=== PATIENT | female | born 1980 | race Caucasian/White ===

== ENCOUNTER 2023-10-09 11:40 | Emergency (ER) | payer MEDICARE, MEDICAID, SELFPAY ==
[2023-10-09 11:41] VITALS: BP 183/75; PULSE 67; TEMP 36.3; O2SAT 97; BMI 60.4
--- NOTE | 2023-10-09 12:54 | XR_ITS ---
The [address] [address] Patient Name: CARMEN MARIE MRN: [id number] date: 1980 Sex: F Assigned Patient Location: ER Current Patient Location: ER Accession/Order Number: [id number] Exam Date: 10/09/2023 13:15 Report Date: 10/09/2023 13:42 At the request of: LIBERTY FONG Procedure: XR chest 2V EXAMINATION: XR chest 2V HISTORY: sob COMPARISON: No relevant comparison available. TECHNIQUE: PA and lateral FINDINGS: LUNGS: No significant pulmonary parenchymal abnormalities. VASCULATURE: No increased pulmonary vasculature. PLEURA: No pneumothorax, effusion, or pleural thickening. Slight elevation the right hemidiaphragm CARDIAC: No cardiomegaly or cardiac silhouette abnormality. MEDIASTINUM: No visible mass or adenopathy. BONES: No fracture or visible bone lesion. OTHER: Right central line, the tip projects over the mid superior vena cava. Nipple piercings XR/XR chest 2V IMPRESSION: No acute cardiopulmonary process Electronically authenticated by: JOHAN ALARCON Date: 10/09/2023 13:42
[2023-10-09 13:45] VITALS: BP 138/78; PULSE 75; O2SAT 98
[2023-10-09 15:11] VITALS: BP 128/78; PULSE 70; O2SAT 100
--- NOTE | 2023-10-09 17:22 | ED.GENADUL1 ---
HPI HPI - General Adult General Chief complaint: Recheck/Abnormal Lab/Rx Stated complaint: CLOGGED PORT Time Seen by Provider: 10/09/23 12:54 Source: patient Mode of arrival: ambulance History of Present Illness HPI narrative: Patient is a 43-year-old female who is presenting to the ER with chief complaint of needing a new right chest dialysis cath. [facility] Dr. Diallo is the primary medical doctor for this physician. Patient was supposed to be sent to [facility]. EMS would not take patient to [facility], so they brought her to [facility]. Patient is very upset that she is here at [facility] because she knows that she needs dialysis, and she is due to see a vascular surgeon, however her biggest priority and concern right now is eating a sandwich. Patient initially arrived, all patient went to do was eat and drink and she was very upset that were not giving her something second possible surgery today. I was unaware of this patient, initially, did reach out to Dr. Diallo who is patient's physician for more information. It was noted that patient sees Dr. Parker from [facility] nephrology, that is the doctor that sees the patient in the [facility] where patient will get dialysis. Patient's vascular surgeon is from [facility]. Patient does not know the name of her soil conservation aide or her vascular surgeon. Patient has no headache, no chest pain or shortness of breath. No abdominal pain nausea vomiting. Patient states she is feeling up with fluid. All systems are negative except as noted/marked. All systems reviewed and otherwise negative. Nurses note and vital signs reviewed and patient is not hypoxic. General: The patient appears well and in no apparent distress. Patient is resting comfortably on cart. Patient is not toxic, lethargic, or listless Skin: Warm, dry, no pallor noted. There is no rash noted. No petechiae, purpura. Head: Normocephalic, atraumatic Eye: Normal conjunctiva, no drainage, EOMI. PERRL Ears, Nose, Mouth, and Throat: oral mucosa is moist. Nares patent. Mouth without vesicles. Cardiovascular: Regular Rate and Rhythm, no murmur, gallop, rub; patient has a right anterior chest wall candidate For dialysis access, the area around the cath is clean, dry, intact. Respiratory: Patient is in no distress, no accessory muscle use, lungs are clear to auscultation, no wheezing, rales or rhonchi Back: non-tender, no CVA tenderness bilaterally to percussion. No CT LS midline pain GI: no tenderness to palpation, no masses appreciated. No rebound, guarding, or rigidity noted. No distention Musculoskeletal: Patient has full range of motion of all of the extremities, no motor, sensory, or focal neurological deficits Neurological: A&O x4, normal speech Psychiatric: Cooperative Right anterior chest wall Related Data Allergies Allergy/AdvReac Type Severity Reaction Status Date / Time No Known Drug Allergies Allergy Verified 10/09/23 11:45 Opioid HPI Opioid Management Most Recent Opioid Data: No Data to Display Exam Constitutional Vital Signs, click to edit/add: Last Vital Signs Temp 97.3 F L 10/09/23 11:41 Pulse 70 10/09/23 15:11 Resp 16 10/09/23 15:11 BP 128/78 10/09/23 15:11 Pulse Ox 100 10/09/23 15:11 O2 Del Method Room Air 10/09/23 11:41 Course Vital Signs Vital signs: Vital Signs Temperature 97.3 F L 10/09/23 11:41 Pulse Rate 67 10/09/23 11:41 Respiratory Rate 22 H 10/09/23 11:41 Blood Pressure 183/75 H 10/09/23 11:41 Pulse Oximetry 97 10/09/23 11:41 Oxygen Delivery Method Room Air 10/09/23 11:41 Temperature 97.3 F L 10/09/23 11:41 Pulse Rate 70 10/09/23 15:11 Respiratory Rate 16 10/09/23 15:11 Blood Pressure 128/78 10/09/23 15:11 Pulse Oximetry 100 10/09/23 15:11 Oxygen Delivery Method Room Air 10/09/23 11:41 Medical Decision Making MDM Narrative Medical decision making narrative: I did speak to Dr. Diallo, who is patient's medical records tech at [facility]. He stated that patient should have been going to [facility], was uncertain why patient was taken to [facility]. Dr Diallo did see the patient in the nursing facility this morning. . Patient has been in the ER a lengthy amount of time today. Patient has been refusing IV and any lab work to be done initially. I did call Dr. Moncada, hospitalist from [facility] in [place] after my initial HPI and physical exam. After I spoke to Dr. Moncada, he agreed to admission at [facility] . He is aware the patient is refusing IV or lab work at this time until she gets to the admitting facility. Patient has been very upset with her miscommunication, upset that she was sent to the ER instead of going to [facility] by EMS, upset that she cannot eat and drink. ER nurse parks and recreation manager Brenda Ward RN was made aware and talk to the patient with me at bedside initially. After I initially spoke to Dr. Moncada, approximately 2 and half hours later we did obtain a bed number, and Dr. Moncada did then call me back right after he had a bed number [facility] and stated that we are not able to send patient to [facility] because the patient cannot have any type of vascular procedure until Thursday because of the weekend and also there is no dialysis that can be done this weekend. Dr Moncada apologized, and is recommending patient be transferred to other facilities. Patient was given this information with Brenda Ward RN and nurse parks and recreation manager that we are not able to send patient to [facility] at this time. Patient refused to go to [facility]. This was the second time that myself and Brenda Ward spoke to this patient at bedside about her concerns about her ER stay. Patient's is most upset again about her not eating or drinking. Patient is still refusing any type of IV, lab access. Patient is aware that her potassium levels could be very high, electrolytes could be abnormal, we could be missing life-threatening lab values. Patient is aware and disability, patient has a functional decision-making capacity to refuse any type of other care at [facility] at this time. 1615 I have spoken to the vascular surgeon twice, Dr. Gage Dominguez. He is aware of this patient very well, he states that patient will most likely need a permacath or a Emmanuel cath today, and will need dialysis today, especially since she has missed most of her dialysis this week. He is aware that she missed dialysis on Thursday, Thursday, and Thursday. He is also aware that patient is refusing IV, blood work he is also aware that she is very upset about all the miscommunication, not being at [facility], not being allowed to eat or drink.. He was excepting patient in consultation to [facility] if she agrees. When I talked the patient again, she is agreeing to go to [facility], and she is asking again for something eat or drink. I told her she is n.p.o. per Dr. Dominguez because she will be having vascular surgery procedure most likely this evening 1700 I did speak to the hospitalist from the [facility], Dr Garcia. He is excepting medical hospitalist, he is aware of vascular surgery to be in consultation. He is aware that I have spoken to Dr. Dominguez, but that Dr. Alcantara will be in consultation. Critical care time 55 minutes exclusive from separate billable procedures that were performed. The following was considered in the determination of critical care but not limited to the level of medical decision making, intensive cardiac and/or respiratory monitoring, frequent vital sign monitoring, evaluation of laboratory studies, evaluation of radiographic studies, oxygen monitoring, and constant monitoring and speaking to family at bedside Discharge Plan Discharge Chief Complaint: Recheck/Abnormal Lab/Rx Clinical Impression: Dialysis catheter clot or failure Patient Disposition: [facility] Time of Disposition Decision: 16:30 Discharge location: [facility],Dr Garcia hospitalist with Dr DOMINGUEZ vascular sx Condition: Fair
[2023-10-09 17:42] VITALS: BP 134/80; PULSE 73; O2SAT 100
[2023-10-09 20:44] VITALS: BP 170/90; PULSE 74; O2SAT 100
[2023-10-09] MEDS: CARVEDILOL 25 MG TABLET PO (21:10)
[2023-10-09] MEDS: LORAZEPAM 0.5 MG TABLET 1 MG PO (21:10)
[2023-10-09] MEDS: CYCLOBENZAPRINE HCL 10 MG TABLET PO (21:11)
[2023-10-09] MEDS: HYDRALAZINE HCL 25 MG TABLET 50 MG PO (21:11)
[2023-10-09 23:09] VITALS: BP 140/82
== END 2023-10-09 23:25 | disposition short-term general hospital (02) ==
PROVIDERS: Emergency Provider Internal Medicine; PCP Family Medicine
DX: T82.9XXA Unspecified complication of cardiac and vascular prosthetic device, implant and graft, initial encounter (principal); Z99.2 Dependence on renal dialysis
CPT/HCPCS: 71046; 99285

== ENCOUNTER 2024-06-17 15:25 | Outpatient (REF) | payer MEDICARE, MEDICAID, SELFPAY ==
[2024-06-17 15:39] LABS: Hemoglobin 8.3 g/dL (12.0-16.0); Mean Corpuscular HGB Conc 31.9 g/dL (29.9-35.2); Mean Corpuscular Hemoglobin 34.2 pg (26.7-34.0); Mean Platelet Volume 10.6 fL (9.5-13.5); Platelet Count 103 10^3/uL (150-450); Red Cell Distribution Width 16.1 % (11.0-15.0); White Blood Count 2.9 10^3/uL (4.0-11.0)
[2024-06-17 16:04] LABS: Anion Gap 12.6; BUN Creatinine Ratio 4.6; Calcium 7.6 mg/dL (8.5-10.1); Carbon Dioxide 29.7 mmol/L (21.0-32.0); Chloride 94 mmol/L (98-107); Estimated GFR (African America 8 (>=60 mL/min/1.73m^2); Estimated GFR (Non-African Ame 6 (>=60 mL/min/1.73m^2); Glucose 232 mg/dL (74-106); Potassium 4.3 mmol/L (3.5-5.1); Sodium 132 mmol/L (136-145)
[2024-06-17 17:35] LABS: Lymphocytes Absolute Manual 0.46 10^3/uL (1.20-3.80); Monocytes Absolute Manual 0.17 10^3/uL (0.30-0.80); Red Blood Count 2.43 10^6/uL (4.20-5.40); Segmented Neut Absolute Manual 2.26 10^3/uL (1.4-6.5)
== END 2024-06-17 15:26 | disposition home or self-care (01) ==
LOC: LAB 15:25
PROVIDERS: PCP Family Medicine; Visit Provider Nurse Practitioner Family
DX: N18.9 Chronic kidney disease, unspecified (principal)
CPT/HCPCS: 36415; 80048; 85007; 85027

== ENCOUNTER 2025-01-31 11:57 | Outpatient (REF) | payer MEDICARE, MEDICAID, SELFPAY ==
--- OUTSIDE RECORDS SUMMARY | 2023-12-22 04:30 | XMS_ITS ---
Author Organization The [facility] in [place] Address [address] [place] [address] Care Team Providers Care Director Of Strategy & Mobile Name Role Phone Imani EDWARDS, Marciano Primary Care Provider Unavailabl e Provider, ASC Unavailable [phone] Encounters Encounter Location Date Provider Diagnosis [facility] [address] [place] [address] 12/22/2023 [facility] Provider Plan Of Treatment No Information Progress Notes * Cassy MARIEOB:1980 ( 44 yo F)Acc No.[id number]:12/22/2023 UNLOCKED PROGRESS NOTE Patient:?CYNTHIA Kimberly :?ASC ProviderDOB:1980???Age:43 Y???Sex: FemaleDate:12/22/2023hone:[phone]:[address] [place] [id number]:Aaliyah Dominguez In:07:50 AM EST * * Electronic signature of ASC Provider on 01/31/2025 at 12:02 PM EDTSign off status: PendingVisit Status:?ARR (Check-In) * Provider: [employer] [place] Provider Date: 0 12/22/2023 Generated for Printing/Faxing/eTransmitting on:?01/31/2025 12:02 PM EDT
--- OUTSIDE RECORDS SUMMARY | 2023-12-29 02:45 | XMS_ITS ---
Author Organization The [facility] in [place] Address [address] [place] [address] Care Team Providers Care Milling Machine Operator Name Role Phone Imani EDWARDS, Marciano Primary Care Provider Shant Martínez [phone] REASON FOR VISIT -1 Week Follow Up- left endovascular creation Encounters Encounter Location Date Provider Diagnosis [facility] [address] [place] [address] 12/29/2023 Shant Craig Plan Of Treatment No Information Progress Notes * Cassy MARIEOB:1980 ( 44 yo F)Acc No.[id number]:12/29/2023 UNLOCKED PROGRESS NOTE Progress Note Patient: Kimberly WISDOM :?Shant Craig, MDDOB:1980???Age:43 Y ???Sex:FemaleDate:4Phone:[phone]:[address] [place], [place] [id number]:Marciano Diallo MD Subjective: * Chief Complaints: * 1 . -1 Week Follow Up- left endovascular creation. * Medical History: Objective: * Vitals: Assessment: Plan: * Treatment: * * Electronic signature of Shant rCaig MD, [id number] on 01/31/2025 at 12:02 PM EDT Sign off status: PendingVisit Status:?CANC (Cancelled) * Provider: Jimena Craig MD Date: 0 12/29/2023 Generated for Printing/Faxing/eTransmitting on:?01/31/2025 12:02 PM EDT
--- OUTSIDE RECORDS SUMMARY | 2023-12-29 09:30 | XMS_ITS ---
Author Organization The [facility] in [place] Address [address] [place] [address] Care Team Providers Care Temperer Name Role Phone Imani EDWARDS, Marciano Primary Care Provider Shant Martínez [phone] REASON FOR VISIT LT BC AVF Encounters Encounter Location Date Provider Diagnosis [facility] [address] [place] [address] 12/29/2023 Shant Craig Plan Of Treatment No Information Progress Notes * CYNTHIAMaverickMilagrosOB:1980 ( 44 yo F)Acc No.[id number]:12/29/2023 UNLOCKED PROGRESS NOTE Patient:Kimberly LINN :?Shant Craig, MDDOB:1980???Age:43 Y ???Sex:FemaleDate:4Phone:[phone]:[address] [place], [place] [phone]:Marciano Diallo MD * * Electronic signature of Shant Craig MD, [id number] on 01/31/2025 at 12:02 PM EDT Sign off status: PendingVisit Status:?R/S By O/P (Rescheduled by Office/Provider) * Provider: Jimena Craig MD Date: 0 12/29/2023 Generated for Printing/Faxing/eTransmitting on:?01/31/2025 12:02 PM EDT
--- OUTSIDE RECORDS SUMMARY | 2024-01-05 02:45 | XMS_ITS ---
Author Organization The [facility] in [place] Address [address] [place] [address] Care Team Providers Care Dairy Husbandry Teacher Name Role Phone Imani EDWARDS, Marciano Primary Care Provider Shant Martínez [phone] REASON FOR VISIT 1 week f/u fistula creation Encounters Encounter Location Date Provider Diagnosis [facility] [address] [place] [address] 01/05/2024 Shant Craig Plan Of Treatment No Information Progress Notes * Cassy MARIEOB:1980 ( 44 yo F)Acc No.[id number]:01/05/2024 UNLOCKED PROGRESS NOTE Progress Note Patient: Kimberly WISDOM :?Shant Craig, MDDOB:1980???Age:43 Y ???Sex:FemaleDate:4Phone:[phone]:[address] [place], [place] [phone]:Marciano Diallo MD Subjective: * Chief Complaints: * 1 . 1 week f/u fistula creation. * Medical History: Objective: * Vitals: Assessment: Plan: * Treatment: * * Electronic signature of Shant Craig MD, [id number] on 01/31/2025 at 12:03 PM EDT Sign off status: PendingVisit Status:?OFF CANC (OFFICE CANCEL) * Provider: Jimena Craig MD Date: 0 01/05/2024 Generated for Printing/Faxing/eTransmitting on:?01/31/2025 12:03 PM EDT
--- OUTSIDE RECORDS SUMMARY | 2024-01-05 09:30 | XMS_ITS ---
Author Organization The [facility] in [place] Address [address] [place] [address] Care Team Providers Care Chief Hydroelectric Station Operator Name Role Phone Imani EDWARDS, Marciano Primary Care Provider Unavailabl e Provider, ASC Unavailable [phone] Encounters Encounter Location Date Provider Diagnosis [facility] [address] [place] [address] 01/05/2024 [facility] Provider Plan Of Treatment No Information Progress Notes * Cassy MARIEOB:1980 ( 44 yo F)Acc No.[id number]:01/05/2024 UNLOCKED PROGRESS NOTE Patient:?CYNTHIA Kimberly :?ASC ProviderDOB:1980???Age:43 Y???Sex: FemaleDate:01/05/2024hone:[phone]:[address] [place] [phone]:Aaliyah Dominguez In:01:05 PM EST * * Electronic signature of [facility] Provider on 01/31/2025 at 12:03 PM EDTSign off status: PendingVisit Status:?ARR (Check-In) * Provider: A [place] Provider Date: 0 01/05/2024 Generated for Printing/Faxing/eTransmitting on:?01/31/2025 12:03 PM EDT
--- OUTSIDE RECORDS SUMMARY | 2025-01-17 04:30 | XMS_ITS ---
Author Organization [facility] Address [address] [place] [address] [address] [place] [address] Care Team Providers Care Site Project Manager Name Role Phone JUANA AVALOS Unavailable [phone] HOBBS ELA Unavailable [phone] REASON FOR VISIT Respiratory failure, Tobacco abuse, IVA Encounters Encounter Location Date Provider Diagnosis [facility] [address] [id number] 01/17/2025 E[facility] HOBBS Asthma J45.909 ; Chr onic hypoxic respiratory failure J96.11 ; Chronic diastolic heart failure I50.32 ; Pulmonary hypertension I27.20 ; Tobacco use Z72.0 and Obstructive sleep apnea (adult) (pediatric) G47.33 Assessments Encounter Date Diagnosis (ICD Code) Assessment Notes Treatment Notes Treatment Clinical Notes Section Notes 01/17/2025 Asthma (ICD-10 - J45.909) 01/17/2025hronic hypoxic respiratory failure (ICD-10 - J96.11)01/17/2025hronic diastolic heart failure (ICD-10 - I50.32)01/17/2025Pulmonary hypertension (ICD- 10 - I27.20)01/17/2025Tobacco use (ICD-10 - Z72.0)01/17/2025Obstructive sleep apnea (adult) (pediatric) (ICD-10 - G47.33)01/17/2025OtherSeen in collaboration and discussed plan of care with Dr. Juana Avalos Plan Of Treatment Treatment Notes Assessment Notes Other Seen in collaboratio n and discussed plan of care with Dr. Juana Avalos Next Appt Details Follow Up: 1 Week, Reason: Progress Notes * Cassy MARIEOB:1980 ( 44 yo F)Acc No.[id number]:01/17/2025 Progress Notes Patient: Kimberly WISDOM Provider:?Darellrebecca HobbsSEEMADOB:1980???Age:44 Y???Sex:FemaleDate:01/17/2025Phone:Address:[address] [facility], [phone] Subjective: * Chief Complaints: * R espiratory failureTobacco abuseOSA * HPI: ???Constitutional:? Continuing to see per facility request for pulmonary management. Evaluated patient in the facility today. Reviewed chart, vital signs, and any new orders. Discussedpulmonary status with the nurse and RT. Physical examination unchanged. Continue current orders as written. Patient is sitting at side of bed and reports she has a productive cough. She would like totry a Mucinex. No RT concerns.? Impression: Chronic hypoxic respiratory failure Asthma Chronic diastolic Heart failure Pulmonary hypertension? ESRD on HD Tobacco Abuse? Moderate IVA, test 07/16/24 Plan:? Start Mucinex Continue Auto CPAP 10-20 cmH2O (Repeat sleep study 10/20/24 with AHI 23 on CPAP, pt refused AVAPS and requested CPAP back) Spot check at HS, 1- 3LNC as needed to maintain saturations 90% or above, recommend need for nocturnal O2, pt refuses Albuterol neb Q6 PRN, Albuterol inhaler PRN Lasix 40mg daily Refuses smoking cessation education BMI reviewed, encourage weight loss and healthy diet with exercise Will continue to monitor pulmonary status. * ROS: ???All Other Systems:?Review of Systems (ROS)?All others negative except those mentioned in HPI, See HPI for details.? * Medical History: * Surgical History: * Hospitalization/Major Diagno stic Procedure: * Medications: Objective: * Vitals: * Examination: ???General Examination: ?GENERAL APPEARANCE:?morbidly obese, in no acute distress.?ORAL CAVITY:?mucosa moist.?THROAT:?normal.?NECK/THYROID:?neck supple, full range of motion, no cervical lymphadenopathy.?SKIN:?no suspicious lesions, warm and dry.?HEART:?no murmurs, regular rate and rhythm, S1, S2 normal. ?LUNGS:?clear to auscultation bilaterally.?EXTREMITIES:?no clubbing, cyanosis, or edema.?? ? Assessment: * Assessment: 1.?Chronic hypoxic respiratory failure - J96.11 (Primary)???2.?Asthma - J45 .909???3.?Chronic diastolic heart failure - I50.32???4.?Pulmonary hypertension - I27.20???5.?Tobacco use - Z72.0???6.?Obstructive sleep apnea (adult) (pediatric) - G47.33???Specify :Moderate??? Plan: * Treatment: Notes: Seen in collaboration and discussed plan of care with Dr. Juana Avalos?? * Procedure Codes: 9 9308 NURSING FAC CARE [id number] BMI >=30 CALCUATE W/FOLLOWUP * Follow Up: 1 Week * * Sign off status: Completed true * Appointment Provider: Abelino Hobbs NP Date: Generated for Printing/Faxing/eTransmitting on:?01/31/2025 12:01 PM EDT History and Physical Notes * HPI (History of Present Illness) CategorySub-CategoryDetailNotesCategory NotesConstitutional Continuing to see per facility request for pulmonary management. Evaluated patient in the facility today. Reviewed chart, vital signs, and any new orders. Discussedpulmonary status with the nurse and RT. Physical examination unchanged. Continue current orders as written. Patient is sitting at side of bed and reports she has a productive cough. She would like totry a Mucinex. No RT concerns. Impression: Chronic hypoxic respiratory failure Asthma Chronic diastolic Heart failure Pulmonary hypertension ESRD on HD Tobacco Abuse Moderate IVA, test 07/16/24 Plan: Start Mucinex Continue Auto CPAP 10-20 cmH2O (Repeat sleep study 10/20/24 with AHI 23 on CPAP, pt refused AVAPS and requested CPAP back) Spot check at HS, 1- 3LNC as needed to maintain saturations 90% or above, recommend need for nocturnal O2, pt refuses Albuterol neb Q6 PRN, Albuterol inhaler PRN Lasix 40mg daily Refuses smoking cessation education BMI reviewed, encourage weight loss and healthy diet with exercise Will continue to monitor pulmonary status Examination CategorySub-CategoryDetailNotesCategory NotesGeneral ExaminationGENERAL APPEARANCE:morbidly obese, in no acute distressTHROAT:normalNECK/THYROID:neck supple, full range of motion, no cervical lymphadenopathyHEART:no murmurs, regular rate and rhythm, S1, S2 normalLUNGS:clear to auscultation bilaterally SKIN:no suspicious lesions, warm and dryEXTREMITIES:no clubbing, cyanosis, or edemaORAL CAVITY:mucosa moist
--- OUTSIDE RECORDS SUMMARY | 2025-01-19 04:30 | XMS_ITS ---
Author Organization [facility] Address [address] [place] [address] [address] [place] [address] Care Team Providers Care Bleach Chlorinator Name Role Phone JUANA AVALOS Unavailable [phone] SELL RANDELL Unavailable [phone] REASON FOR VISIT Respiratory failure, Tobacco abuse, IVA Encounters Encounter Location Date Provider Diagnosis [place] [address] [phone] 01/19/2025 RANDELL SELL Asthma J45.909 ; Chr onic hypoxic respiratory failure J96.11 ; Chronic diastolic heart failure I50.32 ; Pulmonary hypertension I27.20 ; Tobacco use Z72.0 and Obstructive sleep apnea (adult) (pediatric) G47.33 Assessments Encounter Date Diagnosis (ICD Code) Assessment Notes Treatment Notes Treatment Clinical Notes Section Notes 01/19/2025 Asthma (ICD-10 - J45.909) 01/19/2025hronic hypoxic respiratory failure (ICD-10 - J96.11)01/19/2025hronic diastolic heart failure (ICD-10 - I50.32)01/19/2025Pulmonary hypertension (ICD- 10 - I27.20)01/19/2025Tobacco use (ICD-10 - Z72.0)01/19/2025Obstructive sleep apnea (adult) (pediatric) (ICD-10 - G47.33)01/19/2025OtherSeen in collaboration and discussed plan of care with Dr. Juana Avalos Plan Of Treatment Treatment Notes Assessment Notes Other Seen in collaboratio n and discussed plan of care with Dr. Juana Avalos Next Appt Details Follow Up: 1 Week, Reason: Progress Notes * Cassy MARIEOB:1980 ( 44 yo F)Acc No.[id number]:01/19/2025 Progress Notes Patient: Kimberly WISDOM Provider:?RANDELL PACHECO, SEEMADOB:1980???Age: 44 Y???Sex:FemaleDate:01/19/2025Phone:Address:[address] [facility], [phone] Subjective: * Chief Complaints: * R espiratory failureTobacco abuseOSA * HPI: ???Constitutional:? Continuing to see per facility request for pulmonary management. Rounded at bedside today for pulmonary rounds with the respiratory therapist. Reviewed orders. Willcontinue current plan of care at this time. Resident is resting in bed. No distress. No RT concerns.? Impression: Chronic hypoxic respiratory failure Asthma Chronic diastolic Heart failure Pulmonary hypertension? ESRD on HD Tobacco Abuse? Moderate IVA, test 07/16/24 Plan:? Continue Auto CPAP 10-20 cmH2O PRN (Repeat sleep study 10/20/24 with AHI 23 on CPAP, pt refused AVAPS and requested CPAP back) Spot check at HS, 1- 3LNC as needed to maintain saturations 90% or above, recommend need for nocturnal O2, pt refuses Albuterol neb Q6 PRN, Albuterol inhaler PRN Lasix 40mg daily Mucinex PRN Refuses smoking cessation education BMI reviewed, encourage [...] Procedure Codes: 9 9308 NURSING FAC CARE [id number] BMI >=30 CALCUATE W/FOLLOWUP * Follow Up: 1 Week * * Sign off status: Completed true * Appointment Provider: Krissy PACHECO NP Date: Generated for Printing/Faxing/eTransmitting on:?01/31/2025 12:01 PM EDT History and Physical Notes * HPI (History of Present Illness) CategorySub-CategoryDetailNotesCategory NotesConstitutional Continuing to see per facility request for pulmonary management. Rounded at bedside today for pulmonary rounds with the respiratory therapist. Reviewed orders. Willcontinue current plan of care at this time. Resident is resting in bed. No distress. No RT concerns. Impression: Chronic hypoxic respiratory failure Asthma Chronic diastolic Heart failure Pulmonary hypertension ESRD on HD Tobacco Abuse Moderate IAV, test 07/16/24 Plan: Continue Auto CPAP 10-20 cmH2O PRN (Repeat sleep study 10/20/24 with AHI 23 on CPAP, pt refused AVAPS and requested CPAP back) Spot check at HS, 1- 3LNC as needed to maintain saturations 90% or above, recommend need for nocturnal O2, pt refuses Albuterol neb Q6 PRN, Albuterol inhaler PRN Lasix 40mg daily Mucinex PRN Refuses smoking cessation education BMI reviewed, encourage [...]
--- OUTSIDE RECORDS SUMMARY | 2025-01-22 04:30 | XMS_ITS ---
Author Organization [facility] Address [address] [place] [address] [address] [place] [address] Care Team Providers Care Mental Health Associate Name Role Phone LAXMI AVALOSY Unavailable [phone] REASON FOR VISIT Respiratory failure, Tobacco abuse, IVA Encounters Encounter Location Date Provider Diagnosis [place] 401 [facility] it[address] [place], [place] [phone] 01/22/2025 JUANA AVALOS Asthma J45.909 ; Chr onic hypoxic respiratory failure J96.11 ; Chronic diastolic heart failure I50.32 ; Pulmonary hypertension I27.20 ; Tobacco use Z72.0 and Obstructive sleep apnea (adult) (pediatric) G47.33 Assessments Encounter Date Diagnosis (ICD Code) Assessment Notes Treatment Notes Treatment Clinical Notes Section Notes 01/22/2025 Asthma (ICD-10 - J45.909) 01/22/2025hronic hypoxic respiratory failure (ICD-10 - J96.11)01/22/2025hronic diastolic heart failure (ICD-10 - I50.32)01/22/2025Pulmonary hypertension (ICD- 10 - I27.20)01/22/2025Tobacco use (ICD-10 - Z72.0)01/22/2025Obstructive sleep apnea (adult) (pediatric) (ICD-10 - G47.33) Plan Of Treatment Next Appt Details Follow Up: 1 Week, Reason: Progress Notes * Cassy MARIEOB:1980 ( 44 yo F)Acc No.[id number]:01/22/2025 Progress Notes Patient: Kimberly WISDOM :?MITZI JaramilloOB:1980???Age:44 Y???Sex: FemaleDate:01/22/2025Phone:Address:[address] [place], [place] [phone] Subjective: * Chief Complaints: * R espiratory failureTobacco abuseOSA * HPI: ???Constitutional:? Continuing to see per facility request for pulmonary management. Discussed residents pulmonary status with the respiratory therapist in great detail. Reviewed orders and plan of care. Continue the same for now. Please let me know of any acute changes. Impression: Chronic hypoxic respiratory failure Asthma Chronic [...] (pediatric) - G47.33???Specify :Moderate??? Plan: * Treatment: * Procedure Codes: 9 9308 NURSING FAC CARE [id number] BMI >=30 CALCUATE W/FOLLOWUP * Follow Up: 1 Week * * ign off status: Completed true * Provider: Kyle Avalos MD Date: 1 Generated for Printing/Faxing/eTransmitting on:?01/31/2025 12:03 PM EDT History and Physical Notes * HPI (History of Present Illness) CategorySub-CategoryDetailNotesCategory NotesConstitutional Continuing to see per facility request for pulmonary management. Discussed residents pulmonary status with the respiratory therapist in great detail. Reviewed orders and plan of care. Continue the same for now. Please let me know of any acute changes. Impression: Chronic hypoxic respiratory failure Asthma Chronic diastolic Heart failure Pulmonary hypertension ESRD on HD Tobacco Abuse Moderate IVA, test 07/16/24 Plan: Continue Auto CPAP 10-20 [...]
--- OUTSIDE RECORDS SUMMARY | 2025-01-24 04:30 | XMS_ITS ---
Author Organization [facility] Address [address] [place] [address] [address] [place] [address] Care Team Providers Care Manager Utilization Review Name Role Phone JUANA AVALOS Unavailable [phone] ANJEL ELA Unavailable [phone] REASON FOR VISIT Respiratory failure, Tobacco abuse, IVA Encounters Encounter Location Date Provider Diagnosis [place] [address] [phone] 01/24/2025 ELA HOBBS Asthma J45.909 ; Chr onic hypoxic respiratory failure J96.11 ; Chronic diastolic heart failure I50.32 ; Pulmonary hypertension I27.20 ; Tobacco use Z72.0 and Obstructive sleep apnea (adult) (pediatric) G47.33 Assessments Encounter Date Diagnosis (ICD Code) Assessment Notes Treatment Notes Treatment Clinical Notes Section Notes 01/24/2025 Asthma (ICD-10 - J45.909) 01/24/2025hronic hypoxic respiratory failure (ICD-10 - J96.11)01/24/2025hronic diastolic heart failure (ICD-10 - I50.32)01/24/2025Pulmonary hypertension (ICD- 10 - I27.20)01/24/2025Tobacco use (ICD-10 - Z72.0)01/24/2025Obstructive sleep apnea (adult) (pediatric) (ICD-10 - G47.33)01/24/2025OtherSeen in collaboration and discussed plan of care with Dr. Juana Avalos Plan Of Treatment Treatment Notes Assessment Notes Other Seen in collaboratio n and discussed plan of care with Dr. Juana Avalos Next Appt Details Follow Up: 1 Week, Reason: Progress Notes * Cassy MARIEOB:1980 ( 44 yo F)Acc No.[id number]:01/24/2025 Progress Notes Patient: Kimberly WISDOM Provider:?Briankike HobbsSEEMADOB:1980???Age:44 Y???Sex:FemaleDate:01/24/2025Phone:Address:[address] [facility], [phone] Subjective: * Chief Complaints: * R espiratory failureTobacco abuseOSA * HPI: ???Constitutional:? Continuing to see per facility request for pulmonary management. Performed bedside rounds with the respiratory therapist today. Discussed the patients pulmonary status and current orders. Discussed concerns or needs by RT. Continue the orders at this time. She remains on RA and free from distress. No RT concerns. Heading outside. Feels better after the Mucinex. Impression: Chronic hypoxic respiratory failure Asthma Chronic [...] Procedure Codes: 9 9308 NURSING FAC CARE [id number] BMI >=30 CALCUATE W/FOLLOWUP * Follow Up: 1 Week * * Sign off status: Completed true * Appointment Provider: Abelino Hobbs NP Date: Generated for Printing/Faxing/eTransmitting on:?01/31/2025 12:02 PM EDT History and Physical Notes * HPI (History of Present Illness) CategorySub-CategoryDetailNotesCategory NotesConstitutional Continuing to see per facility request for pulmonary management. Performed bedside rounds with the respiratory therapist today. Discussed the patients pulmonary status and current orders. Discussed concerns or needs by RT. Continue the orders at this time. She remains on RA and free from distress. No RT concerns. Heading outside. Feels better after the Mucinex. Impression: Chronic hypoxic respiratory failure Asthma Chronic [...]
--- OUTSIDE RECORDS SUMMARY | 2025-01-26 04:30 | XMS_ITS ---
Author Organization [facility] Address [address] [place] [address] [address] [place] [address] Care Team Providers Care Pastry Assistant Name Role Phone JUANA AVALOS Unavailable [phone] RANDELL PACHECO Unavailable [phone] REASON FOR VISIT Respiratory failure, Tobacco abuse, IVA Encounters Encounter Location Date Provider Diagnosis [place] [address] [phone] 01/26/2025 RANDELL SELL Asthma J45.909 ; Chr onic hypoxic respiratory failure J96.11 ; Chronic diastolic heart failure I50.32 ; Pulmonary hypertension I27.20 ; Tobacco use Z72.0 and Obstructive sleep apnea (adult) (pediatric) G47.33 Assessments Encounter Date Diagnosis (ICD Code) Assessment Notes Treatment Notes Treatment Clinical Notes Section Notes 01/26/2025 Asthma (ICD-10 - J45.909) 01/26/2025hronic hypoxic respiratory failure (ICD-10 - J96.11)01/26/2025hronic diastolic heart failure (ICD-10 - I50.32)01/26/2025Pulmonary hypertension (ICD- 10 - I27.20)01/26/2025Tobacco use (ICD-10 - Z72.0)01/26/2025Obstructive sleep apnea (adult) (pediatric) (ICD-10 - G47.33) Plan Of Treatment Next Appt Details Follow Up: 1 Week, Reason: Progress Notes * Amber MARIE:1980 ( 44 yo F)Acc No.[id number]:01/26/2025 Progress Notes Patient: Kimberly WISDOM Provider:?RANDELL PACHECO NPDOB:1980???Age: 44 Y???Sex:FemaleDate:01/26/2025Phone:Address:[address] [facility], [phone] Subjective: * Chief Complaints: * R espiratory failureTobacco abuseOSA * HPI: ???Constitutional:? Continuing to see per facility request for pulmonary management. Performed bedside rounds with the respiratory therapist today. Discussed the patients pulmonary status and current orders. Discussed concerns or needs by RT. Continue the orders at this time. Patientis up in her wheelchair and free from distress. She reports the Mucinex is helping and would like it to continue PRN. She is smoking outside. No RT concerns. Impression: Chronic hypoxic respiratory [...] Procedure Codes: 9 9308 NURSING FAC CARE [id number] BMI >=30 CALCUATE W/FOLLOWUP * Follow Up: [...] RT. Continue the orders at this time. Patientis up in her wheelchair and free from distress. She reports the Mucinex is helping and would like it to continue PRN. She is smoking outside. No RT concerns. Impression: Chronic hypoxic respiratory [...]
--- OUTSIDE RECORDS SUMMARY | 2025-01-29 04:30 | XMS_ITS ---
Author Organization [facility] Address [address] [place] [address] [address] [place] [address] Care Team Providers Care Slot Editor Name Role Phone LAXMI AVALOSY Unavailable [phone] REASON FOR VISIT Respiratory failure, Tobacco abuse, IVA Encounters Encounter Location Date Provider Diagnosis [place] 401 [facility] it[address] [place], [place] [phone] 01/29/2025 JUANA AVALOS Asthma J45.909 ; Chr onic hypoxic respiratory failure J96.11 ; Chronic diastolic heart failure I50.32 ; Pulmonary hypertension I27.20 ; Tobacco use Z72.0 and Obstructive sleep apnea (adult) (pediatric) G47.33 Assessments Encounter Date Diagnosis (ICD Code) Assessment Notes Treatment Notes Treatment Clinical Notes Section Notes 01/29/2025 Asthma (ICD-10 - J45.909) 5Chronic hypoxic respiratory failure (ICD-10 - J96.11)01/29/2025hronic diastolic heart failure (ICD-10 - I50.32)01/29/2025Pulmonary hypertension (ICD- 10 - I27.20)01/29/2025Tobacco use (ICD-10 - Z72.0)01/29/2025Obstructive sleep apnea (adult) (pediatric) (ICD-10 - G47.33) Plan Of Treatment Next Appt Details Follow Up: 1 Week, Reason: Progress Notes * Cassy MARIEOB:1980 ( 44 yo F)Acc No.[id number]:01/29/2025 Progress Notes Patient: Kimberly WISDOM :?MITZI JaramilloOB:1980???Age:44 Y???Sex: FemaleDate:01/29/2025Phone:Address:[address] [place], [place] [phone] Subjective: * Chief Complaints: * R espiratory [...] Procedure Codes: 9 9308 NURSING FAC CARE [id number] BMI >=30 CALCUATE W/FOLLOWUP * Follow Up: [...]
--- OUTSIDE RECORDS SUMMARY | 2025-01-31 12:01 | XMS_ITS | Clinical Summary ---
Author Organization [facility] Address [address] [place] [address] Care Team Providers Care Blade Bender Furnace Tender Name Role Phone Marciano Diallo MD Unavailable Unallocated, Noms Provider MD Primary Care Provi mariaelena Allergies No known active allergies Medications MedicationSigDispense QuantityRefillsLast FilledStart DateEnd DateStatus diazePAM (Valium) 5 MG tablet Indications:AnxietyGive 1 tablet prior to leaving the facility on 01/05/24 for a fistula placement and 1 tablet to be taken at the appointment. 2 tablet 4Active pregabalin (Lyrica) 25 MG capsule Indications:Diabetic neuropathy, painful (HCC)Take 1 capsule (25 mg) by mouth in the morning and 1 capsule (25 mg) in the evening and 1 capsule (25 mg) before bedtime. 90 capsule 5Active LORazepam (Ativan) 1 MG tablet Indications:AnxietyTake 1 tablet (1 mg) by mouth 3 (three) times a day as needed for anxiety 90 tablet 5Active LORazepam (Ativan) 0.5 MG tablet Indications:AnxietyTake 1 tablet (0.5 mg) by mouth every 8 (eight) hours if needed for anxiety for up to 5 days 15 tablet 5Active pregabalin (Lyrica) 25 MG capsule Indications:Diabetic neuropathy, painful (HCC)Take 1 capsule (25 mg) by mouth in the morning and 1 capsule (25 mg) in the evening and 1 capsule (25 mg) before bedtime. 90 capsule 5Active LORazepam (Ativan) 1 MG tablet Indications:AnxietyTake 1 tablet (1 mg) by mouth every 8 (eight) hours if needed for anxiety for up to 14 days 42 tablet 5Active LORazepam (Ativan) 1 MG tablet Indications:AnxietyTake 1 tablet (1 mg) by mouth every 8 (eight) hours 90 tablet Discontinued(Reorder)Hospital, Clinic, or Other Facility Administered MedicationOrdered DoseRouteFrequencyStart DateEnd DateStatus triamcinolone acetonide (Kenalog) injection 5 mg Indications:Keloid scar5 jfZDUghb10/29/40401301/09/2025Ended Active Problems No known active problems Encounters DateTypeDepartmentCare TsqcQkbehpxpzla80/06/2025Telephone [facility] [address] [facility] [address] [place] [phone] Oneida Kan, SEEMA 01/09/2025 2:40 PM EDTOffice Visit [facility] [address] [place] [address] Alyssa Sutherland PA Seborrheic keratosis (Primary Dx); Keloid scar; Milia; Other specified erythematous dactfnfheu62/29/2025amboo flowsheet [facility] [address] [place] [address] Alyssa Sutherland PA 01/09/20256315Agfpjn88/09/2025bstract [facility] [address] [place] [address] Unallocated, Radhas MD Irene 12/13/2024bstract [facility] [address] [place] [phone] Unallocated, Radhas MD Irene 12/05/2024bstract [facility] [address] [place] [phone] Unallocated, Noms MD Irene 12/04/2024Results Follow-Up [facility] [address] [facility] [address] [place] [phone] Oneida Kan, SUPERVISOR [employer] SERVICES MR abdomen wo mynifgos03/06/2025Telephone [facility] [address] [facility] [address] [place] [phone] Oneida Kan NP 11/07/2024Telephone [facility] [address] [facility] [address] [place] [phone] Oneida Kan NP 11/06/2024External Result Encounter [facility] [address] [facility] [address] [place] [address] Oneida Kan, SEEMA from Last 3 Months Social History Tobacco UseTypesPacks/DayYears UsedDateSmoking Tobacco: NeverSmokeless Tobacco: Never Tobacco Cessation:Counseling Given: Not Answered CommentsUnknownSex and Gender InformationValueDate RecordedSex Assigned at BirthNot on fileLegal EmiMnndde79/05/2024 2:34 PM ESTGender IdentityNot on fileSexual OrientationNot on file Plan of Treatment DateTypeDepartmentCare Team (Latest Contact Info)Vebiquphzmx85/17/2025 1:40 PM ESTOffice Visit [facility] [address] [place] [address] Alyssa Sutherland, PA [address] [facility] [address] [place] [address] Health MaintenanceDue DateLast DoneCommentsDiabetes: Retinopathy Screening 1990Diabetes: Urine Protein Samfggxlz35/17/2000Pap Smear2001Cervical Cancer Qflcnjrou00/17/2011HPV/Nmezfi4407/28/2010Medicare Annual Wellness (AWV) Mammogram1Diabetes: Hemoglobin A1C09/19/2024 06/19/2024, 10/13/2023, 02/12/2021Influenza Vaccine (#1)2024 Procedures Procedure NamePriorityDate/TimeAssociated DiagnosisCommentsDER [facility] INTRALESIONAL KENALOG TFSEYMDCYUdervsx65/29/2025 2:41 PM EDT Keloid scar MR ABDOMEN WO FUOMPOKS43/27/2025 12:12 PM EDT from Last 3 Months Results * Intralesional Kenalog Injection (01/09/2025 2:41 PM EDT) Narrative Zhanna Chu MA - 01/09/2025 2:41 PM EDT Consent: The risks and benefits of intralesional kenalog were discussed prior to the procedure. Specifically, the risk of skin atrophy was reviewed. It was also emphasized that multiple treatments may be necessary. Verbal consent was obtained from the patient/parent. Method: ??See MAR for details on administration. The patient/parents were instructed to massage the injection site(s) following the procedure. Instructed to call for any questions or problems that occur. Areas injected: ??Left Anterior Neck Concentration injected: ??See MAR for details on administration. The patient/parents were instructed to massage the injection site(s) following the procedure. Instructed to call for any questions or problems that occur. Authorizing ProviderResult TypeResult StatusAlison Nghia [facility]WE[facility] PROCEDURE ORDERABLESFinal Result * MR abdomen wo contrast (11/06/2024 12:12 PM EDT)Anatomical RegionLaterality ModalityAbdomenMagnetic ResonanceSpecimen (Source)Anatomical Location / LateralityCollection Method / VolumeCollection TimeReceived Time11/06/2024 12:12 PM EDT Narrative 11/06/2024 12:10 PM EDT THIS EXAM WAS PERFORMED AT [facility] with MRI abdomen with and without contrast CLINICAL INFORMATION: Liver mass. The lack of IV contrast renders characterization of liver masses much less specific. TECHNIQUE/PROCEDURE: Multiplanar, multisequence MR imaging of the abdomen was performed with and without IV contrast, including MIP and 3D reformats performed on an independent workstation under concurrent physician supervision, which were then reviewed to further define anatomy and possible pathology. PROTOCOL: MRCP without and with intravenous contrast: COMPARISON: None. FINDINGS: Lower chest: Liver: Normal size. Contour is smooth. There is decreased signal on out of phase images most consistent with fatty infiltration. T2:No T2 bright lesions Contrast liver:No contrast given cannot comment on enhancement Spleen:Normal for noncontrast MRI Pancreas:No cystic lesions identified.. Normal pancreatic duct MRCP: No choledocholithiasis no fixed stricture. Common bile duct:5.7 mm Common hepatic duct:5.0 mm Intrahepatic ducts:No intrahepatic ductal dilatation. Gallbladder:Not visualized Adrenal glands:Normal Kidneys:Small cyst in the upper pole of the right kidney Upper abdominal bowel:Normal Upper abdominal mesentery:No adenopathy Upper peritoneum:Normal no fluid Retroperitoneum:No adenopathy Additional findings:In the lower left breast there is some abnormal signal which could indicate some fat necrosis correlate with any prior surgery IMPRESSION: * ??Fatty infiltration of the liver. No T2 bright liver masses. Cannot comment on abnormal enhancement. * ??No intra or extrahepatic biliary ductal dilatation. No stones. Bladder not visualized * ??In the lower left breast there is some abnormal signal which could indicate some fat necrosis correlate with any prior surgery Finalized by Sanjay Ellison MD on 11/06/2024 12:10 PM Procedure Note Radiology, Radiologist, - 11/06/2024 THIS EXAM WAS PERFORMED AT [facility] with MRI abdomen with and without contrast CLINICAL INFORMATION: Liver mass. The lack of IV contrast renders characterization of liver masses much less specific. TECHNIQUE/PROCEDURE: Multiplanar, multisequence MR imaging of the abdomen was performed withand without IV contrast, including MIP and 3D reformats performed on anindependent workstation under concurrent physician supervision, which werethen reviewed to further define anatomy and possible pathology. PROTOCOL: MRCP without and with intravenous contrast: COMPARISON: None. FINDINGS: Lower chest: Liver: Normal size. Contour is smooth. There is decreased signal on out ofphase images most consistent with fatty infiltration. T2:No T2 bright lesions Contrast liver:No contrast given cannot comment on enhancement Spleen:Normal for noncontrast MRI Pancreas:No cystic lesions identified.. Normal pancreatic duct MRCP: No choledocholithiasis no fixed stricture. Common bile duct:5.7 mm Common hepatic duct:5.0 mm Intrahepatic ducts:No intrahepatic ductal dilatation. Gallbladder:Not visualized Adrenal glands:Normal Kidneys:Small cyst in the upper pole of the right kidney Upper abdominal bowel:Normal Upper abdominal mesentery:No adenopathy Upper peritoneum:Normal no fluid Retroperitoneum:No adenopathy Additional findings:In the lower left breast there is some abnormal signalwhich could indicate some fat necrosis correlate with any prior surgery IMPRESSION: * Fatty infiltration of the liver. No T2 bright liver masses. Cannotcomment on abnormal enhancement. * No intra or extrahepatic biliary ductal dilatation. No stones. Bladdernot visualized * In the lower left breast there is some abnormal signal which couldindicate some fat necrosis correlate with any prior surgery Finalized by Sanjay Ellison MD on 11/06/2024 12:10 PM Authorizing ProviderResult TypeResult StatusOneida Kan NPIMG MRI PROCEDURES Final Result from Last 3 Months Insurance Care Teams Team MemberRelationshipSpecialtyStart DateEnd Date Marciano Diallo MD [address] [facility] [address] [place] [address] PCP - ACO Reach05/20/24 Unallocated, Noms MD Irene [address] [facility] [place] [address] PCP - GeneralFamily Medicine08/02/24
--- OUTSIDE RECORDS SUMMARY | 2025-01-31 12:01 | XMS_ITS | Encounter Summary ---
Author Organization [facility] Address [address] [facility] [place] [address] Care Team Providers Care Armature Varnisher Name Role Phone Marciano Diallo MD Unavailable Unallocated, [facility] Provider Primary Care Provi mariaelena Encounter Details DateTypeDepartmentCare Team (Latest Contact Info)Rjluiqawsgg63/06/2025Telephone [facility] [address] [place] [address] Oneida Treviño, COIL BINDER [address] [place], [place] [id number] Social History Tobacco UseTypesPacks/DayYears UsedDateSmoking Tobacco: NeverSmokeless Tobacco: NeverCommentsUnknownSex and Gender InformationValueDate RecordedSex Assigned at BirthNot on fileLegal AblKukbgt28/05/2024 2:34 PM ESTGender Identity Not on fileSexual OrientationNot on filedocumented as of this encounter Miscellaneous Notes * Telephone Encounter - Oneida Treviño NP - 01/16/2025 10:49 PM EDT Requested Prescriptions Signed Prescriptions Disp Refills LORazepam (Ativan) 1 MG tablet 42 tablet 0 Sig: Take 1 tablet (1 mg) by mouth every 8 (eight) hours if needed for anxiety for up to 14 days Authorizing Provider: ONEIDA TREVIÑO documented in this encounter Plan of Treatment DateTypeDepartmentCare Team (Latest Contact Info)Foxojlxbpmx49/17/2025 1:40 PM ESTOffice Visit [facility] [address] [place] [address] Alyssa Sutherland, AMITA [address] [place] [address] documented as of this encounter Visit Diagnoses Diagnosis Anxiety Anxiety state, unspecified documented in this encounter Care Teams Team MemberRelationshipSpecialtyStart DateEnd Date Marciano Diallo MD [address] [place] [address] PCP - [facility] Reach05/20/24 Unallocated, [facility] Provider, [address] [place], [place] [id number] PCP - GeneralFamily Medicine08/02/24documented as of this encounter
--- OUTSIDE RECORDS SUMMARY | 2025-01-31 12:02 | XMS_ITS | Patient Health Record ---
Author Organization [facility] Address [address] [place] [address] Care Team Providers Care Vice President Name Role Phone Marciano Diallo MD Primary Care Provider Unavailabl e Allergies No Known Allergies Reason For Referral No Information Medications Medication SIG (Take, Route, Frequency, Duration) Notes Start Date End Date Status HumaLOG KwikPen 100 UNIT/ML as directed Subcutan eous UnknownTylenol 325 MG1 tablet as needed Orally every 6 hrsUnknownhydrALAZINE HCl UnknownIsosorbide Mononitrate ER 60 MG1 tablet in the morning Orally Once a day UnknownLantus SoloStar 100 UNIT/MLas directed SubcutaneousUnknownLidocaine 4 %1 patch as needed Externally Once a dayUnknownAtorvastatin Calcium 40 MG1 tablet Orally Once a dayUnknownLORazepam 1 MG1 tablet at bedtime as needed Orally Once a dayUnknownCalcium Carbonate 1250 (500 Ca) MG1 tablet with food Orally Twice a dayUnknownLyrica 50 MG1 capsule in the evening 1 to 3 hours before bedtime Orally Once a dayUnknownCarvedilol 25 MG1 tablet with food Orally Twice a day UnknownNorvasc 10 MG1 tablet Orally Once a dayUnknownCyclobenzaprine HCl 10 MG1 tablet at bedtime as needed Orally Once a dayUnknownProAir HFAUnknownFolic Acid 1 MG1 tablet Orally Once a dayUnknownRena-Harini -1 tablet Orally Once a day UnknownFurosemide 20 MG1 tablet Orally Once a dayUnknownRenvela 800 MG1 tablet with meals Orally Three times a dayUnknown Social History Tobacco Use: Social History Observation Description Date Details (start date - stop date) Current Smoker NA - NA Tobacco Control (Standard) Question Answer Notes Tobacco use: Current smoker Problems Problem Type SNOMED Code ICD Code Onset Dates Problem Status W/U Status Risk Notes Problem Arteriovenous fistul a (disorder) (038554049) Arteriovenous fistula, acquired (I77.0) ActiveconfirmedProblemEnd stage renal disease (76757279)End stage renal disease (N18.6)ActiveconfirmedProblemDependence on renal dialysis (912820885)Dependence on renal dialysis (Z99.2)ActiveconfirmedProblemEnd stage renal disease (45611032)ESRD (end stage renal disease) (N18.6)ActiveconfirmedProblem Hyperphosphatemia (70883141)Hyperphosphatemia (E83.39)ActiveconfirmedProblem Anemia of renal disease (831230240)Anemia of renal disease (D63.1)Active confirmedProblemEssential hypertension (82369647)BP (high blood pressure) (I10) ActiveconfirmedProblemEnd stage renal disease (08925016)End stage chronic kidney disease (N18.6)Activeconfirmed Plan Of Treatment No Information Insurance Providers Payer Name Payer Address Payer Phone Subscriber Number Group Number Insured Name Patient Relationship to Insured Coverage Start Date Coverage End Date [place] [address] [place] [address] [id number] Jagdish Butler - patient is the [id number] 2012MEDICAID [facility] [address] [place], [place] [id number], MistySelf - patient is the [id number] 2022 Medical (General) History Medical History History ICD Code End stage chronic kidney disease N18.6
--- OUTSIDE RECORDS SUMMARY | 2025-01-31 12:02 | XMS_ITS ---
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 Name Role Phone Marciano Diallo MD Primary Care Provider Dialysis Access Sites TypeStatusLocationPlacement DateRemoval DateHemodialysis Catheter Double 12/09/24 Cuffed Right Internal JugularActiveRight Neck (side) - Anterior 12/09/2024Hemodialysis Catheter Double Right SubclavianInactiveRight Breast - Upper10/10/2023Hemodialysis Catheter Double 12/06/24 Cuffed Right Internal JugularInactiveRight Neck (side) - Fudivwtn94/Hemodialysis Catheter Double 12/02/24 Cuffed Right SubclavianInactiveRight Breast - Upper /Hemodialysis Catheter Double 11/23/24 Right Subclavian InactiveRight Breast - Upper/Hemodialysis Catheter Double 10/07/24 Cuffed Right Internal JugularInactiveRight Neck (side) - Anterior /Hemodialysis Catheter Double 10/03/24 Left Internal Jugular InactiveLeft Neck (side) - Evltsuro30/23//Hemodialysis Catheter Triple 10/03/24 Left Internal JugularInactiveLeft Neck (side) - Anterior 10/03//Hemodialysis Catheter Double 10/12/23 Cuffed Right Internal JugularInactiveRight Neck (side) - Rjfjckih94/Hemodialysis Catheter Double 10/10/23 Cuffed Right Internal JugularInactiveRight Neck (side) - Chqtitev25/04/2023 Procedures Procedure NamePriorityDate/TimeAssociated DiagnosisCommentsHEMODIALYSIS EKQIUTNJNVbudsnc85/30/2025 5:06 PM EDT CBC WITH AUTO WHWKURVBRGKTKqrqycc11/30/2025 12:27 PM EDT BASIC METABOLIC JMEREDbvjqpt60/30/2025 12:27 PM EDT HEMODIALYSIS FLUEVRDLVWulfjys35/29/2025 7:26 PM EDT CBC WITH AUTO AMLRSFWWGJMOGRHY64/29/2025 3:30 PM EDT RENAL QYWVLYOMG95/29/2025 1:54 PM EDT PROTIME & LFUTujrzrg48/29/2025 1:54 PM EDT BEDSIDE MKJDEHMQjpwrbd76/29/2025 12:18 PM EDT IR REPLACE TUNLD CICV CATH WO PORT/JIaemmsp21/29/2025 9:43 AM EDT HEMODIALYSIS YXOSJBMMMDbgeghk77/27/2025 4:23 PM EDT BEDSIDE AUEWTTCZkxzgrp15/27/2025 9:08 AM EDT HEMODIALYSIS PTMTMDUTKQimjdgq25/26/2025 5:43 PM EDT HEPATITIS B SURFACE XYFJLSDOutalad44/26/2025 3:03 PM EDT HEPATITIS B SURFACE ANTIBODY BCRAUDDOZSSIQjhlbwc53/26/2025 3:03 PM EDT RENAL ARDAEBVLP51/26/2025 3:03 PM EDT CBC WITH AUTO VAYFZURMRFKTIBMI65/ 3:03 PM EDT VEEJRZTGTMcjzujt73/26/2025 3:03 PM EDT CNZDMMUARRNQK42/26/2025 3:03 PM EDT IR REPLACE TUNLD CICV CATH WO PORT/PSTAT12/06/2024 11:52 AM EDT BEDSIDE YIEJWGLNqirupc36/26/2025 7:21 AM EDT BEDSIDE XRUHKBXObhawzi95/25/2025 9:33 PM EDT ER EXTRA URINE UGHYMWPUOZ23/25/2025 8:38 PM EDT ER EXTRA URINE EMVZQOGKSWI38/25/2025 8:38 PM EDT ER EXTRA MFUFEDYXG42/25/2025 8:38 PM EDT PM ED CENTRAL ZOLYWvgpgdk78/25/2025 6:51 PM EDT BLUE KQMSFER0512/05/2024 12:45 PM EDT RAINBOW BVWXAHTL42/25/2025 12:45 PM EDT CBC WITH AUTO IVIPYMQBSAJDZFUS83/25/2025 12:45 PM EDT BASIC METABOLIC MHZABDFKG22/25/2025 12:45 PM EDT VASCULAR IKNAFUHNWmutlbj92/22/2025 3:08 PM EDT End stage renal disease (CMS-HCC) POCT POTASSIUM, MQEXRHKPshaljw80/22/2025 12:57 PM EDT POCT NURSING URINE MACROSCOPIC VGSuwxmrz28/19/2025 3:55 PM EDT BLOOD GAS, NHDGPQZXNK52/19/2025 1:59 PM EDT TROP I, HIGH SENSITIVITY 1 QCARZZHN43/19/2025 1:44 PM EDT BLOOD QBQXZIFQENX72/19/2025 1:44 PM EDT ECG 12-FIWPMJGW77/19/2025 1:35 PM EDTMAGNESIUMSTAT Add-on11/29/2024 12:29 PM EDT GZQVXNZIPSWFSABFV69/19/2025 12:29 PM EDT TROPONIN I, HIGH SENSITIVITY 0 HRGLFFHQ25/19/2025 12:29 PM EDT COMPREHENSIVE METABOLIC LGMHXDKHM77/19/2025 12:29 PM EDT LACTATE W/ DPEBIZJRZC38/19/2025 12:29 PM EDT B-TYPE NATRIURETIC IDLVPOQHGGU91/19/2025 12:29 PM EDT TROPONIN I, HIGH SENSITIVITY 0 PWAODYWM78/19/2025 12:29 PM EDT KLRFVPNG84/19/2025 12:29 PM EDT PROTIME & KRHNVNK6511/29/2024 12:29 PM EDT CBC WITH AUTO YFKARCKGIQLOJOXV44/19/2025 12:29 PM EDT SARS/FLU A+B/RSV BY NAAT/MOLECULAR (M4RT COLLECTION TUBE)STAT11/29/2024 12:15 PM EDT VASCULAR VVUCFVOOCmmsmcu34/13/2025 4:17 PM EDT End stage renal disease (CMS-HCC) VASCULAR TDCIBYSAPpwfzzn65/13/2025 4:17 PM EDT End stage renal disease (CMS-HCC) POCT POTASSIUM, ERDTOFAUgxjaif18/13/2025 2:50 PM EDT MR ABDOMEN WO SLFPMvlhnvn84/24/2025 2:38 PM EDT Liver mass from Last 3 Months Allergies No known active allergies Medications MedicationSigDispense QuantityRefillsLast FilledStart DateEnd DateStatus atorvastatin (LIPITOR) 40 mg tablet Take 1 tablet (40 mg total) by mouth nightly.4Active melatonin (CIRCADIN) 5 mg tablet Take 2 tablets (10 mg total) by mouth nightly.Active rOPINIRole (REQUIP) 1 mg tablet Take 1 tablet (1 mg total) by mouth Daily after lunch.5Active amiodarone (PACERONE) 200 mg tablet Take 1 tablet (200 mg total) by mouth at noon.Active apixaban (ELIQUIS) 2.5 mg tablet Take 1 tablet (2.5 mg total) by mouth in the morning and 1 tablet (2.5 mg total) before bedtime.5Active ascorbic acid (VITAMIN C) 500 mg tablet Take 1 tablet (500 mg total) by mouth at noon.Active dilTIAZem CD (CARDIZEM CD) 120 mg 24 hr capsule Take 1 capsule (120 mg total) by mouth in the morning.5Active pantoprazole (PROTONIX) 40 mg EC tablet Take 1 tablet (40 mg total) by mouth at noon.Active magnesium oxide 250 mg tablet Take 1 tablet (250 mg total) by mouth in the morning.Active B complex-vitamin C-folic acid (NEPHROCAP) 1 mg capsule Take 1 capsule by mouth at noon.Active sevelamer (RENVELA) 800 mg tablet Take 2 tablets (1,600 mg total) by mouth in the morning and 2 tablets (1,600 mg total) at noon and 2 tablets (1,600 mg total) in the evening. Take with meals. 5Active insulin lispro (HumaLOG) 100 unit/mL insulin pen Inject 2-10 Units under the skin 4 (four) times a day with meals and nightly. Per sliding scale.5Active insulin glargine (LANTUS, SEMGLEE) 100 unit/mL (3 mL) insulin pen Inject 10 Units under the skin nightly.5Active Additional Information Patient taking differently: 13 Unitssubcutaneous Nightly, Reported on 12/06/2024 fluticasone propionate (FLONASE) 50 mcg/actuation nasal spray Administer 2 sprays into each nostril in the morning.5Active diphenhydrAMINE (BENADRYL) 25 mg capsule Take 1 capsule (25 mg total) by mouth every 8 (eight) hours as needed for itching.Active levothyroxine (SYNTHROID, LEVOTHROID) 25 MCG tablet Take 1 tablet (25 mcg total) by mouth in the morning.Active LORazepam (ATIVAN) 1 mg tablet Indications:AnxietyTake 1 tablet (1 mg total) by mouth every 8 (eight) hours as needed for anxiety. 9 tablet 5Active omega 2-pxz-dca-fish oil (Fish OiL) 300-1,000 mg capsule Take 1 tablet by mouth in the morning.Active albuterol (PROVENTIL HFA;VENTOLIN HFA) 90 mcg/actuation inhaler Inhale 2 puffs every 4 (four) hours as needed for wheezing.Active calcium carbonate (TUMS) 200 mg elemental (500 mg) chewable tablet Chew 1 tablet (200 mg total) and swallow 3 (three) times a day.Active Active Problems ProblemNoted DateDiagnosed DateNeuropathic pain12/07/20245965Omsfsgz71/27/2025Renal dqumogu1912/05/2024Septic shock09/30/2024Respiratory qdjnkok7706/19/2024End stage renal unlqjgn3604/11/2024Malfunction of peripheral inserted central catheter 10/11/2023lotted dialysis uoufzu1610/10/2023 Immunizations ImmunizationAdministration DatesNext DueCOVID-19 Vaccine, vector-nr, rS-Ad26, PF, 0.5mL1Pneumococcal Oqmechrlpkjjoe06/10/6796Fwgx44/23/2021 Social History Tobacco UseTypesPacks/DayYears UsedDateSmoking Tobacco: Every DayCigarettes0.5 39.8Started: 1986Passive Smoke Exposure: CurrentSmokeless Tobacco: Never Tobacco Cessation:Ready to Q uit: Not Asked; Counseling Given: Not Answered Comments:09/30/24- smokes approximately 6 cigarettes per day Alcohol UseStandard Drinks/WeekCommentsNever0 (1 standard drink = 0.6 oz pure alcohol)[facility] UtilitiesAnswerDate RecordedIn the past 12 months has the electric, gas, oil, or water company threatened to shut off services in your home?No 12/06/2024UDIT-CAnswerDate RecordedQ1: How often do you have a drink containing alcohol?Never12/06/2024Q2: How many drinks containing alcohol do you have on a typical day when you are drinking?Patient does not drink12/06/2024Q3: How often do you have six or more drinks on one occasion?Never12/06/2024PHQ-2AnswerDate RecordedTotal Bglbe474PRAPARE - TransportationAnswerDate RecordedIn the past 12 months, has lack of transportation kept you from medical appointments or from getting medications?No12/06/2024In the past 12 months, has lack of transportation kept you from meetings, work, or from getting things needed for daily living?No12/06/2024Housing InstabilityAnswerDate RecordedAre you worried or concerned that in the next two months you may not have stable housing that you own, rent or stay in as a part of a household?No12/06/2024Hunger Screening AnswerDate RecordedWithin the past 12 months we worried whether our food would run out before we got money to buy more.Never True12/06/2024Within the past 12 months the food we bought just didn't last and we didn't have money to get more. Never True12/06/2024CommentsNoSex and Gender InformationValueDate RecordedSex Assigned at BirthNot on fileLegal WlnFtixmu55/28/2024 5:01 PM EDT Gender IdentityNot on fileSexual OrientationNot on file Last Filed Vital Signs Vital SignReadingTime TakenCommentsBlood Pyyohfom544/5808 8:35 PM EDT Xzjqq641512/10/2024 8:35 PM YZYPmbxvjzrooa88.8 ??C (98.3 ??F)12/10/2024 8:35 PM EDTRespiratory Rpgp636112/10/2024 8:35 PM EDTOxygen Drgmlsqpra81%12/10/2024 8:35 PM EDTInhaled Oxygen Concentration--Iwzweh553.5 kg (345 lb 0.3 oz)12/10/2024 5:00 PM VSANfgnre920.2 cm (5' 7 )12/05/2024 12:01 PM EDTBody Mass Index54.04 12/05/2024 12:01 PM EDT Results * Hemodialysis inpatient (12/10/2024 5:06 PM EDT) Janeth Lechuga RN - 12/10/2024 5:06 PM EDT Janeth Jean Baptiste RN 12/10/2024 5:12 PM 2hr dialysis treatment completed to target 2-3L fluid removal. Tolerated fairly well. Primary issues with foot & back pain. Oriental x1. No other medications given w/ tx. Decreased target d/t cramping & intermittent borderline hypotension. New tunnel catheter working well but with lines reversed d/t arterial catching with pull. Area very tender. Dsg changed d/t bloody drainage. Pre wt standin.6kg Post wt: 156.5kg Net fluid removed: 2.1kg Post BP: 134/50 Report off to primary RN Fermin Authorizing ProviderResult TypeResult StatusPadilla Mar MDDIALYSIS ORDERABLES Final Result * (ABNORMAL) CBC auto differential (12/10/2024 12:27 PM EDT) Only the most recent of5 resultswithin the time period is included. ComponentValueRef RangeTest MethodAnalysis TimePerformed AtPathologist Signature WBC7.94 - 11 x10E9/L12/10/2024 12:56 PM [facility] RBC Count2.99(L)3.8 - 5.2 X10E12/L12/10/2024 12:56 PM [facility] RDSMYDAGHNOuxppxfupk73.2(L)11.7 - 15.5 g/dL12/10/2024 12:56 PM [facility] LIJKPUMCWYBlxdramcmb00.1(L)35 - 47 %12/10/2024 12:56 PM EDT [facility] JMYZUXZJIIQAT931(H)80 - 100 fL12/10/2024 12:56 PM EDT [facility] NIQQHHENVJWOI04.1(H)27 - 34 pg12/10/2024 12:56 PM EDT [facility] JUJPXNDDLMZECX41.832 - 36 g/dL12/10/2024 12:56 [facility] EWDYPSTTPQOHJ98.0(H)11.5 - 15 %12/10/2024 12:56 PM EDT [facility] LABORATORYPlatelet Lmqwq919229 - 450 X10E9/L12/10/2024 12:56 PM [facility]ORATORYMPV6.7(L)7 - 12 fL12/10/2024 12:56 PM [facility]ORYNeutrophils %76.3%12/10/2024 12:56 PM [facility]ORYLymphocytes %12.8%12/10/2024 12:56 PM [facility]ORYMonocytes %5.9%12/10/2024 12:56 PM [facility]ORYEosinophils %4.1%12/10/2024 12:56 PM [facility]ORYBasophils %0.9%12/10/2024 12:56 PM [facility] LAB[facility]ORYNeutrophils Absolute (A)6.01.5 - 6.6 10*3/uL 12/10/2024 12:56 PM [facility]ORYLymphocytes Absolute 1.01.0 - 3.5 10*3/uL12/10/2024 12:56 PM [facility] Monocytes Absolute0.50.0 - 0.9 10*3/uL12/10/2024 12:56 PM [facility]ORYEosinophils Absolute0.30.0 - 0.4 10*3/uL12/10/2024 12:56 PM [facility]ORYBasophils Absolute0.10.0 - 0.2 10*3/uL 12/10/2024 12:56 PM [facility]ORYDifferential Type AUTOMATED DRVHNNKLWYLD59/30/2025 12:56 PM [facility] Specimen (Source)Anatomical Location / LateralityCollection Method / Volume Collection TimeReceived TimeBloodVenous blood / UnknownVenipuncture / Unknown 12/10/2024 12:27 PM EDT12/10/2024 12:37 PM EDT Narrative Authorizing ProviderResult TypeResult StatusMaida A Helio MDLAB BLOOD ORDERABLESFinal ResultPerforming OrganizationAddressCity/State/ZIP CodePhone Number [facility] [address] [place] [address], * (ABNORMAL) Basic Metabolic Panel (12/10/2024 12:27 PM EDT) Only the most recent of2 resultswithin the time period is included. ComponentValueRef RangeTest MethodAnalysis TimePerformed AtPathologist Signature GZXNWN061858 - 146 mmol/L12/10/2024 1:39 PM [facility] LABORATORYPOTASSIUM4.33.5 - 5.0 mmol/L12/10/2024 1:39 PM [facility] BVQODMABUMCIGNZGIY2497 - 109 mmol/L12/10/2024 1:39 PM [facility] LABORATORYCARBON QWQSYKD26(L)22 - 32 mmol/L12/10/2024 1:39 PM [facility] LABORATORYANION GAP20(H)5 - 15 mmol/L12/10/2024 1:39 PM EDT [facility] LABORATORYBLOOD UREA SMZZCKPU00(H)5 - 23 mg/dL 12/10/2024 1:39 PM [facility] UIXUXCQJUCYQVWYDBAWH83.97(H)0.40 - 1.00 mg/dL12/10/2024 1:39 PM [facility]ATORYComment: METHOD TRACEABLE TO IDMS IVUZLDSDFGGBLKG024(H)65 - 99 mg/dL12/10/2024 1:39 PM [facility] LABORATORYCALCIUM9.18.5 - 10.5 mg/dL12/10/2024 1:39 PM [facility]ORYEGFR Non-Race Dependent2(L)>=60 ml/min/1.73sq.m012/10/2024 1:39 PM [facility]ATORYComment: Reported eGFR is based on the CKD-EPI 2020 equation that does not use a race coefficient. Specimen (Source)Anatomical Location / LateralityCollection Method / Volume Collection TimeReceived TimeBloodVenous blood / UnknownVenipuncture / Unknown 12/10/2024 12:27 PM EDT12/10/2024 12:37 PM EDT Narrative Authorizing ProviderResult TypeResult StatusMaida A Helio MDLAB BLOOD ORDERABLESFinal ResultPerforming OrganizationAddressCity/State/ZIP CodePhone Number [facility] [address] [place] [address], * Hemodialysis inpatient (12/09/2024 7:26 PM EDT) Narrative Kajal Warren RN - 12/09/2024 7:26 PM EDT Kajal Warren RN 12/09/2024 7:31 PM Dialysis Treatment Summary: Net Fluid Removal: 2.1L Treatment Duration: 2hrs Dialysis Medications/Blood Products Given During HD: Heparin Treatment Comments: Patient tolerated treatment without issue. Patient blood pressure stable throughout treatment. HD CVL functioned well at prescribed BFR of 350. Patient requested treatment be terminated with 1hr and 22mins left. Dr. Arzola notified. Primary RN Gautam given report. Post Weight: ??159.1kg Authorizing ProviderResult TypeResult StatusDanial Dariusz MDDIALYSIS ORDERABLES Final Result * (ABNORMAL) Renal panel (12/09/2024 1:54 PM EDT) Only the most recent of2 resultswithin the time period is included. ComponentValueRef RangeTest MethodAnalysis TimePerformed AtPathologist Signature ALBUMIN3.33.2 - 5.3 g/dL12/09/2024 2:41 PM [facility] LABORATORYCALCIUM8.58.5 - 10.5 mg/dL12/09/2024 2:41 PM [facility] LABORATORYPHOSPHORUS9.3(H)2.4 - 4.9 mg/dL12/09/2024 2:41 PM [facility] ZCMZDNBAOKAFUDYAN598(H)65 - 99 mg/dL12/09/2024 2:41 PM EDT [facility] LABORATORYBLOOD UREA CSSKHVVX698(H)5 - 23 mg/dL 12/09/2024 2:41 PM [facility] DFZCWKZULIASEGATTXPG06.46(H)0.40 - 1.00 mg/dL12/09/2024 2:41 PM [facility]ATORYComment: METHOD TRACEABLE TO IDMS DPLJJEHNSVRHKB756139 - 146 mmol/L12/09/2024 2:41 PM EDT [facility] LABORATORYPOTASSIUM4.53.5 - 5.0 mmol/L12/09/2024 2:41 PM [facility] VFTNBCRYELETGXZVSN46(L)98 - 109 mmol/L12/09/2024 2:41 PM [facility] LABORATORYCARBON RJNMTIV36(L)22 - 32 mmol/L 12/09/2024 2:41 PM [facility] LABORATORYANION GAP24(H)5 - 15 mmol/L12/09/2024 2:41 PM [facility]ORYEGFR Non-Race Dependent2(L)>=60 ml/min/1.73sq.m012/09/2024 2:41 PM [facility]ATORYComment: Reported eGFR is based on the CKD-EPI 2020 equation that does not use a race coefficient. Specimen (Source)Anatomical Location / LateralityCollection Method / Volume Collection TimeReceived TimeBloodVenous blood / Erfzwur1412/09/2024 1:54 PM EDT 12/09/2024 2:08 PM EDT Narrative Authorizing ProviderResult TypeResult StatusDaniacamilla DIEGO BLOOD ORDERABLES Final ResultPerforming OrganizationAddressCity/State/ZIP CodePhone Number [facility] [address] [place] [address], * (ABNORMAL) Protime & INR (12/09/2024 1:54 PM EDT) Only the most recent of2 resultswithin the time period is included. ComponentValueRef RangeTest MethodAnalysis TimePerformed AtPathologist Signature WUQIMOQ72.0(H)9.8 - 13.2 sec12/09/2024 2:45 PM [facility] LABORATORYINR1.20.9 - 1. 2:45 PM [facility] LABORATORYSpecimen (Source)Anatomical Location / LateralityCollection Method / VolumeCollection TimeReceived TimeBloodVenous blood / Bfwlvbu8212/09/2024 1:54 PM EDT12/09/2024 2:08 PM EDT Narrative Authorizing ProviderResult TypeResult StatusMaida A Helio MDLAB BLOOD ORDERABLESFinal ResultPerforming OrganizationAddressCity/State/ZIP CodePhone Number [facility] [address] [place] [address], [place] [phone] * (ABNORMAL) Bedside Glucose *Place/Obtain serum glucose if >500 per glucometer. (12/09/2024 12:18PM EDT) Only the most recent of4 resultswithin the time period is included. ComponentValueRef RangeTest MethodAnalysis TimePerformed AtPathologist Signature Bedside Glucose (POC)153(H)65 - 99 mg/dL12/09/2024 12:19 PM [facility]ATORYSpecimen (Source)Anatomical Location / LateralityCollection Method / VolumeCollection TimeReceived Timearterial/fafhzvntl64/29/2025 12:18 PM EDT 12/09/2024 12:19 PM EDT Narrative Authorizing ProviderResult TypeResult StatusMaida A Helio MDPOINT OF CARE TEST ORDERABLESFinal ResultPerforming OrganizationAddressCity/State/ZIP CodePhone Number [facility] [address] [place] [address], [place] * IR replace tunneled CICV catheter without port pump (12/09/2024 9:43 AM EDT) Only the most recent of2 resultswithin the time period is included. Anatomical RegionLateralityModalityIRN/AX-Ray AngiographySpecimen (Source) Anatomical Location / LateralityCollection Method / VolumeCollection Time Received Time Narrative 12/09/2024 12:48 PM EDT Pre-procedure diagnosis: See history below Post-procedure diagnosis: Same as above Assistants/resident: See the technologist's notes above Consent/pre-procedure evaluation: See below. ??[place] protocol timeout verification performed. Estimated blood loss: Less than 10 mL Procedure/complications: See below Radiation dosage measurements: See below and see technologist's notes above Conscious sedation: If conscious sedation was administered, preprocedure evaluation for conscious sedation was performed and documented. History: [Recently exchanged tunneled catheter did not work. During replacement of the catheter the previoustime the irregular SVC was angioplastied with a 10 mm balloon, the catheter was placed in the lowerright atrium, and contrast injection demonstrated no obvious clot or fibrin sheath. The patient has been off her anticoagulant Eliquis for several days.] Procedure: After explanation of the procedure, indications, risks, benefits, and alternatives to catheter exchange with possible balloon dilatation of fibrin sheath to the patient or responsible caregiver, the patient /responsible caregiver gave consent. The risks that were stressed include bleeding, infection, pain, vascular damage, malposition of the catheter, shortness of breath, and possible cardiopulmonary depression due to conscious sedation. The catheter insertion site was sterilely prepped and draped using maximal sterile barrier technique with cap, hat, gloves, gown, maximal sterile barrier technique, and appropriate personnel protective gear. The patient received [200] micrograms of intravenous fentanyl for pain control and not for conscious sedation by appropriately trained personnel with conscious sedation monitoring and documentation of heart rate, blood pressure, mental status, pulse oximetry. The patient received [5] digital images, 93.21 mGy air kerma radiation, and 1.5 minutes of fluoroscopy time. Contrast venogram through the existing catheter demonstrates fibrin sheath over the distalthe catheter and contrast staining of either residual fibrin sheath or clot at the distal margin of the catheter. Catheter position remains satisfactoryAfter placement of a wire through the existing catheter, the existing catheter was removed.[. Repeat dilatation with a 10 mm balloon was performed.Subsequently, a palindrome catheter with heparin bonding was inserted and the low right atrium near the right atrial junction with the IVC. There was brisk flow and no obvious clot or fibrin sheath. ] a new catheter was inserted into the proper position through a subcutaneous tunnel. Digital spot radiograph verifies satisfactory catheter position. The new catheter aspirates and flushes well and may be used. There was no immediate complication from the procedure. I was personally present throughout the entire procedure.[ ] Impression: Exchange of existing catheter for [23 cuff to tip palindrome catheter with additional heparin bonding] tunneled dialysis catheter after balloon dilatation of any fibrin sheath without immediate complication. The new catheter functions well and may be used. Initial venogram demonstrated contrast staining at the tip of the old catheter, likely due to clot or residual fibrin sheath. I understand that the anticoagulant has been stopped for several days. Itis likely that the patient's hypercoagulable state was responsible for catheter dysfunction yet again. 2500 units of intravenous heparin were administered immediately after new catheter insertion. The clinical service was notified immediately by the nurse to continue anticoagulation without collapse and to consider echocardiography to determine how much, if any, clot remains in the right atrium. Finalized by Raymon Campbell MD on 12/09/2024 12:48 PM Authorizing ProviderResult TypeResult Trupti Arzola MDIMG IR ORDERABLES Edited Result - Final * Hemodialysis inpatient (12/07/2024 4:23 PM EDT) Rena Nichols RN - 12/07/2024 4:23 PM EDT Rena French RN 12/07/2024 4:26 PM Pt unable to start treatment today d/t JIMMY not functioning.Pt had a 45 minute cathflo dwell. After dwell was removed, arterial line was still very sluggish with blood return. Venous line did better with blood return. Pt was started on treatment with lines reversed. Machine alarmed shortly after it started pulling blood. Blood did not even reach dialyzer before it started alarming. Treatment stopped. Call placed to Dr Arzola to update on JIMMY issues. Dr Arzola will place IR order. Transport ordered for pt to return to room. Report given to floor LUI Florez. BP: 146/87 HR: 85 - Rena French RN, Dialysis ??12/07/24 4:23 PM Authorizing ProviderResult TypeResult Trupti Arzola MDDIALYSIS ORDERABLES Final Result * Hemodialysis inpatient (12/06/2024 5:43 PM EDT) Kajal South RN - 12/06/2024 5:43 PM EDT Kajal Warren RN 12/06/2024 5:52 PM Dialysis Treatment Summary: Net Fluid Removal: 2.3L Treatment Duration: 2hrs Dialysis Medications/Blood Products Given During HD: None Treatment Comments: Patient tolerated treatment fair. 30 minutes into treatment, patient reported nausea, dry heaving and bowel incontinence. Goal was reduced during this time. Patient blood pressure stable throughout treatment. Patient did have one bowel movement during treatment, nausea medication ordered but not given due to nausea subsiding. HD CVL functioned well at 350 BFR with lines reversed ( A-V & A-V-A). Primary RN Gautam given report. Patient will run 12/07/[address] Arzola. Post Weight: 155kg Authorizing ProviderResult TypeResult StatusPito Arzola [facility] Final Result * Hepatitis B Surface Antibody Quantitation (12/06/2024 3:03 PM EDT)Component ValueRef RangeTest MethodAnalysis TimePerformed AtPathologist SignatureANTI HBS QUANT.<3.0mIU/mL12/06/2024 5:38 PM [facility] Specimen (Source)Anatomical Location / LateralityCollection Method / Volume Collection TimeReceived TimeBloodVenous blood / Qxmdraz9012/06/2024 3:03 PM EDT 12/06/2024 3:17 PM EDT Narrative [facility] - 12/06/2024 5:38 PM EDT Vaccinated: >=10 mIU/mL, Positive (Immune) Unvaccinated: <10 mIU/mL, Negative (Not Immune) Authorizing ProviderResult TypeResult Trupti Arzola [facility] BLOOD ORDERABLES Final ResultPerforming OrganizationAddressCity/State/ZIP CodePhone Number [facility] [address] [place] [address], * Hepatitis B surface antigen (12/06/2024 3:03 PM EDT)ComponentValueRef Range Test MethodAnalysis TimePerformed AtPathologist SignatureHEPATITIS B SURF AG Mje-LmiorguaAdb-Rjgisyjy19/26/2025 5:38 PM [facility] (Source)Anatomical Location / LateralityCollection Method / VolumeCollection TimeReceived TimeBloodVenous blood / Bnuqfhv8512/06/2024 3:03 PM EDT12/06/2024 3:17 PM EDT Narrative Authorizing ProviderResult TypeResult StatusPito Arzola [facility] BLOOD ORDERABLES Final ResultPerforming OrganizationAddressCity/State/ZIP CodePhone Number [facility] [address] [place] [address], * Potassium (12/06/2024 3:03 PM EDT)ComponentValueRef RangeTest MethodAnalysis TimePerformed AtPathologist SignaturePOTASSIUM3.73.5 - 5.0 mmol/L12/06/2024 4:17 PM [facility] (Source)Anatomical Location / LateralityCollection Method / VolumeCollection TimeReceived Time BloodVenous blood / Okdgspb4912/06/2024 3:03 PM EDT12/06/2024 3:17 PM EDT Narrative Authorizing ProviderResult TypeResult StatusPatrick Anne-Marie Buckner [facility] BLOOD ORDERABLESFinal ResultPerforming OrganizationAddressCity/State/ZIP CodePhone Number [facility] [address] [place] [address], * Magnesium (12/06/2024 3:03 PM EDT) Only the most recent of2 resultswithin the time period is included. ComponentValueRef RangeTest MethodAnalysis TimePerformed AtPathologist Signature MAGNESIUM1.91.8 - 2.6 mg/dL12/06/2024 4:17 PM [facility] (Source)Anatomical Location / LateralityCollection Method / VolumeCollection TimeReceived TimeBloodVenous blood / Dfuixdq9812/06/2024 3:03 PM EDT12/06/2024 3:17 PM EDT Narrative Authorizing ProviderResult TypeResult StatusAlbert Camden Aquino [facility] BLOOD ORDERABLES Final ResultPerforming OrganizationAddressCity/State/ZIP CodePhone Number [facility] [address] [place] [address], * Extra Urine Ruby (12/05/2024 8:38 PM EDT)ComponentValueRef RangeTest Method Analysis TimePerformed AtPathologist SignatureExtra TubeAuto Resulted 12/05/2024 10:01 PM [facility] (Source) Anatomical Location / LateralityCollection Method / VolumeCollection Time Received TimeUrineUrine / Bnskhdu5912/05/2024 8:38 PM EDT12/05/2024 9:04 PM EDT Narrative Authorizing ProviderResult TypeResult StatusCjtricbeatriz NELSON ORDERABLES Final ResultPerforming OrganizationAddressCity/State/ZIP CodePhone Number [facility] [address] [place] [address], [place] [phone] * Extra Urine Culture (12/05/2024 8:38 PM EDT)ComponentValueRef RangeTest Method Analysis TimePerformed AtPathologist SignatureExtra TubeAuto Resulted 12/05/2024 10:01 PM [facility] (Source) Anatomical Location / LateralityCollection Method / VolumeCollection Time Received TimeUrineUrine / Kmmkpgq9312/05/2024 8:38 PM EDT12/05/2024 9:04 PM EDT Narrative Authorizing ProviderResult TypeResult StatusCjtricbeatriz NELSON ORDERABLES Final ResultPerforming OrganizationAddressCity/State/ZIP CodePhone Number [facility] [address] [place] [address], [place] [phone] * Extra Urine (12/05/2024 8:38 PM EDT)ComponentValueRef RangeTest MethodAnalysis TimePerformed AtPathologist SignatureExtra TubeAuto Fhvhiekp04/25/2025 10:01 PM [facility] (Source)Anatomical Location / LateralityCollection Method / VolumeCollection TimeReceived TimeUrineUrine / Haywvus2612/05/2024 8:38 PM EDT12/05/2024 9:04 PM EDT Narrative Authorizing ProviderResult TypeResult StatusCjtricbeatriz NELSON ORDERABLES Final ResultPerforming OrganizationAddressCity/State/ZIP CodePhone Number [facility] [address] [place] [address], [place] [phone] * Central Line (12/05/2024 6:51 PM EDT) Narrative Andrei Buckner MD - 12/05/2024 6:51 PM EDT Andrei Buckner MD 12/05/2024 6:54 PM Central Line Date/Time: 12/05/2024 6:51 PM Performed by: Andrei Buckner MD Authorized by: Andrei Buckner MD ?? Consent: ??Consent obtained: ??Verbal ??Consent given by: ??Patient ??Risks, benefits, and alternatives were discussed: yes ?Risks discussed: ??Arterial puncture, incorrect placement, nerve damage, bleeding, infection and pneumothorax ??Alternatives discussed: ??No treatment, delayed treatment, alternative treatment, observation and referral [place] protocol: ??Procedure explained and questions answered to patient or proxy's satisfaction: yes ?Relevant documents present and verified: yes ?Test results available: yes ?Imaging studies available: yes ?Required blood products, implants, devices, and special equipment available: yes ?Site/side marked: yes ?Immediately prior to procedure, a time out was called: yes ?Patient identity confirmed: ??Arm band Pre-procedure details: ??Indication(s) comment: ??[place] for dialysis ??Hand hygiene: Hand hygiene performed prior to insertion ?Skin preparation: ??Chlorhexidine ??Skin preparation agent: Skin preparation agent completely dried prior to procedure ?? Sedation: ??Sedation type: ??None Anesthesia: ??Anesthesia method: ??Local infiltration ??Local anesthetic: ??Lidocaine 1% w/o epi Procedure details: ??Location: ??L internal jugular ??Site selection rationale: ??The patient declines any other site for her line. ??Patient position: ??Supine ??Procedural supplies: ??Triple lumen ??Catheter size: ??5 Fr ??Landmarks identified: yes ?Ultrasound guidance: yes ?Ultrasound guidance timing: prior to insertion and real time ?Sterile ultrasound techniques: Sterile gel and sterile probe covers were used ?Number of attempts: ??5 or more ??Successful placement: no ?? Post-procedure details: ??Post-procedure: ??Dressing applied Comments: ?? Despite multiple attempts at access we could not get the catheter to advance. ??We could get into the vein passed the wire with ease but the dilators and catheter could not be passed. ??Ultimately the patient requested i us to stop the procedure. ??She also states that she wants no other procedures to be attempted here in the emergency room for dialysis access. Authorizing ProviderResult TypeResult StatusCjtricbeatriz Buckner MDPROCEDURE/MINOR SURGICAL ORDERABLESFinal Result * Light Blue Top (12/05/2024 12:45 PM EDT)ComponentValueRef RangeTest Method Analysis TimePerformed AtPathologist SignatureExtra TubeAuto Resulted 12/05/2024 2:02 PM [facility] (Source) Anatomical Location / LateralityCollection Method / VolumeCollection Time Received TimeBloodVenous blood / UnknownVenipuncture / Ohddhos3412/05/2024 12:45 PM EDT12/05/2024 12:54 PM EDT Narrative Authorizing ProviderResult TypeResult StatusAndrei Buckner MDLAB BLOOD ORDERABLESFinal ResultPerforming OrganizationAddressCity/State/ZIP CodePhone Number [facility] [address] [place] [address], [place] [phone] * (ABNORMAL) POCT Potassium, Glucose (12/02/2024 12:57 PM EDT) Only the most recent of2 resultswithin the time period is included. ComponentValueRef RangeTest MethodAnalysis TimePerformed AtPathologist Signature POC Potassium4.63.5 - 5.0 mmol/L12/02/2024 1:00 PM [facility] POC Fctwhqe967(H)65 - 99 mg/dL12/02/2024 1:00 PM [facility] Specimen (Source)Anatomical Location / LateralityCollection Method / Volume Collection TimeReceived Time12/02/2024 12:57 PM EDT12/02/2024 12:59 PM EDT Narrative Authorizing ProviderResult TypeResult StatusMohamed F Alberto MDPOINT OF CARE TEST ORDERABLESFinal ResultPerforming OrganizationAddressCity/State/ZIP CodePhone Number [facility] [address] [place] [address], [place] * (ABNORMAL) POCT Nursing Urine Macroscopic UA (11/29/2024 3:55 PM EDT)Component ValueRef RangeTest MethodAnalysis TimePerformed AtPathologist SignaturePOC Urine Specific Gravity1.0151.010, 1.015, 1.020, 1.7042811/29/2024 3:45 PM EDT [facility] Urine Leukocyte EsteraseTrace(A) Bjaifhuq54/19/2025 3:[facility] XqsmcctZnwiaosaSqrwxiiq30/19/2025 3:45 PM [facility] Urine pH7.05.0, 6.0, 6.5, 7.0, 7.5, 8.0, 8.5, 5.508 3:45 PM [facility] Urine Protein>=300 mg/dL(A) Vwxtkahr09/19/2025 3:45 PM [facility] Urine XqzcyaiPnkgemypZnfkbcjb74/19/2025 3:45 PM [facility] Urine CwdzqpwNipmcznwMgnpkalp47/19/2025 3:45 PM [facility] Urine Urobilinogen0.2 E.U./dL11/29/2024 3:45 PM [facility] Urine BilirubinNegativeNegative 11/29/2024 3:45 PM [facility] Urine Blood/HGB Trace(A)Zoyxvhsw82/19/2025 3:45 PM [facility] Specimen (Source)Anatomical Location / LateralityCollection Method / Volume Collection TimeReceived NsuyOhwfp03/19/2025 3:55 PM EDT11/29/2024 3:45 PM EDT Narrative Authorizing ProviderResult TypeResult StatusSusan E Chehade MDPOINT OF CARE TEST ORDERABLESFinal ResultPerforming OrganizationAddressCity/State/ZIP CodePhone Number [facility] [address] [place] [address], * (ABNORMAL) Blood gas, venous (11/29/2024 1:59 PM EDT)ComponentValueRef Range Test MethodAnalysis TimePerformed AtPathologist SignatureSample typeVENOUS 11/29/2024 2:15 PM EDTPFAYETTE COUNTY [facility]OSPITALpH, Venous7.319(L) 7.320 - 7.5800711/29/2024 2:15 PM [facility]ALTHpCO2, Qllzot10.835.0 - 50.0 mmHg11/29/2024 2:15 PM [facility]ALTHpO2, Xjnbyd6304 - 50 mmHg11/29/2024 2:15 PM [facility]ALTHBase, Deficit-7.0(L)0.0 - 2.0 mmol/L11/29/2024 2:15 PM EDT [facility]ITALHCO3, Gfxnec82.4(L)20.0 - 24.0 mmol/L 11/29/2024 2:15 PM [facility]%O2 Saturation, Vhmfqh14.0%11/29/2024 2:15 PM [facility]OS[facility]ITALAllen's testN/A011/29/2024 2:15 PM [facility] SYSTEMample siteN/A 11/29/2024 2:15 PM [facility] HOSPITALInsp. O2 conc.28% 11/29/2024 2:15 PM [facility] SYSTEMource Of OxygenNC 11/29/2024 2:15 PM [facility] (Source) Anatomical Location / LateralityCollection Method / VolumeCollection Time Received TimevenousVenous blood / Aqgzkzg2911/29/2024 1:59 PM EDT11/29/2024 2:15 PM EDT Narrative Authorizing ProviderResult TypeResult StatusSusan E Sintia EDWARDSLAB BLOOD ORDERABLESFinal ResultPerforming OrganizationAddressCity/State/ZIP CodePhone Number [facility] [address] [place] [address], * (ABNORMAL) Troponin I, High Sensitivity 1 Hour (11/29/2024 1:44 PM EDT) ComponentValueRef RangeTest MethodAnalysis TimePerformed AtPathologist SignatureTROPONIN I, HIGH LMJXRZVOXUJ349(H)<16 ng/L11/29/2024 2:20 PM EDT [facility]ITALSpecimen (Source)Anatomical Location / LateralityCollection Method / VolumeCollection TimeReceived TimeBloodVenous blood / UnknownVenipuncture / Gpddctp5311/29/2024 1:44 PM EDT11/29/2024 1:50 PM EDT Narrative [facility] - 11/29/2024 2:20 PM EDT Elevations of hs-Troponin may be due to causes other than myocardial ischemia. Recommend serial hs-Troponin testing be performed. For the initial evaluation and management of chest pain patients, refer to the algorithms linked below. Emergency Patient: [email or web address] Inpatient: [email or web address] Authorizing ProviderResult TypeResult StatusKate Patricio [facility] BLOOD ORDERABLESFinal ResultPerforming OrganizationAddressCity/State/ZIP CodePhone Number [facility] [address] [place] [address], * (ABNORMAL) Blood culture (11/29/2024 1:44 PM EDT)ComponentValueRef RangeTest MethodAnalysis TimePerformed AtPathologist SignatureCULTURE RESULTS Diphtheroids(A)12/02/2024 9:51 PM [facility]ORATORYGRAM STAINGram positive bacilli(AA)12/02/2024 9:51 PM [facility]ATORYComment:Diphtheroid like.Specimen (Source)Anatomical Location / LateralityCollection Method / VolumeCollection TimeReceived TimeBloodVenous blood / UnknownPort / Irzjiuf6411/29/2024 1:44 PM EDT11/29/2024 1:52 PM EDT Narrative [facility] - 12/02/2024 9:51 PM EDT Possible Collection Contamination Unable to determine significance of positive culture when only one blood culture drawn. ??Contact microbiology if further information is required. Authorizing ProviderResult TypeResult StatusKate Patricio [facility] HOSPITALICROBIOLOGY - GENERAL ORDERABLESEdited Result - FinalPerforming OrganizationAddress City/State/ZIP CodePhone Number [facility] [address] [place] [address], * ECG 12 lead (11/29/2024 1:35 PM EDT)Specimen (Source)Anatomical Location / LateralityCollection Method / VolumeCollection TimeReceived Time11/29/2024 1:35 PM EDT Narrative Authorizing ProviderResult TypeResult StatusSurenetta ZENGG ORDERABLES Final ResultPerforming OrganizationAddressty/State/ZIP CodePhone Number [facility] * (ABNORMAL) Troponin I, High Sensitivity 0 Hour (11/29/2024 12:29 PM EDT) ComponentValueRef RangeTest MethodAnalysis TimePerformed AtPathologist SignatureTROPONIN I, HIGH KXSUSOWVXPI963(H)<16 ng/L11/29/2024 1:01 PM EDT [facility] ([facility])Anatomical Location / LateralityCollection Method / VolumeCollection TimeReceived TimeBloodVenous blood / UnknownVenipuncture / Trksmlj1911/29/2024 12:29 PM EDT11/29/2024 12:31 PM EDT Narrative Authorizing ProviderResult TypeResult StatusKate DIEGO BLOOD ORDERABLESFinal ResultPerforming OrganizationAddressJ.W. [facility]/State/ZIP CodePhone Number [facility] [address] [place] [address], * (ABNORMAL) Procalcitonin (11/29/2024 12:29 PM EDT)ComponentValueRef RangeTest MethodAnalysis TimePerformed AtPathologist IliwveeclEDFNSSIWCGHUI93.93(H)<0.05 ng/mL11/29/2024 1:02 PM EDTPThe [facility] Systemn (Source)Anatomical Location / LateralityCollection Method / VolumeCollection TimeReceived TimeBloodVenous blood / UnknownVenipuncture / Xnewasv8011/29/2024 12:29 PM EDT11/29/2024 12:31 PM EDT Narrative [facility] - 11/29/2024 1:02 PM EDT <0.50 ng/mL - Low risk of severe sepsis and/or septic shock. <2.00 ng/mL - Recommend retesting within 6-24 hours. >2.00 ng/mL - High risk of sepsis and/or septic shock. Authorizing ProviderResult TypeResult StatusSurenetta Patricio MDLAB BLOOD ORDERABLESFinal ResultPerforming OrganizationAddressCity/State/ZIP CodePhone Number [address] [place] [address], [place] * Lactate w/ Reflex (11/29/2024 12:29 PM EDT)ComponentValueRef RangeTest Method Analysis TimePerformed AtPathologist SignatureLACTATE W/REFLEX1.00.4 - 2.0 mmol/L11/29/2024 12:50 PM [facility]TPAC[facility] (Source)Anatomical Location / LateralityCollection Method / VolumeCollection TimeReceived TimeBloodVenous blood / UnknownVenipuncture / Anaruik6811/29/2024 12:29 PM EDT11/29/2024 12:31 PM EDT Narrative [facility] - 11/29/2024 12:50 PM EDT Result did not trigger repeat Lactate, re-order if needed. Authorizing ProviderResult TypeResult StatusSurenetta Patricio MDLAB BLOOD ORDERABLESFinal ResultPerforming OrganizationAddressCity/State/ZIP CodePhone Number [address] [place] [address], [place] * (ABNORMAL) APTT (11/29/2024 12:29 PM EDT)ComponentValueRef RangeTest Method Analysis TimePerformed AtPathologist OsjmijlddYZUT441(HH)26 - 37 sec11/29/2024 1:28 PM [facility] (Source)Anatomical Location / LateralityCollection Method / VolumeCollection TimeReceived Time BloodVenous blood / UnknownVenipuncture / Zsgogfa5011/29/2024 12:29 PM EDT 11/29/2024 12:31 PM EDT Narrative Authorizing ProviderResult TypeResult StatusSusabismark Patricio MDLAB BLOOD ORDERABLESFinal ResultPerforming OrganizationAddressty/State/ZIP CodePhone Number [address] [place] [address], * (ABNORMAL) B-type natriuretic peptide (11/29/2024 12:29 PM EDT)ComponentValue Ref RangeTest MethodAnalysis TimePerformed AtPathologist SignatureBNP2,478(H) <=100 pg/mL11/29/2024 1:22 PM EDTPACCESS HOSPITAL DAYTONpecimen (Source)Anatomical Location / LateralityCollection Method / VolumeCollection TimeReceived TimeBloodVenous blood / UnknownVenipuncture / Lzqiclh6111/29/2024 12:29 PM EDT11/29/2024 12:31 PM EDT Narrative Authorizing ProviderResult TypeResult StatusSurenetta Patricio MDLAB BLOOD ORDERABLESFinal ResultPerforming OrganizationAddressty/State/ZIP CodePhone Number [address] [place] [address], [place] * (ABNORMAL) Comprehensive metabolic panel (11/29/2024 12:29 PM EDT)Component ValueRef RangeTest MethodAnalysis TimePerformed AtPathologist SignatureSODIUM 128(L)134 - 146 mmol/L11/29/2024 1:11 PM EDTPFAYETTE COUNTY MEMORIAL HOSPITALPOTASSIUM5.1(H)3.5 - 5.0 mmol/L11/29/2024 1:11 PM [facility]OSPITALCHLORIDE91(L)98 - 109 mmol/L11/29/2024 1:11 PM EDTPFAYETTE COUNTY MEMORIAL HOSPITALCARBON FIBMYTK19(L)22 - 32 mmol/L11/29/2024 1:11 PM [facility] HOSPITALANION GAP20(H)5 - 15 mmol/L11/29/2024 1:11 PM [facility]ALTHBLOOD UREA XEWLZPPQ04(H)5 - 23 mg/dL11/29/2024 1:11 PM [facility] HOSPITALCREATININE16.46 (H)0.40 - 1.00 mg/dL11/29/2024 1:11 PM [facility] Comment:METHOD TRACEABLE TO IDMS STQTUCCBIYGCQZO594(H)65 - 99 mg/dL11/29/2024 1:11 PM [facility] HOSPITALCALCIUM8.4(L)8.5 - 10.5 mg/dL 11/29/2024 1:11 PM [facility] HOSPITALTOTAL PROTEIN7.16.0 - 8.0 g/dL11/29/2024 1:11 PM [facility] HOSPITALALBUMIN3.1(L) 3.2 - 5.3 g/dL11/29/2024 1:11 PM [facility] ALKALINE QKJLFZDLING8968 - 130 U/L11/29/2024 1:11 PM [facility]OSPITALAST95(H)<=41 U/L11/29/2024 1:11 PM [facility]ITALALT63(H)<=31 U/L11/29/2024 1:11 PM [facility] HOSPITALBILIRUBIN,TOTAL0.70.3 - 1.2 mg/dL11/29/2024 1:11 PM EDT [facility] HOSPITALEGFR Non-Race Dependent2(L)>=60 ml/min/1.73sq.m011/29/2024 1:11 PM [facility] Comment: Reported eGFR is based on the CKD-EPI 2020 equation that does not use a race coefficient. Specimen (Source)Anatomical Location / LateralityCollection Method / Volume Collection TimeReceived TimeBloodVenous blood / UnknownVenipuncture / Unknown 11/29/2024 12:29 PM EDT11/29/2024 12:31 PM EDT Narrative Authorizing ProviderResult TypeResult StatusSurenetta DIEGO BLOOD ORDERABLESFinal ResultPerforming OrganizationAddressCity/State/ZIP CodePhone Number [facility] [address] [place] [place] [address], * SARS/FLU A+B/RSV by NAAT/Molecular (M4RT Collection Tube) (11/29/2024 12:15 PM EDT)ComponentValueRef RangeTest MethodAnalysis TimePerformed AtPathologist SignatureFLU A UFAPihbxuhhEyvfwtbs13/19/2025 1:31 PM EDTPFAYETTE COUNTY MEMORIAL HOSPITALFLU B KPPPxqjkjrqRfsljvke33/19/2025 1:31 PM [facility] HEALTHRSV BY WLRToajxbiuVhtjtdfx37/19/2025 1:31 PM EDT [facility]ARS COV 2 BY PCRNot DetectedNot Detected 11/29/2024 1:31 PM [facility] SYSTEMpecimen (Source) Anatomical Location / LateralityCollection Method / VolumeCollection Time Received TimeSwabNasopharyngeal structure / Hithyti6211/29/2024 12:15 PM EDT 11/29/2024 12:32 PM EDT Narrative [facility] - 11/29/2024 1:31 PM EDT The Xpert Xpress SARS-CoV-2/Flu/RSV Plus test is a rapid, multiplexed real-time RT-PCR test intended for the simultaneous qualitative detection and differentiation of SARS-CoV-2, influenza A, influenza B and respiratory syncytial virus (RSV) viral RNA from individuals suspected of respiratory viral infection consistent with COVID-19 by Their healthcare provider. This test has not been validated in asymptomatic patients. The Xpert Xpress SARS-CoV-2 test is intended for use by qualified and trained operators who are performing tests using either GeneXJeeran DX or GeneLeapfunder Infinity systems and is limited to laboratories that meet the CLIA requirements to perform high and moderate complexity tests. The Xpert Xpress SARS-CoV-2/Flu/RSV Plus is only for use under the Food and Drug Administration's Emergency Use Authorization. Results are for the simultaneous detection and differentiation of SARS-CoV-2, influenza A, influenza B and RSV nucleic acids in clinical specimens. SARS-CoV-2, influenza A, influenza B and RSV RNA identified by this test are generally detectable in upper respiratory samples during the acute phase of infection. Positive results are Indicative of the presence of the identified virus, but do not rule out bacterial infection or co-infection with other pathogens not detected by this test. Clinical correlation with patient history and other diagnostic information is necessary to determine patient infection status. The agent detected may not be the definite cause of disease. Negative results do not preclude SARS-CoV-2, influenza A, influenza B and RSV infection and should not be used as the sole basis for treatment or other patient management decisions. Negative results must be combined with clinical observations, patient history and epidemiological information. An Invalid result may occur with specimen-associated inhibition unable to be resolved with specimen repeat. Fact Sheet for Healthcare Providers: ?? https://www.[employer].gov/media/398428/download ? Fact Sheet for Patients: ?? https://www.[employer].gov/media/825155/download ?? Authorizing ProviderResult TypeResult StatusSusan E Chehade MDMICROBIOLOGY - GENERAL ORDERABLESFinal ResultPerforming OrganizationAddressCity/State/ZIP Code Phone Number [facility]ÓPEZMER[facility] FAIRFIELD HOSPITALZeinab [facility] [address] [place] [address], * VASCULAR INVASIVE, PROGRAM MEDICAL DIRECTOR VENOUS INITIAL (11/23/2024 4:17 PM EDT)Anatomical RegionLateralityModalityX-Ray AngiographySpecimen (Source)Anatomical Location / LateralityCollection Method / VolumeCollection TimeReceived Time Narrative 11/23/2024 4:24 PM EDT Procedure Details Patient Name: Kimberly Butler Medical Record: [id number] Date of Operation: 11/23/2024 Pre-op diagnosis:?End-stage renal disease. Post-op diagnosis:?Same. Procedure:? Exchange of right chest tunneled dialysis catheter with 23 cm tip to cuff catheter Central venogram through right tunneled catheter SVC and right atrium Balloon angioplasty of fibrin sheath in the SVC right atrium with 8 x 40 mm followed by 10 x 40 mm mustang balloon Surgeon: John Calle MD Primary Leaf Sorter:??None Anesthesia:?Local with ??Lidocaine 1%, moderate sedation for 10 minutes with 2 versed and 25 mcgfentanyl. EBL:?5??cc Complications:?None. Indications:?54-year-old female with a history of end-stage renal disease who has a tunneled cath in place and it stopped working so she is here for exchange. Consent obtained for tunneled cath exchange patient agreeable to proceed. ?? Procedure:?Patient was brought to the operating room. ??The patient was placed on the table in supine position. ?? Right chest area was prepped and draped in the usual sterile fashion. ??Lidocainewas placed around the insertion site of the PermCath. ??Blunt dissection was used to free the cuff from the surrounding fibrous tissue using scissors and 11 blade. ??Once the fibrous tissue was connected to the to the cuff and the capsule around the catheter was dissected off. Prior to placing a wire through the catheter I did perform a central venogram of the SVC and right atrium and right ventricle. There appeared to be a significant fibrin sheath along the catheter. Given this finding I place d a 035 stiff Glidewire and then performed balloon angioplasty with a 8 x 40 mm followed by 10 x 40mm balloon up to 8 atmosphere. The catheter a new catheter wishes 23 cm tip to cuff was advanced over the wire into the correct location just past the sinoatrial junction secured into place with 3-0 nylon suture. Each of the ports aspirated and flushed without any resistance and we packed the portswith heparin at 1000 units/mL. Patient did well during the procedure and went to recovery room in stable condition. John Calle M.D. Vascular Surgery Authorizing ProviderResult TypeResult StatusBreregina Calle [facility] [place] CARDIAC CATH ORDERABLESEdited Result - Final * MR abdomen without contrast (11/03/2024 2:38 PM EDT)Anatomical Region LateralityModalityAbdomen, Body, Body CoveraN/AMagnetic ResonanceSpecimen (Source)Anatomical Location / LateralityCollection Method / VolumeCollection TimeReceived Time11/06/2024 12:05 PM EDT Narrative 11/06/2024 12:10 PM EDT MRCP with MRI abdomen with and without contrast [...] MD on 11/06/2024 12:10 PM Procedure Note Sanjay Ellison MD - 11/06/2024 MRCP with MRI abdomen with and without contrast CLINICAL INFORMATION: Liver mass. The lack of IV contrast renders characterization of liver masses much less specific. TECHNIQUE/PROCEDURE: Multiplanar, multisequence MR imaging of the abdomen was performed withand without IV contrast, including MIP and 3D reformats performed on anindepWOMN workstation under concurrent physician supervision, which werethen [...] 12:10 PM Authorizing ProviderResult TypeResult StatusOneida Kan C D STILL OPERATOR-CNPIMG MRI ORDERABLESFinal Result from Last 3 Months
--- OUTSIDE RECORDS SUMMARY | 2025-01-31 12:02 | XMS_ITS | Clinical Summary ---
Author Organization [employer] tem Address [id number] [address] [place] [address] Care Team Providers Care Shower Attendant Name Role Phone Marciano Diallo MD Primary Care Provider [phone] Allergies No known active allergies Medications MedicationSigDispense [...] pen Inject 10 Units under the skin nightly.10/07/2024tive Additional Information Patient taking differently: 13 Unitssubcutaneous [...] needed for anxiety. 9 tablet 5Active omega 8-uvv-hdi-fish oil (Fish OiL) 300-1,000 mg capsule Take 1 tablet by mouth in the morning.Active albuterol (PROVENTIL HFA;VENTOLIN HFA) 90 mcg/actuation inhaler Inhale 2 puffs every 4 (four) hours as needed for wheezing.Active calcium carbonate (TUMS) 200 mg elemental (500 mg) chewable tablet Chew 1 tablet (200 mg total) and swallow 3 (three) times a day.Active Active Problems ProblemNoted DateDiagnosed DateNeuropathic pain12/07/20245259Lnpblvh65/27/2025Renal zjaplau3312/05/2024Septic shock09/30/2024Respiratory hswaaoy7206/19/2024End stage renal nxrwtva68/30/2024Malfunction of peripheral inserted central catheter 4Clotted dialysis fdehvp0410/10/2023 Encounters DateTypeDepartmentCare ScegOcatraevppk21/25/2025 12:15 PM EDT - 12/11/2024 1:20 AM EDTHospital Encounter [facility] - [facility] 7W Acute [address] [place] [address] Andrei Buckner MD Pham, MD Helio Stevens Maida A, MD Suri, Pooja, MD Days, Pph Admitting Renal failure (Primary Dx); Neuropathic pain; Anxiety; Clotted dialysis access, initial encounter; Embolism due to vascular prosthetic devices, implants and grafts, initial encounter Discharge Disposition: Longterm Facility-Medicare Cert12/05/2024Telephone [facility] Call Center [address] [place] [address] Ashanti Kaye line placement (Contract: [phone] [facility] re Line placement)12/05/2024 Czyypj2812/02/2024 2:40 PM EDT - 12/02/2024 3:40 PM EDTSurgery [facility] - Cardiac Cath [address] [place] [address] Gage Dominguez MD Vascular Invasive CVC epgnmqfd73/22/2025 12:21 PM EDT - 12/02/2024 4:06 PM EDT Hospital Encounter [facility] - CVU-IVU [address] [place] [address] Gaeg Dominguez MD End stage renal disease ([facility]); Diabetes mellitus of other type without complication, unspecified 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 ([facility]) Discharge Disposition: Another Afuwrbjhtjp75/22/2942Xltomq08/20/2025 12:28 AM EDT - 11/30/2024 12:54 AM EDTEmergency [facility] Emergency [address] [place] [address] Cory Rosado MD Otalgia of right ear (Primary Dx); Acute otitis externa of right ear, unspecified type Discharge Disposition: Home11/30/2024Results Follow-Up [facility] - Emergency [address] [place] [phone] Elaine De La Fuente RN Blood qchdzij5811/30/20244960Fbxhzu94/19/2025 11:26 AM EDT - 11/29/2024 5:32 PM EDT Emergency [facility] - Emergency [address] [place] [phone] Kate Patricio MD Complication of vascular dialysis catheter, unspecified complication, initial encounter (Primary Dx); Hypoxia; Fever, unspecified fever cause; Abnormal laboratory test result Discharge Disposition: Left Against Medical Advice or Discontinued Care 11/29/20248289Qgqgam06/13/2025 3:30 PM EDT - 11/23/2024 4:30 PM EDTSurgery [facility] - [facility] [address] [place] [address] John Calle MD cvc yfgowvzx08/13/2025 1:53 PM EDT - 11/23/2024 5:30 PM EDTHospital Encounter [facility] - CVU-IVU [address] [place] [address] John aClle MD End stage renal disease ([facility]) Discharge Disposition: Home11/23/20249696Zisamx59/28/2025 1:45 PM EDTOffice Visit [facility], A Department of [facility] [address] [place] [phone] 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 Fatty liver (Primary Dx); Transaminitis; Hx of resection of liver; History of colon untsajtni10/28/6180Xjkjwx67/24/2025 1:09 PM EDT - 11/03/2024 11:59 PM EDTHospital Encounter [facility] - MRI Imaging [address] [place] [phone] Liver mass Discharge Disposition: Home11/03/2024Travelfrom Last 3 Months Immunizations ImmunizationAdministration DatesNext DueCOVID-19 Vaccine, vector-nr, rS-Ad26, PF, 0.5mL02/08/2021neumococcal Nwrirljhoionaw70/10/1693Tqph80/23/2021 Family History Medical HistoryRelationNameCommentsColon cancerMaternal GrandmotherRelationName StatusCommentsMaternal Grandmother Social History Tobacco UseTypesPacks/DayYears UsedDateSmoking Tobacco: Every DayCigarettes0.5 39.8Started: 1986Passive Smoke Exposure: CurrentSmokeless Tobacco: Never Tobacco Cessation:Ready to Q uit: Not Asked; Counseling Given: Not Answered Comments:09/30/24- smokes approximately 6 cigarettes per day Alcohol UseStandard Drinks/WeekCommentsNever0 (1 standard drink = 0.6 oz pure alcohol)[facility] UtilitiesAnswerDate RecordedIn the past 12 months has the [employer], [email or web address] Application, or water [employer] threatened to shut off services in your home?No 12/06/2024UDIT-CAnswerDate RecordedQ1: How often do you have a drink containing alcohol?Never12/06/2024Q2: How many drinks containing alcohol do you have on a typical day when you are drinking?Patient does not drink12/06/2024Q3: How often do you have six or more drinks on one occasion?Never12/06/2024PHQ-2AnswerDate RecordedTotal Jffym134PRAPARE - TransportationAnswerDate RecordedIn the past 12 months, [...] stay in as a part of a household?12/06/2024Hunger Screening AnswerDate RecordedWithin the past 12 months we worried whether our food would run out before we got money to buy more.Never True12/06/2024Within the past 12 months the food we bought just didn't last and we didn't have money to get more. Never True12/06/2024CommentsNoSex and Gender InformationValueDate RecordedSex Assigned at BirthNot on fileLegal DgyHvwpvo42/28/2024 5:01 PM EDT Gender IdentityNot on fileSexual OrientationNot on file Last Filed Vital Signs Vital SignReadingTime TakenCommentsBlood Qsriuosk372/58012/10/2024 8:35 PM EDT Ezybj805212/10/2024 8:35 PM KABGwctbckkylw59.8 ??C (98.3 ??F)12/10/2024 8:35 PM EDTRespiratory Lkzz393512/10/2024 8:35 PM EDTOxygen Jelouqomtv47%12/10/2024 8:35 PM EDTInhaled Oxygen Concentration--Dcqpce676.5 kg (345 lb 0.3 oz)12/10/2024 5:00 PM GDWDrekrm453.2 cm (5' 7 )12/05/2024 12:01 PM EDTBody Mass Index54.04 12/05/2024 12:01 PM EDT Plan of Treatment Health MaintenanceDue DateLast DoneCommentsDiabetic Ophthalmology Exam1980 Tobacco Opsqkoglmt24/17/1981Adult BMI Follow Up Plan1998Diabetic Foot Exam 1998Pap Smear2001COVID-19 Vaccine ( - season)2024 02/08/2021Influenza Kfnqebh4612/12/2024Depression Ikjuvjxhc98/26/ Tobacco Dwfpanckt07dult BMI Fetcjbrdr87 DTaP,Tdap and Td Vaccines (2 - Td or Tdap) Goals GoalPatient Goal TypeAssociated ProblemsRecent ProgressPatient-Stated?Author LTC Rupinder Lal, 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 Note: Evaluation of progress towards goal: progressing towards dc Medical Devices ImplantedTypeAreaManufacturerDevice IdentifierShelf Expiration DateModel / Serial / LotGraft Vsc 45cm 4-7mm Vnfl2 Stp Tpr Ptfe Hmdial - [id number] Implanted:Qty: 1 on 04/22/2024 [facility]: VeinBard Peripheral [id number] / / [id number] Cth 28cm 14fr Str Pu Splt3 2 Dmn Intnl Lum Tip Anegrd - [id number] Implanted:Qty: 1 on 10/10/2023 [facility] ImplantMedComp [id number] / / [id number] Pcng 45cm Palindrome Slvr An Slv 28cm - [id number] Implanted:Qty: 1 on 10/12/2023 by Bar Washington [facility] ImplantRight: ChestMEDTRONIC [id number]/23/2026 [id number] / / [id number] Hmdial 28cm 14.5fr Glidepath Argd Str Std Kt Smtr Rpl Special [id number] - [id number] Implanted:Qty: 1 on 11/23/2024 by John Calle [facility] ImplantBARD ACCESS SYSTEMS [id number]/[id number] / / [id number] Hmdial 28cm 14.5fr Glidepath Argd Str Std Kt Smtr Rpl Special [id number] - [id number] Implanted:Qty: 1 on 12/02/2024 by G[facility]uez [facility] ImplantBARD ACCESS SYSTEMS [id number]/30/[id number] / / [id number] Cth 28cm 14.5fr Str Glidepath 23cm Vlv Intro Smtr Tip Rpl Special 18609 - [id number] Implanted:Qty: 1 on 12/06/2024 by Duong Campbell [facility] at [facility] ImplantRight: ChestC R BARD INC A BD [id number]/31/2026 [id number] / / [id number]/Kit Cth 40cm Palindrome Dax Venatrac 23cm Strl [place] 2 Use Special [id number] - [id number] Implanted:Qty: 1 on 12/09/2024 by Duong Campbell [facility] ImplantMEDTRONIC [id number] / / Procedures Procedure NamePriorityDate/TimeAssociated DiagnosisCommentsHEMODIALYSIS ASOESQBDCSzplbtx48/30/2025 5:06 PM EDT CBC WITH AUTO NULWPDGENWNRWuwixgi97/30/2025 12:27 PM EDT BASIC METABOLIC NQPGTKaudcrp38/30/2025 12:27 PM EDT HEMODIALYSIS IKHDPDMGMEsmulmt37/29/2025 7:26 PM EDT CBC WITH AUTO ZBOOBDUVDOBBSZGV14/29/2025 3:30 PM EDT RENAL YCQNWUJES32/29/2025 1:54 PM EDT PROTIME & SXESyesdve42/29/2025 1:54 PM EDT BEDSIDE WUKGTYAFxiasyx67/29/2025 12:18 PM EDT IR REPLACE TUNLD CICV CATH WO PORT/WQarhxuw72/29/2025 9:43 AM EDT HEMODIALYSIS RBCLCSCVIOruqjju37/27/2025 4:23 PM EDT BEDSIDE ZPBFBKXMaofkwd75/27/2025 9:08 AM EDT HEMODIALYSIS PVPUNLRYAAlzptpd34/26/2025 5:43 PM EDT HEPATITIS B SURFACE MHNXFEAFgwfmjj90/26/2025 3:03 PM EDT HEPATITIS B SURFACE ANTIBODY JAALFGTRWJDAHmqkdrp51/26/2025 3:03 PM EDT RENAL MIXNQMPLZ86/26/2025 3:03 PM EDT CBC WITH AUTO GUXSKRJKXYPCUGSV96/26/2025 3:03 PM EDT TAOHDVJSOXqkhszw83/26/2025 3:03 PM EDT XIKZNWCKMVHXL08/26/2025 3:03 PM EDT IR REPLACE TUNLD CICV CATH WO PORT/PSTAT12/06/2024 11:52 AM EDT BEDSIDE BBWMDKDDnzkwdu65/26/2025 7:21 AM EDT BEDSIDE PVNKEPBAmgarhm37/25/2025 9:33 PM EDT ER EXTRA URINE NJGSAOWIJH03/25/2025 8:38 PM EDT ER EXTRA URINE RZKJWAGOXFE21/25/2025 8:38 PM EDT ER EXTRA POEMYXPKU98/25/2025 8:38 PM EDT PM ED CENTRAL GOZRHvcgwoe99/25/2025 6:51 PM EDT BLUE YWAVSKR8012/05/2024 12:45 PM EDT RAINBOW DPQWEEHI87/25/2025 12:45 PM EDT CBC WITH AUTO BVRYUBKRSYYRKJFI03/25/2025 12:45 PM EDT BASIC METABOLIC HBDZTRZKM17/25/2025 12:45 PM EDT VASCULAR IZIMGKJAEvfeuqu17/22/2025 3:08 PM EDT End stage renal disease ([facility]) POCT POTASSIUM, DKLFCLTNenzaes55/22/2025 12:57 PM EDT POCT NURSING URINE MACROSCOPIC LNIkkiijz58/19/2025 3:55 PM EDT BLOOD GAS, OZYWJOWJGN74/19/2025 1:59 PM EDT TROP I, HIGH SENSITIVITY 1 EJGCOIOB64/19/2025 1:44 PM EDT BLOOD PBOWRBEECFX47/19/2025 1:44 PM EDT ECG 12-NQEXMAFE43/19/2025 1:35 PM EDTMAGNESIUMSTAT Add-on11/29/2024 12:29 PM EDT EVDGWVEXHCAJQVJNS22/19/2025 12:29 PM EDT TROPONIN I, HIGH SENSITIVITY 0 HJVCAVFF80/19/2025 12:29 PM EDT COMPREHENSIVE METABOLIC OAIFYXJKG23/19/2025 12:29 PM EDT LACTATE W/ KWIDIJVFSP68/19/2025 12:29 PM EDT B-TYPE NATRIURETIC MLFCTOYGKJT30/19/2025 12:29 PM EDT TROPONIN I, HIGH SENSITIVITY 0 PBFGOCGX99/19/2025 12:29 PM EDT VRBPABFA32/19/2025 12:29 PM EDT PROTIME & LDPEIQE3311/29/2024 12:29 PM EDT CBC WITH AUTO DMJQBYRRYNHEZLYH58/19/2025 12:29 PM EDT SARS/FLU A+B/RSV BY NAAT/MOLECULAR (M4RT COLLECTION TUBE)STAT11/29/2024 12:15 PM EDT VASCULAR VOHNPMUEGcegwvl56/13/2025 4:17 PM EDT End stage renal disease (CMS-HCC) VASCULAR NCDCPENIYvsngxd59/13/2025 4:17 PM EDT End stage renal disease (CMS-HCC) POCT POTASSIUM, DYHQOZDHkvicmn92/13/2025 2:50 PM EDT MR ABDOMEN WO SNHYHycjzuh59/24/2025 2:38 PM EDT Liver mass from Last 3 Months Results * Hemodialysis inpatient (12/10/2024 5:06 PM EDT) Janeth Lechuga RN - 12/10/2024 5:06 PM EDT Janeth Jean Baptiste RN 12/10/2024 5:12 PM 2hr dialysis treatment completed to target 2-3L fluid removal. Tolerated fairly well. Primary issues with foot & back pain. [place] x1. No other medications given w/ tx. Decreased target d/t cramping & intermittent borderline hypotension. New tunnel catheter working well but with lines reversed d/t arterial catching with pull. Area very tender. Dsg changed d/t bloody drainage. Pre wt standin.6kg Post wt: 156.5kg Net fluid removed: 2.1kg Post BP: 134/50 Report off to primary LUI Christensen Authorizing ProviderResult TypeResult StatusPadilal Mar MDDIALYSIS ORDERABLES Final Result * (ABNORMAL) CBC auto differential (12/10/2024 12:27 PM EDT) Only the most recent of5 resultswithin the time period is included. ComponentValueRef RangeTest MethodAnalysis TimePerformed AtPathologist Signature WBC7.94 - 11 x10E9/L12/10/2024 12:56 PM [facility] RBC Count2.99(L)3.8 - 5.2 X10E12/L12/10/2024 12:56 PM [facility] HHNOBTYTRSAkdevfored06.2(L)11.7 - 15.5 g/dL12/10/2024 12:56 PM [facility] ZDGNCDKCNTXdmwaifnwd15.1(L)35 - 47 %12/10/2024 12:56 PM [facility] BSCGKLHVPQJJH178(H)80 - 100 fL12/10/2024 12:56 PM [facility] JOXFNWSLSUITG63.1(H)27 - 34 pg12/10/2024 12:56 PM [facility] IRLFMOGVENCLNL96.832 - 36 g/dL12/10/2024 12:56 PM [facility] SYJFQLESIFTIP21.0(H)11.5 - 15 %12/10/2024 12:56 PM [facility] LABORATORYPlatelet Nousg453581 - 450 X10E9/L12/10/2024 12:56 PM [facility]ORATORYMPV6.7(L)7 - 12 fL12/10/2024 12:56 PM [facility]ORYNeutrophils %76.3%12/10/2024 12:56 PM [facility]ORYLymphocytes %12.8%12/10/2024 12:56 PM [facility]ORYMonocytes %5.9%12/10/2024 12:56 PM [facility]ORYEosinophils %4.1%12/10/2024 12:56 PM [facility]OR[facility]ORYBasophils %0.9%12/10/2024 12:56 PM [facility] LABORATORYNeutrophils Absolute (A)6.01.5 - 6.6 10*3/uL 12/10/2024 12:56 PM [facility]ORATORYLymphocytes Absolute 1.01.0 - 3.5 10*3/uL12/10/2024 12:56 PM [facility] Monocytes Absolute0.50.0 - 0.9 10*3/uL12/10/2024 12:56 PM [facility]ORYEosinophils Absolute0.30.0 - 0.4 10*3/uL12/10/2024 12:56 PM EDT [facility]ORYBasophils Absolute0.10.0 - 0.2 10*3/uL 12/10/2024 12:56 PM [facility]ORATORYDifferential Type AUTOMATED ZYHWKADNCUVP70/30/2025 12:56 PM [facility] Specimen (Source)Anatomical Location / LateralityCollection Method / Volume Collection TimeReceived TimeBloodVenous blood / UnknownVenipuncture / Unknown 12/10/2024 12:27 PM EDT12/10/2024 12:37 PM EDT Narrative Authorizing ProviderResult TypeResult StatusMaida A Helio DIEGO BLOOD ORDERABLESFinal ResultPerforming OrganizationAddressCity/State/ZIP CodePhone Number [facility] [address] [place] [address], * (ABNORMAL) Basic Metabolic Panel (12/10/2024 12:27 PM EDT) Only the most recent of2 resultswithin the time period is included. ComponentValueRef RangeTest MethodAnalysis TimePerformed AtPathologist Signature WYHGAC918054 - 146 mmol/L12/10/2024 1:39 PM [facility] LABORATORYPOTASSIUM4.33.5 - 5.0 mmol/L12/10/2024 1:39 PM [facility] FEINMISKMCGQELRNYQ7373 - 109 mmol/L12/10/2024 1:39 PM [facility] LABORATORYCARBON EGQQBTX28(L)22 - 32 mmol/L12/10/2024 1:39 PM [facility] LABORATORYANION GAP20(H)5 - 15 mmol/L12/10/2024 1:39 PM EDT [facility] LABORATORYBLOOD UREA OFLFOFVG97(H)5 - 23 mg/dL 12/10/2024 1:39 PM [facility] CRTGAEDQJXFFKPMOKENS47.97(H)0.40 - 1.00 mg/dL12/10/2024 1:39 PM [facility] LABORATORYComment: METHOD TRACEABLE TO IDMS LQLVQLMBCFGAJDF877(H)65 - 99 mg/dL12/10/2024 1:39 PM [facility] LABORATORYCALCIUM9.18.5 - 10.5 mg/dL12/10/2024 1:39 PM [facility]ORYEGFR Non-Race Dependent2(L)>=60 ml/min/1.73sq.m012/10/2024 1:39 PM [facility] LABORATORYComment: Reported eGFR is based on the CKD-EPI 2020 equation that does not use a race coefficient. Specimen (Source)Anatomical Location / LateralityCollection Method / Volume Collection TimeReceived TimeBloodVenous blood / UnknownVenipuncture / Unknown 12/10/2024 12:27 PM EDT12/10/2024 12:37 PM EDT Narrative Authorizing ProviderResult TypeResult StatusMaida A Helio MDLAB BLOOD ORDERABLESFinal ResultPerforming OrganizationAddressCity/State/ZIP CodePhone Number [facility] [address] [place] [address], * Hemodialysis inpatient (12/09/2024 7:26 PM EDT) [...] Signature ALBUMIN3.33.2 - 5.3 g/dL12/09/2024 2:41 PM [facility] LABORATORYCALCIUM8.58.5 - 10.5 mg/dL12/09/2024 2:41 PM [facility] LABORATORYPHOSPHORUS9.3(H)2.4 - 4.9 mg/dL12/09/2024 2:41 PM [facility] NBTWHQLBFZROHFFXO422(H)65 - 99 mg/dL12/09/2024 2:41 PM EDT [facility] LABORATORYBLOOD UREA SCEDLQAZ370(H)5 - 23 mg/dL 12/09/2024 2:41 PM [facility] JZJAUFXLLFWZOYIXTFUK58.46(H)0.40 - 1.00 mg/dL12/09/2024 2:41 PM [facility] LABORATORYComment: METHOD TRACEABLE TO IDMS MBRRIARZMZDCJC200461 - 146 mmol/L12/09/2024 2:41 PM EDT [facility] LABORATORYPOTASSIUM4.53.5 - 5.0 mmol/L12/09/2024 2:41 PM [facility] OMYMPJVSADNVCRHKRJ83(L)98 - 109 mmol/L12/09/2024 2:41 PM [facility] LABORATORYCARBON XZMYPCQ92(L)22 - 32 mmol/L 12/09/2024 2:41 PM [facility] LABORATORYANION GAP24(H)5 - 15 mmol/L12/09/2024 2:41 PM [facility] LAB[facility]ORYEGFR Non-Race Dependent2(L)>=60 ml/min/1.73sq.m012/09/2024 2:41 PM [facility]ATORYComment: Reported eGFR is based on the CKD-EPI 2020 equation that does not use a race coefficient. Specimen (Source)Anatomical Location / LateralityCollection Method / Volume Collection TimeReceived TimeBloodVenous blood / Pvpyhrs4312/09/2024 1:54 PM EDT 12/09/2024 2:08 PM EDT Narrative Authorizing ProviderResult TypeResult StatusDaniacamilla DIEGO BLOOD ORDERABLES Final ResultPerforming OrganizationAddressCity/State/ZIP CodePhone Number [facility] [address] [place] [address], * (ABNORMAL) Protime & INR (12/09/2024 1:54 PM EDT) Only the most recent of2 resultswithin the time period is included. ComponentValueRef RangeTest MethodAnalysis TimePerformed AtPathologist Signature SDLHZQN43.0(H)9.8 - 13.2 sec12/09/2024 2:45 PM [facility] LABORATORYINR1.20.9 - 1.208 2:45 PM [facility] LABORATORYSpecimen (Source)Anatomical Location / LateralityCollection Method / VolumeCollection TimeReceived TimeBloodVenous blood / Nmxnczy5312/09/2024 1:54 PM EDT12/09/2024 2:08 PM EDT Narrative Authorizing ProviderResult TypeResult StatusMaida A Helio MDLAB BLOOD ORDERABLESFinal ResultPerforming OrganizationAddressCity/State/ZIP CodePhone Number [facility] [address] [place] [address], * (ABNORMAL) Bedside Glucose *Place/Obtain serum glucose if >500 per glucometer. (12/09/2024 12:18PM EDT) Only the most recent of4 resultswithin the time period is included. ComponentValueRef RangeTest MethodAnalysis TimePerformed AtPathologist Signature Bedside Glucose (POC)153(H)65 - 99 mg/dL12/09/2024 12:19 PM [facility] LABORATORYSpecimen (Source)Anatomical Location / LateralityCollection Method / VolumeCollection TimeReceived Timearterial/bvjmthnis13/29/2025 12:18 PM EDT 12/09/2024 12:19 PM EDT Narrative Authorizing ProviderResult TypeResult StatusMaida A Helio MDPOINT OF CARE TEST ORDERABLESFinal ResultPerforming OrganizationAddressCity/State/ZIP CodePhone Number [facility] [address] [place] [address], [place] * IR replace tunneled CICV catheter [...] technologist's notes above Consent/pre-procedure evaluation: See below. ??[place] protocol timeout verification performed. Estimated blood loss: [...] Arzola. Post Weight: 155kg Authorizing ProviderResult TypeResult StatusDaniacamilla Arzola MDDIALYSIS ORDERABLES Final Result * Hepatitis B Surface Antibody Quantitation (12/06/2024 3:03 PM EDT)Component ValueRef RangeTest MethodAnalysis TimePerformed AtPathologist SignatureANTI HBS QUANT.<3.0mIU/mL12/06/2024 5:38 PM [facility] Specimen (Source)Anatomical Location / LateralityCollection Method / Volume Collection TimeReceived TimeBloodVenous blood / Iwplqno8212/06/2024 3:03 PM EDT 12/06/2024 3:17 PM EDT Narrative [facility] - 12/06/2024 5:38 PM EDT Vaccinated: >=10 mIU/mL, Positive (Immune) Unvaccinated: <10 mIU/mL, Negative (Not Immune) Authorizing ProviderResult TypeResult StatusDaangie Arzola [facility] BLOOD ORDERABLES Final ResultPerforming OrganizationAddressCity/State/ZIP CodePhone Number [facility] [address] [place] [address], * Hepatitis B surface antigen (12/06/2024 3:03 PM EDT)ComponentValueRef Range Test MethodAnalysis TimePerformed AtPathologist SignatureHEPATITIS B SURF AG Ftc-WelrebnkOaa-Mcfzhhga38/26/2025 5:38 PM [facility] LABORATORYSpecimen (Source)Anatomical Location / LateralityCollection Method / VolumeCollection TimeReceived TimeBloodVenous blood / Cyrcdfa8712/06/2024 3:03 PM EDT12/06/2024 3:17 PM EDT Narrative Authorizing ProviderResult TypeResult StatusDanial Arzola MDLAB BLOOD ORDERABLES Final ResultPerforming OrganizationAddressCity/State/ZIP CodePhone Number [facility] [address] [place] [address], * Potassium (12/06/2024 3:03 PM EDT)ComponentValueRef RangeTest MethodAnalysis TimePerformed AtPathologist SignaturePOTASSIUM3.73.5 - 5.0 mmol/L12/06/2024 4:17 PM [facility] LABORATORYSpecimen (Source)Anatomical Location / LateralityCollection Method / VolumeCollection TimeReceived Time BloodVenous blood / Faehine7512/06/2024 3:03 PM EDT12/06/2024 3:17 PM EDT Narrative Authorizing ProviderResult TypeResult StatusPatricbeatriz Buckner MDLAB BLOOD ORDERABLESFinal ResultPerforming OrganizationAddressCity/State/ZIP CodePhone Number [facility] [address] [address] [place] [address], * Magnesium (12/06/2024 3:03 PM EDT) Only the most recent of2 resultswithin the time period is included. ComponentValueRef RangeTest MethodAnalysis TimePerformed AtPathologist Signature MAGNESIUM1.91.8 - 2.6 mg/dL12/06/2024 4:17 PM [facility] (Source)Anatomical Location / LateralityCollection Method / VolumeCollection TimeReceived TimeBloodVenous blood / Wjzfzcv3812/06/2024 3:03 PM EDT12/06/2024 3:17 PM EDT Narrative Authorizing ProviderResult TypeResult StatusAlbert Camden Aquino MDLAB BLOOD ORDERABLES Final ResultPerforming OrganizationAddressCity/State/ZIP CodePhone Number [facility] [address] [place] [address], * Extra Urine [place] (12/05/2024 8:38 PM EDT)ComponentValueRef RangeTest Method Analysis TimePerformed AtPathologist SignatureExtra TubeAuto Resulted 12/05/2024 10:01 PM [facility] (Source) Anatomical Location / LateralityCollection Method / VolumeCollection Time Received TimeUrineUrine / Fajwima3512/05/2024 8:38 PM EDT12/05/2024 9:04 PM EDT Narrative Authorizing ProviderResult TypeResult StatusPatricbeatriz NELSON ORDERABLES Final ResultPerforming OrganizationAddressCity/State/ZIP CodePhone Number [facility] [address] [place] [address], [place] [phone] * Extra Urine Culture (12/05/2024 8:38 PM EDT)ComponentValueRef RangeTest Method Analysis TimePerformed AtPathologist SignatureExtra TubeAuto Resulted 12/05/2024 10:01 PM [facility] (Source) Anatomical Location / LateralityCollection Method / VolumeCollection Time Received TimeUrineUrine / Mdnvcfi7412/05/2024 8:38 PM EDT12/05/2024 9:04 PM EDT Narrative Authorizing ProviderResult TypeResult StatusCjtricbeatriz NELSON ORDERABLES Final ResultPerforming OrganizationAddressty/State/ZIP CodePhone Number [facility] [address] [place] [address], [place] [phone] * Extra Urine (12/05/2024 8:38 PM EDT)ComponentValueRef RangeTest MethodAnalysis TimePerformed AtPathologist SignatureExtra TubeAuto Wawcrjkr07/25/2025 10:01 PM [facility]ATORYSpecimen (Source)Anatomical Location / LateralityCollection Method / VolumeCollection TimeReceived TimeUrineUrine / Wpijcwv1812/05/2024 8:38 PM EDT12/05/2024 9:04 PM EDT Narrative Authorizing ProviderResult TypeResult StatusCjtricbeatriz ENLSON ORDERABLES Final ResultPerforming OrganizationAddressCity/State/ZIP CodePhone Number [facility] [address] [place] [address], [place] [phone] * Central Line (12/05/2024 6:51 PM EDT) Anrdei Guzman MD - 12/05/2024 6:51 PM EDT Andrei [...] delayed treatment, alternative treatment, observation and referral [place] protocol: ??Procedure explained and questions answered to patient or proxy's satisfaction: yes ?Relevant documents present and verified: yes ?Test results available: yes ?Imaging studies available: yes ?Required blood products, implants, devices, and special equipment available: yes ?Site/side marked: yes ?Immediately prior to procedure, a time out was called: yes ?Patient identity confirmed: ??Arm band Pre-procedure details: ??Indication(s) comment: ??[place] for dialysis ??Hand hygiene: Hand hygiene performed [...] room for dialysis access. Authorizing ProviderResult TypeResult StatusAndrei Buckner MDPROCEDURE/MINOR SURGICAL ORDERABLESFinal Result * Light Blue Top (12/05/2024 12:45 PM EDT)ComponentValueRef RangeTest Method Analysis TimePerformed AtPathologist SignatureExtra TubeAuto Resulted 12/05/2024 2:02 PM [facility]YSpecimen (Source) Anatomical Location / LateralityCollection Method / VolumeCollection Time Received TimeBloodVenous blood / UnknownVenipuncture / Iuyxgmd4412/05/2024 12:45 PM EDT12/05/2024 12:54 PM EDT Narrative Authorizing ProviderResult TypeResult Aamir Buckner MDLAB BLOOD ORDERABLESFinal ResultPerforming OrganizationAddressCity/State/ZIP CodePhone Number [facility] [address] [place] [address], * (ABNORMAL) POCT Potassium, Glucose (12/02/2024 12:57 PM EDT) Only the most recent of2 resultswithin the time period is included. ComponentValueRef RangeTest MethodAnalysis TimePerformed AtPathologist Signature POC Potassium4.63.5 - 5.0 mmol/L12/02/2024 1:00 PM [facility] POC Vsvjcva445(H)65 - 99 mg/dL12/02/2024 1:00 PM [facility] Specimen (Source)Anatomical Location / LateralityCollection Method / Volume Collection TimeReceived Time12/02/2024 12:57 PM EDT12/02/2024 12:59 PM EDT Narrative Authorizing ProviderResult TypeResult StatusMoporfirio Dominguez MDPOINT OF CARE TEST ORDERABLESFinal ResultPerforming OrganizationAddressCity/State/ZIP CodePhone Number [facility] [address] [place] [address], [place] * (ABNORMAL) POCT Nursing Urine Macroscopic UA (11/29/2024 3:55 PM EDT)Component ValueRef RangeTest MethodAnalysis TimePerformed AtPathSan Joa[facility] Urine Specific Gravity1.0151.010, 1.015, 1.020, 1.4938811/29/2024 3:[address] [facility] Urine Leukocyte EsteraseTrace(A) Wjvluboa63/19/2025 3:45 [facility] Urine EoycmbqYkizonomEntrbqrj13/19/2025 3:45 PM [facility] Urine pH7.05.0, 6.0, 6.5, 7.0, 7.5, 8.0, 8.5, 5.5011/29/2024 3:45 PM [facility] Urine Protein>=300 mg/dL(A) Xwtuajuc50/19/2025 3:45 PM [facility] EzpqogoYszlbjrsMgauginu55/19/2025 3:45 PM [facility] Urine ZfrbojbGdejqupaLrsuucvl83/19/2025 3:45 PM [facility] Urine Urobilinogen0.2 E.U./dL11/29/2024 3:45 PM [facility] Urine BilirubinNegativeNegative 11/29/2024 3:45 PM [facility] Urine Blood/HGB Trace(A)Fxcqcbbz48/19/2025 3:[address] [facility] Specimen (Source)Anatomical Location / LateralityCollection Method / Volume Collection TimeReceived RymkOmjyb37/19/2025 3:55 PM EDT11/29/2024 3:45 PM EDT Narrative Authorizing ProviderResult TypeResult StatusSusan E Chehade MDPOINT OF CARE TEST ORDERABLESFinal ResultPerforming OrganizationAddressCity/State/ZIP CodePhone Number [facility] [address] [place] [address], [place] * (ABNORMAL) Blood gas, venous (11/29/2024 1:59 PM EDT)ComponentValueRef Range Test MethodAnalysis TimePerformed AtPathologist SignatureSample typeVENOUS 11/29/2024 2:15 PM [facility]ITALpH, Venous7.319(L) 7.320 - 7.6592411/29/2024 2:15 PM EDSAMARITAN HOSPITALpCO2, Bkhxwx73.835.0 - 50.0 mmHg11/29/2024 2:15 PM EDSAMARITAN HOSPITALpO2, Jknwno1171 - 50 mmHg11/29/2024 2:[address] [facility]ITALBase, Deficit-7.0(L)0.0 - 2.0 mmol/L11/29/2024 2:15 PM EDT [facility]HCO3, Xzsbta90.4(L)20.0 - 24.0 mmol/L 11/29/2024 2:[address] [facility]%O2 Saturation, Tnzftv27.0%11/29/2024 2:[address] [facility]PITALAllen's testN/A011/29/2024 2:15 PM [facility]ITALample siteN/A 11/29/2024 2:[address] [facility]OSPITALInsp. O2 conc.28% 11/29/2024 2:15 PM EDCOMMUNITY MEMORIAL HOSPITALource Of OxygenNC 11/29/2024 2:15 PM [facility] HOSPITALpecimen (Source) Anatomical Location / LateralityCollection Method / VolumeCollection Time Received TimevenousVenous blood / Mcpqgtq3511/29/2024 1:59 PM EDT11/29/2024 2:15 PM EDT Narrative Authorizing ProviderResult TypeResult StatusSurenetta DIEGO BLOOD ORDERABLESFinal ResultPerforming OrganizationAddressCity/State/ZIP CodePhone Number [facility] [address] [place] [address], [place] * (ABNORMAL) Troponin I, High Sensitivity 1 Hour (11/29/2024 1:44 PM EDT) ComponentValueRef RangeTest MethodAnalysis TimePerformed AtPathologist SignatureTROPONIN I, HIGH YMOYYUYJKVQ932(H)<16 ng/L11/29/2024 2:20 PM EDT [facility]ITALpecimen (Source)Anatomical Location / LateralityCollection Method / VolumeCollection TimeReceived TimeBloodVenous blood / UnknownVenipuncture / Ncbfndy7611/29/2024 1:44 PM EDT11/29/2024 1:50 PM EDT Narrative [facility] - 11/29/2024 2:20 PM EDT Elevations of hs-Troponin may be due to causes other than myocardial ischemia. Recommend serial hs-Troponin testing be performed. For the initial evaluation and management of chest pain patients, refer to the algorithms linked below. Emergency Patient: [email or web address] Inpatient: [email or web address] Authorizing ProviderResult TypeResult StatusSurenetta Patricio HILAB BLOOD ORDERABLESFinal ResultPerforming OrganizationAddressCity/State/ZIP CodePhone Number [facility] [address] [place] [address], * (ABNORMAL) Blood culture (11/29/2024 1:44 PM EDT)ComponentValueRef RangeTest MethodAnalysis TimePerformed AtPathologist SignatureCULTURE RESULTS Diphtheroids(A)12/02/2024 9:51 PM [facility]ORATORYGRAM STAINGram positive bacilli(AA)12/02/2024 9:51 PM [facility] LABORATORYComment:Diphtheroid like.Specimen (Source)Anatomical Location / LateralityCollection Method / VolumeCollection TimeReceived TimeBloodVenous blood / UnknownPort / Yvqwzdx2111/29/2024 1:44 PM EDT11/29/2024 1:52 PM EDT Narrative [facility] - 12/02/2024 9:51 PM EDT Possible Collection Contamination Unable to determine significance of positive culture when only one blood culture drawn. ??Contact microbiology if further information is required. Authorizing ProviderResult TypeResult StatusKate MCCLELLANDICROBIOLOGY - GENERAL ORDERABLESEdited Result - FinalPerforming OrganizationAddress City/State/ZIP CodePhone Number [facility] [address] [place] [address], [place] [phone] * ECG 12 lead (11/29/2024 1:35 PM EDT)Specimen (Source)Anatomical Location / LateralityCollection Method / VolumeCollection TimeReceived Time11/29/2024 1:35 PM EDT Narrative Authorizing ProviderResult TypeResult StatusKate Patricio MDECG ORDERABLES Final ResultPerforming OrganizationAddressty/State/ZIP CodePhone Number [facility] * (ABNORMAL) Troponin I, High Sensitivity 0 Hour (11/29/2024 12:29 PM EDT) ComponentValueRef RangeTest MethodAnalysis TimePerformed AtPathologist SignatureTROPONIN I, HIGH JBDCUMHVGTT671(H)<16 ng/L11/29/2024 1:01 PM EDT [facility]ITALpecimen (Source)Anatomical Location / LateralityCollection Method / VolumeCollection TimeReceived TimeBloodVenous blood / UnknownVenipuncture / Kmapdiq4811/29/2024 12:29 PM EDT11/29/2024 12:31 PM EDT Narrative Authorizing ProviderResult TypeResult StatusKate DIEGO BLOOD ORDERABLESFinal ResultPerforming OrganizationAddressSelect [facility]/State/ZIP CodePhone Number [facility] [address] [place] [address], [place] * (ABNORMAL) Procalcitonin (11/29/2024 12:29 PM EDT)ComponentValueRef RangeTest MethodAnalysis TimePerformed AtPathologist WekrwhbmzYNWVTKDOAOHTB43.93(H)<0.05 ng/mL11/29/2024 1:02 PM EDTPOhio State Harding Hospitalimen (Source)Anatomical Location / LateralityCollection Method / VolumeCollection TimeReceived TimeBloodVenous blood / UnknownVenipuncture / Bokqavm0711/29/2024 12:29 PM EDT11/29/2024 12:31 PM EDT Narrative [facility] - 11/29/2024 1:02 PM EDT <0.50 ng/mL - Low risk of severe sepsis and/or septic shock. <2.00 ng/mL - Recommend retesting within 6-24 hours. >2.00 ng/mL - High risk of sepsis and/or septic shock. Authorizing ProviderResult TypeResult StatusSusan Enedelia Patricio [place]ek[place]ak BLOOD ORDERABLESFinal ResultPerforming OrganizationAddressCity/State/ZIP CodePhone Number [address] [place] [address], [place] * Lactate w/ Reflex (11/29/2024 12:29 PM EDT)ComponentValueRef RangeTest Method Analysis TimePerformed AtPathologist SignatureLACTATE W/REFLEX1.00.4 - 2.0 mmol/L11/29/2024 12:50 PM EDTPSelect [facility] (Source)Anatomical Location / LateralityCollection Method / VolumeCollection TimeReceived TimeBloodVenous blood / UnknownVenipuncture / Xwdmltw4711/29/2024 12:29 PM EDT11/29/2024 12:31 PM EDT Narrative [facility] - 11/29/2024 12:50 PM EDT Result did not trigger repeat Lactate, re-order if needed. Authorizing ProviderResult TypeResult StatusSusabismark Patricio Peekapak BLOOD ORDERABLESFinal ResultPerforming OrganizationAddressCity/State/ZIP CodePhone Number [address] [place] [address], [place] * (ABNORMAL) APTT (11/29/2024 12:29 PM EDT)ComponentValueRef RangeTest Method Analysis TimePerformed AtPathologist MjqzmwmgeFOSS492(HH)26 - 37 sec11/29/2024 1:28 PM EDTPSelect [facility] (Source)Anatomical Location / LateralityCollection Method / VolumeCollection TimeReceived Time BloodVenous blood / UnknownVenipuncture / Hrfzvup7211/29/2024 12:29 PM EDT 11/29/2024 12:31 PM EDT Narrative Authorizing ProviderResult TypeResult StatusSurenetta Patricio MDLAB BLOOD ORDERABLESFinal ResultPerforming OrganizationAddressty/State/ZIP CodePhone Number [address] [place] [address], [place] * (ABNORMAL) B-type natriuretic peptide (11/29/2024 12:29 PM EDT)ComponentValue Ref RangeTest MethodAnalysis TimePerformed AtPathologist SignatureBNP2,478(H) <=100 pg/mL11/29/2024 1:22 PM EDTPPEOPLES HOSPITALpecimen (Source)Anatomical Location / LateralityCollection Method / VolumeCollection TimeReceived TimeBloodVenous blood / UnknownVenipuncture / Xdrjsfo6411/29/2024 12:29 PM EDT11/29/2024 12:31 PM EDT Narrative Authorizing ProviderResult TypeResult StatusSurenetta DIEGO BLOOD ORDERABLESFinal ResultPerforming OrganizationAddressCity/State/ZIP CodePhone Number [address] [place] [address], [place] * (ABNORMAL) Comprehensive metabolic panel (11/29/2024 12:29 PM EDT)Component ValueRef RangeTest MethodAnalysis TimePerformed AtPathologist SignatureSODIUM 128(L)134 - 146 mmol/L11/29/2024 1:11 PM EDTPREGENCY HOSPITAL CLEVELAND EASTPOTASSIUM5.1(H)3.5 - 5.0 mmol/L11/29/2024 1:11 PM EDTPREGENCY HOSPITAL CLEVELAND EASTCHLORIDE91(L)98 - 109 mmol/L11/29/2024 1:11 PM EDTPREGENCY HOSPITAL CLEVELAND EASTCARBON HLCCJZX61(L)22 - 32 mmol/L11/29/2024 1:11 PM EDTPREGENCY HOSPITAL CLEVELAND EASTANION GAP20(H)5 - 15 mmol/L11/29/2024 1:11 PM EDTPREGENCY HOSPITAL CLEVELAND EASTBLOOD UREA GBOXGWLG61(H)5 - 23 mg/dL11/29/2024 1:[address] [facility]ITALCREATININE16.46 (H)0.40 - 1.00 mg/dL11/29/2024 1:[address] [facility] Comment:METHOD TRACEABLE TO IDMS NKOWCHBMXZFSNPU105(H)65 - 99 mg/dL11/29/2024 1:[address] [facility]OSPITALCALCIUM8.4(L)8.5 - 10.5 mg/dL 11/29/2024 1:[address] [facility]PITALTOTAL PROTEIN7.16.0 - 8.0 g/dL11/29/2024 1:[address] [facility]OSPITALALBUMIN3.1(L) 3.2 - 5.3 g/dL11/29/2024 1:[address] [facility] ALKALINE WYTRJXXYOFV2584 - 130 U/L11/29/2024 1:[address] [facility]OS[facility]ITALAST95(H)<=41 U/L11/29/2024 1:[address] [facility]ITALALT63(H)<=31 U/L11/29/2024 1:[address] [facility]OSPITALBILIRUBIN,TOTAL0.70.3 - 1.2 mg/dL11/29/2024 1:11 PM EDT [facility] WESTEGFR Non-Race Dependent2(L)>=60 ml/min/1.73sq.m011/29/2024 1:[address] [facility] Comment: Reported eGFR is based on the CKD-EPI 2020 equation that does not use a race coefficient. Specimen (Source)Anatomical Location / LateralityCollection Method / Volume Collection TimeReceived TimeBloodVenous blood / UnknownVenipuncture / Unknown 11/29/2024 12:29 PM EDT11/29/2024 12:31 PM EDT Narrative Authorizing ProviderResult TypeResult StatusSurenetta DIEGO BLOOD ORDERABLESFinal ResultPerforming OrganizationAddressCity/State/ZIP CodePhone Number [facility] [address] [place] [address], * SARS/FLU A+B/RSV by NAAT/Molecular (M4RT Collection Tube) (11/29/2024 12:15 PM EDT)ComponentValueRef RangeTest MethodAnalysis TimePerformed AtPathologist SignatureFLU A KFWMyiipquzMjqdsjcg84/19/2025 1:31 PM EDTPSELECT [facility]ICAL [facility] HOSPITALFLU B UDXHpaazgbeZkpmhqmf34/19/2025 1:31 PM EDTPREGENCY HOSPITAL CLEVELAND EASTRSV BY BXRFbzjffjyNbbcfglv60/19/2025 1:31 PM EDT [facility]ITALARS COV 2 BY PCRNot DetectedNot Detected 11/29/2024 1:31 PM EDCOMMUNITY MEMORIAL HOSPITALpecimen (Source) Anatomical Location / LateralityCollection Method / VolumeCollection Time Received TimeSwabNasopharyngeal structure / Nrsggzj8611/29/2024 12:15 PM EDT 11/29/2024 12:32 PM EDT Narrative [facility] - 11/29/2024 1:31 PM EDT The Xpert [...] operators who are performing tests using either GeneBoracci DX or GeneKwaab systems and is limited to laboratories that [...] repeat. Fact Sheet for Healthcare Providers: ?? https://www.Perosphere.gov/media/605315/download ? Fact Sheet for Patients: ?? https://www.Perosphere.gov/media/185523/download ?? Authorizing ProviderResult TypeResult StatusSusan E Chehade MDMICROBIOLOGY - GENERAL ORDERABLESFinal ResultPerforming OrganizationAddressCity/State/ZIP Code Phone Number [place] [phone] [place] [address], * VASCULAR INVASIVE, PHARMACY TECHNICIAN INFUSION VENOUS INITIAL (11/23/2024 4:17 PM EDT)Anatomical RegionLateralityModalityX-Ray AngiographySpecimen (Source)Anatomical Location / LateralityCollection Method / VolumeCollection TimeReceived Time Narrative 11/23/2024 4:24 PM EDT Procedure Details Patient Name: Kimberly Butler Medical Record: [id number] Date of Operation: 11/23/2024 Pre-op diagnosis:?End-stage renal disease. Post-op diagnosis:?Same. Procedure:? Exchange of right chest tunneled dialysis catheter with 23 cm tip to cuff catheter Central venogram through right tunneled catheter SVC and right atrium Balloon angioplasty of fibrin sheath in the SVC right atrium with 8 x 40 mm followed by 10 x 40 mm mustang balloon Surgeon: John Calle MD Primary Set Up Mechanic Heading Machines:??None Anesthesia:?Local with ??Lidocaine 1%, moderate sedation for [...] Vascular Surgery Authorizing ProviderResult TypeResult StatusBreregina Calle [facility] CARDIAC CATH ORDERABLESEdited Result - Final * [...] 12:10 PM Authorizing ProviderResult TypeResult StatusOneida Kan TOOLING INSPECTOR-CNPIMG MRI ORDERABLESFinal Result from Last 3 Months Insurance Advance Directives TypeDate RecordedPatient RepresentativeExplanationLiving Will10/11/2024 8:38 AM Durable Power of Attorney10/11/2024 8:36 AM * Full Code (Latest Code Status on File) Date ActivatedDate InactivatedComments12/05/2024 5:35 PM12/11/2024 3:39 AM * Full Code Date ActivatedDate InactivatedComments09/30/2024 1:03 PM10/08/2024 11:16 AM * Full Code Date ActivatedDate InactivatedComments06/19/2024 3:19 AM06/27/2024 3:03 AM * Full Code Date ActivatedDate InactivatedComments10/10/2023 1:23 AM10/13/2023 8:23 PM Care Teams Team MemberRelationshipSpecialtyStart DateEnd Date Marc[place] [address] [place] [address] [facility]/09/23
--- OUTSIDE RECORDS SUMMARY | 2025-01-31 12:03 | XMS_ITS | Encounter Summary ---
Author Organization [facility] tem Address [facility] [id number] [place] [address] Care Team Providers Care Ash Worker Name Role Phone Marciano Diallo MD Primary Care Provider [phone] Encounter Details DateTypeDepartmentCare Team (Latest Contact Info)Ertkobcxuxi31/20/2025Results Follow-Up [facility] Emergency [address] [place] [phone] Elaine De La Fuenet, RN Blood culture Social History Tobacco UseTypesPacks/DayYears UsedDateSmoking Tobacco: Every DayCigarettes0.5 39.8Started: 1986Passive Smoke Exposure: CurrentSmokeless Tobacco: Never Comments:09/30/24- smokes charissa roximately 6 cigarettes per day Alcohol UseStandard Drinks/WeekCommentsNever0 (1 standard drink = 0.6 oz pure alcohol)[facility] UtilitiesAnswerDate RecordedIn the past 12 months has the Programeter, gas, oil, or water [employer] threatened to shut off services in your home?No 12/06/2024UDIT-CAnswerDate RecordedQ1: How often do you have a drink containing alcohol?Never12/06/2024Q2: How many drinks containing alcohol do you have on a typical day when you are drinking?Patient does not drink12/06/2024Q3: How often do you have six or more drinks on one occasion?Never12/06/2024PHQ-2AnswerDate RecordedTotal Mzsov016PRAPARE - TransportationAnswerDate RecordedIn the past 12 months, [...] InformationValueDate RecordedSex Assigned at BirthNot on fileLegal LyhZkyvyf42/28/2024 5:01 PM EDT Gender IdentityNot on fileSexual OrientationNot on filedocumented as of this encounter Functional Status * QuestionAnswerDate of AssessmentAuthorFunctional StatusMaximum assistance 12/06/2024 1:42 PM Rupinder Campa LSW * AUDIT-C ScoreAnswerDate of GdnbsblpbxFgurtl315/26/2025 1:34 PM Betty Gomes RN * QuestionAnswerDate of AssessmentAuthorQ1: How often do you have a drink containing alcohol?Never12/06/2024 1:34 PM Betty Gomes RNQ2: How many drinks containing alcohol do you have on a typical day when you are drinking?Patient does not drink12/06/2024 1:34 PM Betty Gomes RN Q3: How often do you have six or more drinks on one occasion?Never12/06/2024 1:34 PM Betty Gomes RN documented as of this encounter Plan of Treatment Not on file documented as of this encounter Goals GoalPatient Goal TypeAssociated ProblemsRecent ProgressPatient-Stated?Author LTC return Rupinder Damon LSW Note: Evaluation of progress towards goal: progressing towards dc documented as of this encounter Visit Diagnoses Not on filedocumented in this encounter Additional Health Concerns AssessmentNoted TimePHQ-9 Depression Total Score: 7:08 PM EDT documented as of this encounter Care Teams Team MemberRelationshipSpecialtyStart DateEnd Date Marciano Diallo MD [facility] [address] PCP - GeneralFamily Medicine10/09/23documented as of this encounter
--- OUTSIDE RECORDS SUMMARY | 2025-01-31 12:03 | XMS_ITS | Continuity of Care Document ---
Author Organization [facility] Address [address] [place] [id number] Phone [phone] Care Team Providers Care Photographer News Name Role Phone Nolberto Garland MD Care Team Information Receiv er [phone] Assessments Date Code Description Provider 06/10/2023 I10 Essential (primary) hyperten myra Fabiola Patriceadareji M.D. 06/10/2023 N18.6 End stage renal disease Swap na Patriceadana M.D. 06/10/2023 E11.22 Type 2 diabetes mellitus with diabetic chronic kidney disease Fabiolareji Lynch M.D. 06/10/2023 D63.1 Anemia in chronic kidney dis ease Fabiola Patriceadana M.D. 06/09/2023 I10 Essential (primary) hyperten EMILY Herbert 06/09/2023 N18.6 End stage renal disease EMILY Benz 06/09/2023 E11.22 Type 2 diabetes mellitus with diabetic chronic kidney disease EMILY Ray 06/09/2023 D63.1 Anemia in chronic kidney dis ease EMILY Ray 06/08/2023 I10 Essential (primary) hyperten myra Fabiola Patriceadana M.D. 06/08/2023 N18.6 End stage renal disease Swap na Patriceadana M.D. 06/08/2023 E11.22 Type 2 diabetes mellitus with diabetic chronic kidney disease Fabiolareji Lynch M.D. 06/08/2023 D63.1 Anemia in chronic kidney dis ease Fabiola Syed Pepe 06/05/2023 I10 Essential (primary) hyperten myra Nieto MD 06/05/2023 N18.6 End stage renal disease Isabell Nieto MD 06/05/2023 E11.22 Type 2 diabetes mellitus with diabetic chronic kidney disease Kishor Nieto MD 06/05/2023 D63.1 Anemia in chronic kidney dis joaquín Nieto MD 06/04/2023 I10 Essential (primary) hyperten myra Nieto MD 06/04/2023 N18.6 End stage renal disease Isabell Nieto MD 06/04/2023 E11.22 Type 2 diabetes mellitus with diabetic chronic kidney disease Kishor Nieto MD 06/04/2023 D63.1 Anemia in chronic kidney dis joaquín Nieto MD 06/03/2023 I10 Essential (primary) rafael Nieto MD 06/03/2023 N18.6 End stage renal disease Isabell Nieto MD 06/03/2023 E11.22 Type 2 diabetes mellitus with diabetic chronic kidney disease Kishor Nieto MD 06/03/2023 D63.1 Anemia in chronic kidney dis joaquín Nieto MD 05/11/2023 N17.9 Acute kidney failure, unspec ified Scott Martin M.D. 05/11/2023 N18.5 Chronic kidney disease, stag e 5 Scott Martin M.D. 05/11/2023 D63.1 Anemia in chronic kidney dis ease Scott Martin M.D. 05/11/2023 N25.81 Secondary hyperp arathyroidism of renal origin Scott Martin M.D. 05/08/2023 N17.9 Acute kidney failure, unspec ified Fabiola Lynch M.D. 05/08/2023 N18.5 Chronic kidney disease, stag e 5 Fabiola Lynch M.D. 05/08/2023 D63.1 Anemia in chronic kidney dis ease Fabiola Lynch M.D. 05/08/2023 N25.81 Secondary hyperp arathyroidism of renal origin Fabiola Lynch M.D. 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 05/06/2023 N18.5 Chronic kidney disease, stag e 5 Fabiola Kamadana M.D. 05/06/2023 D63.1 Anemia in chronic kidney dis ease Fabiola Kamadana M.D. 05/06/2023 N25.81 Secondary hyperp arathyroidism of renal origin Fabiola Kamadana M.D. 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 05/04/2023 N18.5 Chronic kidney disease, stag e 5 Fabiola Kamadana M.D. 05/04/2023 D63.1 Anemia in chronic kidney dis ease Fabiola Kamadana M.D. 05/04/2023 N25.81 Secondary hyperp arathyroidism of renal origin Fabiola Kamadana M.D. 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, stag e 5 EMILY Ray 04/30/2023 D63.1 Anemia in chronic kidney dis ease ZACARIAS [facility] 04/30/2023 N25.81 Secondary hyperp arathyroidism of renal origin EMILY Ray 04/29/2023 N17.9 Acute kidney failure, unspec ified Kishor Nieto MD 04/29/2023 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 04/24/2023 N18.5 Chronic kidney disease, staash fernandez 5 Scott Martin M.D. 04/24/2023 D63.1 Anemia in chronic kidney dis joaquín Martin M.D. 04/24/2023 N25.81 Secondary hyperp arathyroidism of renal origin Scott Martin M.D. 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, stag e 3b Kishor Nieto MD 03/19/2022 E87.20 Acidosis, unspecified Kishor Nieto MD 03/19/2022 I10 Essential (primary) hyperten myra Kishor Nieto MD 03/18/2022 N17.9 Acute kidney failure, unspec ified Kishor Nieto MD 03/18/2022 N18.32 Chronic kidney disease, dmitriy Nieto MD 03/18/2022 E87.20 Acidosis, unspecified Kishor Nieto MD 03/18/2022 I10 Essential (primary) rafael Nieto MD 03/17/2022 N17.9 Acute kidney failure, unspec ified Kishor Nieto MD 03/17/2022 N18.32 Chronic kidney disease, dmitriy Nieto MD 03/17/2022 E87.20 Acidosis, unspecified Kishor Nieto MD 03/17/2022 I10 Essential (primary) rafael Nieto MD 03/14/2022 N17.9 Acute kidney failure, unspec ified Fabiola Lynch M.D. 03/14/2022 N18.32 Chronic kidney disease, dmitriy Lynch M.D. 03/14/2022 E87.20 Acidosis, unspecified Fabiola Xie.DHaily 03/14/2022 I10 Essential (primary) hyperten myra Lynch M.D.
--- OUTSIDE RECORDS SUMMARY | 2025-01-31 12:03 | XMS_ITS | Patient Health Record ---
Author Organization [facility] Address [address] [place] [address] [address] [place] [address] Care Team Providers Care Hide Handler Name Role Phone JUANA AVALOS Unavailable [phone] ELA HOBBS Unavailable [phone] TONY HEAD Unavailable [phone] RANDELL PACHECO Unavailable [phone] Reason For Referral No Information Social History Tobacco Use: Social History Observation Description Date Details (start date - stop date) Current Smoker NA - NA Tobacco Control (Standard) Question Answer Notes Tobacco use: Current smoker Problems Problem Type SNOMED Code ICD Code Onset Dates Problem Status W/U Status Risk Notes Problem Obstructive sleep ap pacheco syndrome (disorder) (82762337) Obstructive sleep apnea (adult) (pediatric) (G47.33) ActiveconfirmedProblemPulmonary hypertension (47738231)Pulmonary hypertension (I27.20)ActiveconfirmedProblemAsthma (464565188)Asthma (J45.909)Activeconfirmed ProblemChronic diastolic heart failure (123700915)Chronic diastolic heart failure (I50.32)ActiveconfirmedProblemChronic respiratory failure (63011841) Chronic hypoxic respiratory failure (J96.11)Activeconfirmed Encounters Encounter Location Date Provider Diagnosis [place] [id number] 10/30/2024 JUANA AVALOS Asthma J45.909 ; Chronic hypoxic respiratory failure J96.11 ; Chronic diastolic heart failure I50.32 ; Pulmonary hypertension I27.20 ; Tobacco use Z72.0 and Obstructive sleep apnea (adult) (pediatric) G47.[address] [id number] 01/31/2025 ELA HOBBS Asthma J45.909 ; Chronic hypoxic respiratory failure J96.11 ; Chronic diastolic heart failure I50.32 ; Pulmonary hypertension I27.20 ; Tobacco use Z72.0 and Obstructive sleep apnea (adult) (pediatric) G47.33 [place] [address] [id number] 06/16/2024 [facility] Acute respiratory failure with hypoxia J96.01 ; Tobacco use Z72.0 and Obstructive sleep apnea (adult) (pediatric) G47.33 [place] [address] [id number] 07/16/2024 JUANA AVALOS Acute respiratory failure with hypoxia J96.01 ; Tobacco use Z72.0 and Obstructive sleep apnea (adult) (pediatric) G47.33 [place] [address] [id number] 07/19/2024 [facility] Acute respiratory failure with hypoxia J96.01 ; Tobacco use Z72.0 and Obstructive sleep apnea (adult) (pediatric) G47.33 [place] [address] [id number] 07/21/2024 [facility] Acute respiratory failure with hypoxia J96.01 ; Tobacco use Z72.0 and Obstructive sleep apnea (adult) (pediatric) G47.33 [place] [address] [id number] 07/23/2024 JUANA AVALOS Acute respiratory failure with hypoxia J96.01 ; Tobacco use Z72.0 and Obstructive sleep apnea (adult) (pediatric) G47.33 [place] [address] [id number] 07/26/2024 [facility] Acute respiratory failure with hypoxia J96.01 ; Asthma J45.909 ; Chronic diastolic heart failure I50.32 ; Pulmonary hypertension I27.20 ; Tobacco use Z72.0 and Obstructive sleep apnea (adult) (pediatric) G47.33 [place] [address] [id number] 2024 [facility] Acute respiratory failure with hypoxia J96.01 ; Asthma J45.909 ; Chronic diastolic heart failure I50.32 ; Pulmonary hypertension I27.20 ; Tobacco use Z72.0 and Obstructive sleep apnea (adult) (pediatric) G47.33 [place] [address] [id number] 07/30/2024 JUANA AVALOS Acute respiratory failure with hypoxia J96.01 ; Asthma J45.909 ; Chronic diastolic heart failure I50.32 ; Pulmonary hypertension I27.20 ; Tobacco use Z72.0 and Obstructive sleep apnea (adult) (pediatric) G47.33 [place] [address] [id number] 08/02/2024 [facility] Acute respiratory failure with hypoxia J96.01 ; Asthma J45.909 ; Chronic diastolic heart failure I50.32 ; Pulmonary hypertension I27.20 ; Tobacco use Z72.0 and Obstructive sleep apnea (adult) (pediatric) G47.33 [place] [address] [id number] 08/04/2024 [facility] Acute respiratory failure with hypoxia J96.01 ; Asthma J45.909 ; Chronic diastolic heart failure I50.32 ; Pulmonary hypertension I27.20 ; Tobacco use Z72.0 and Obstructive sleep apnea (adult) (pediatric) G47.33 [place] [address] [id number] 08/06/2024 [facility] Acute respiratory failure with hypoxia J96.01 ; Asthma J45.909 ; Chronic diastolic heart failure I50.32 ; Pulmonary hypertension I27.20 ; Tobacco use Z72.0 and Obstructive sleep apnea (adult) (pediatric) G47.33 [place] [address] [id number] 08/09/2024 [facility] Acute respiratory failure with hypoxia J96.01 ; Asthma J45.909 ; Chronic diastolic heart failure I50.32 ; Pulmonary hypertension I27.20 ; Tobacco use Z72.0 and Obstructive sleep apnea (adult) (pediatric) G47.33 [place] [address] [id number] 08/11/2024 [facility] Acute respiratory failure with hypoxia J96.01 ; Asthma J45.909 ; Chronic diastolic heart failure I50.32 ; Pulmonary hypertension I27.20 ; Tobacco use Z72.0 and Obstructive sleep apnea (adult) (pediatric) G47.33 [place] [address] [id number] 08/13/2024 [facility] Acute respiratory failure with hypoxia J96.01 ; Asthma J45.909 ; Chronic diastolic heart failure I50.32 ; Pulmonary hypertension I27.20 ; Tobacco use Z72.0 and Obstructive sleep apnea (adult) (pediatric) G47.33 [place] [address] [id number] 08/16/2024 [facility] Acute respiratory failure with hypoxia J96.01 ; Asthma J45.909 ; Chronic diastolic heart failure I50.32 ; Pulmonary hypertension I27.20 ; Tobacco use Z72.0 and Obstructive sleep apnea (adult) (pediatric) G47.[address] [id number] 08/18/2024 [facility] Acute respiratory failure with hypoxia J96.01 ; Asthma J45.909 ; Chronic diastolic heart failure I50.32 ; Pulmonary hypertension I27.20 ; Tobacco use Z72.0 and Obstructive sleep apnea (adult) (pediatric) G47.[address] [id number] 08/20/2024 JUANA AVALOS Acute respiratory failure with hypoxia J96.01 ; Asthma J45.909 ; Chronic diastolic heart failure I50.32 ; Pulmonary hypertension I27.20 ; Tobacco use Z72.0 and Obstructive sleep apnea (adult) (pediatric) G47.[address] [id number] 08/23/2024 [facility] Acute respiratory failure with hypoxia J96.01 ; Asthma J45.909 ; Chronic diastolic heart failure I50.32 ; Pulmonary hypertension I27.20 ; Tobacco use Z72.0 and Obstructive sleep apnea (adult) (pediatric) G47.[address] [id number] 08/25/2024 [facility] Acute respiratory failure with hypoxia J96.01 ; Asthma J45.909 ; Chronic diastolic heart failure I50.32 ; Pulmonary hypertension I27.20 ; Tobacco use Z72.0 and Obstructive sleep apnea (adult) (pediatric) G47.[address] [id number] 08/27/2024 JUANA AVALOS Acute respiratory failure with hypoxia J96.01 ; Asthma J45.909 ; Chronic diastolic heart failure I50.32 ; Pulmonary hypertension I27.20 ; Tobacco use Z72.0 and Obstructive sleep apnea (adult) (pediatric) G47.33 [place] [address] [id number] 08/30/2024 [facility] Acute respiratory failure with hypoxia J96.01 ; Asthma J45.909 ; Chronic diastolic heart failure I50.32 ; Pulmonary hypertension I27.20 ; Tobacco use Z72.0 and Obstructive sleep apnea (adult) (pediatric) G47.33 [place] [address] [id number] 09/01/2024 [facility] Acute respiratory failure with hypoxia J96.01 ; Asthma J45.909 ; Chronic diastolic heart failure I50.32 ; Pulmonary hypertension I27.20 ; Tobacco use Z72.0 and Obstructive sleep apnea (adult) (pediatric) G47.33 [place] [address] [id number] 09/05/2024 JUANA AVALOS Acute respiratory failure with hypoxia J96.01 ; Asthma J45.909 ; Chronic diastolic heart failure I50.32 ; Pulmonary hypertension I27.20 ; Tobacco use Z72.0 and Obstructive sleep apnea (adult) (pediatric) G47.[address] [place] [address] [place] [address] [id number] 09/11/2024 JUANA AVALOS Acute respiratory failure with hypoxia J96.01 ; Asthma J45.909 ; Chronic diastolic heart failure I50.32 ; Pulmonary hypertension I27.20 ; Tobacco use Z72.0 and Obstructive sleep apnea (adult) (pediatric) G47.33 [place] [address] [id number] 09/13/2024 [facility] Asthma J45.909 ; Chronic hypoxic respiratory failure J96.11 ; Chronic diastolic heart failure I50.32 ; Pulmonary hypertension I27.20 ; Tobacco use Z72.0 and Obstructive sleep apnea (adult) (pediatric) G47.[address] [place] [address] [place] [address] [id number] 09/18/2024 JUANA AVALOS Asthma J45.909 ; Chronic hypoxic respiratory failure J96.11 ; Chronic diastolic heart failure I50.32 ; Pulmonary hypertension I27.20 ; Tobacco use Z72.0 and Obstructive sleep apnea (adult) (pediatric) G47.[address] [id number] 10/08/2024 JUANA ROBBIE Asthma J45.909 ; Chronic hypoxic respiratory failure J96.11 ; Chronic diastolic heart failure I50.32 ; Pulmonary hypertension I27.20 ; Tobacco use Z72.0 and Obstructive sleep apnea (adult) (pediatric) G47.[address] [id number] 10/21/2024 JUANA ROBBIE Asthma J45.909 ; Chronic hypoxic respiratory failure J96.11 ; Chronic diastolic heart failure I50.32 ; Pulmonary hypertension I27.20 ; Tobacco use Z72.0 and Obstructive sleep apnea (adult) (pediatric) G47.[address] [id number] 11/08/2024 ELA HOBBS Asthma J45.909 ; Chronic hypoxic respiratory failure J96.11 ; Chronic diastolic heart failure I50.32 ; Pulmonary hypertension I27.20 ; Tobacco use Z72.0 and Obstructive sleep apnea (adult) (pediatric) G47.[address] [id number] 11/10/2024 RANDELL SELL Asthma J45.909 ; Chronic hypoxic respiratory failure J96.11 ; Chronic diastolic heart failure I50.32 ; Pulmonary hypertension I27.20 ; Tobacco use Z72.0 and Obstructive sleep apnea (adult) (pediatric) G47.[address] [id number] 11/13/2024 JUANA ROBBIE Asthma J45.909 ; Chronic hypoxic respiratory failure J96.11 ; Chronic diastolic heart failure I50.32 ; Pulmonary hypertension I27.20 ; Tobacco use Z72.0 and Obstructive sleep apnea (adult) (pediatric) G47.[address] [id number] 11/15/2024 RANDELL SELL Asthma J45.909 ; Chronic hypoxic respiratory failure J96.11 ; Chronic diastolic heart failure I50.32 ; Pulmonary hypertension I27.20 ; Tobacco use Z72.0 and Obstructive sleep apnea (adult) (pediatric) G47.33 [place] [address] [id number] 11/17/2024 RANDELL PACHECO Asthma J45.909 ; Chronic hypoxic respiratory failure J96.11 ; Chronic diastolic heart failure I50.32 ; Pulmonary hypertension I27.20 ; Tobacco use Z72.0 and Obstructive sleep apnea (adult) (pediatric) G47.[address] [id number] 11/20/2024 JUANA ROBBIE Asthma J45.909 ; Chronic hypoxic respiratory failure J96.11 ; Chronic diastolic heart failure I50.32 ; Pulmonary hypertension I27.20 ; Tobacco use Z72.0 and Obstructive sleep apnea (adult) (pediatric) G47.[address] [id number] 11/22/2024 LEANNAE HOBBS Asthma J45.909 ; Chronic hypoxic respiratory failure J96.11 ; Chronic diastolic heart failure I50.32 ; Pulmonary hypertension I27.20 ; Tobacco use Z72.0 and Obstructive sleep apnea (adult) (pediatric) G47.[address] [place] [address] [place] [address] [id number] 11/24/2024 LEANNAE HOBBS Asthma J45.909 ; Chronic hypoxic respiratory failure J96.11 ; Chronic diastolic heart failure I50.32 ; Pulmonary hypertension I27.20 ; Tobacco use Z72.0 and Obstructive sleep apnea (adult) (pediatric) G47.33 [place] [address] [id number] 11/27/2024 JUANA ROBBIE Asthma J45.909 ; Chronic hypoxic respiratory failure J96.11 ; Chronic diastolic heart failure I50.32 ; Pulmonary hypertension I27.20 ; Tobacco use Z72.0 and Obstructive sleep apnea (adult) (pediatric) G47.[address] [id number] 11/29/2024 LEANNAE HOBBS Asthma J45.909 ; Chronic hypoxic respiratory failure J96.11 ; Chronic diastolic heart failure I50.32 ; Pulmonary hypertension I27.20 ; Tobacco use Z72.0 and Obstructive sleep apnea (adult) (pediatric) G47.33 [place] [address] [facility] [address] [place], [place] [id number] 12/01/2024 RANDELL SELL Asthma J45.909 ; Chronic hypoxic respiratory failure J96.11 ; Chronic diastolic heart failure I50.32 ; Pulmonary hypertension I27.20 ; Tobacco use Z72.0 and Obstructive sleep apnea (adult) (pediatric) G47.33 [place] [address] [id number] 12/04/2024 JUANA ROBBIE Asthma J45.909 ; Chronic hypoxic respiratory failure J96.11 ; Chronic diastolic heart failure I50.32 ; Pulmonary hypertension I27.20 ; Tobacco use Z72.0 and Obstructive sleep apnea (adult) (pediatric) G47.33 [place] [address] [id number] 12/11/2024 KELCEE HOBBS Asthma J45.909 ; Chronic hypoxic respiratory failure J96.11 ; Chronic diastolic heart failure I50.32 ; Pulmonary hypertension I27.20 ; Tobacco use Z72.0 and Obstructive sleep apnea (adult) (pediatric) G47.33 [place] [address] [id number] 12/13/2024 KELCEE HOBBS Asthma J45.909 ; Chronic hypoxic respiratory failure J96.11 ; Chronic diastolic heart failure I50.32 ; Pulmonary hypertension I27.20 ; Tobacco use Z72.0 and Obstructive sleep apnea (adult) (pediatric) G47.33 [place] [address] [id number] 12/15/2024 RANDELL SELL Asthma J45.909 ; Chronic hypoxic respiratory failure J96.11 ; Chronic diastolic heart failure I50.32 ; Pulmonary hypertension I27.20 ; Tobacco use Z72.0 and Obstructive sleep apnea (adult) (pediatric) G47.33 [place] [address] [id number] 12/17/2024 JUANA ROBBIE Asthma J45.909 ; Chronic hypoxic respiratory failure J96.11 ; Chronic diastolic heart failure I50.32 ; Pulmonary hypertension I27.20 ; Tobacco use Z72.0 and Obstructive sleep apnea (adult) (pediatric) G47.33 [place] [address] [id number] 12/20/2024 KELE HOBBS Asthma J45.909 ; Chronic hypoxic respiratory failure J96.11 ; Chronic diastolic heart failure I50.32 ; Pulmonary hypertension I27.20 ; Tobacco use Z72.0 and Obstructive sleep apnea (adult) (pediatric) G47.33 [place] [address] [id number] 12/22/2024 RANDELL SELL Asthma J45.909 ; Chronic hypoxic respiratory failure J96.11 ; Chronic diastolic heart failure I50.32 ; Pulmonary hypertension I27.20 ; Tobacco use Z72.0 and Obstructive sleep apnea (adult) (pediatric) G47.33 [place] [address] [id number] 12/24/2024 JUANA ROBBIE Asthma J45.909 ; Chronic hypoxic respiratory failure J96.11 ; Chronic diastolic heart failure I50.32 ; Pulmonary hypertension I27.20 ; Tobacco use Z72.0 and Obstructive sleep apnea (adult) (pediatric) G47.33 [place] [address] [id number] 12/27/2024 KELE HOBBS Asthma J45.909 ; Chronic hypoxic respiratory failure J96.11 ; Chronic diastolic heart failure I50.32 ; Pulmonary hypertension I27.20 ; Tobacco use Z72.0 and Obstructive sleep apnea (adult) (pediatric) G47.33 [place] [address] [id number] 12/29/2024 RANDELL SELL Asthma J45.909 ; Chronic hypoxic respiratory failure J96.11 ; Chronic diastolic heart failure I50.32 ; Pulmonary hypertension I27.20 ; Tobacco use Z72.0 and Obstructive sleep apnea (adult) (pediatric) G47.33 [place] [address] [id number] 12/31/2024 KELE HOBBS Asthma J45.909 ; Chronic hypoxic respiratory failure J96.11 ; Chronic diastolic heart failure I50.32 ; Pulmonary hypertension I27.20 ; Tobacco use Z72.0 and Obstructive sleep apnea (adult) (pediatric) G47.33 [place] [address] [id number] 01/03/2025 KELE HOBBS Asthma J45.909 ; Chronic hypoxic respiratory failure J96.11 ; Chronic diastolic heart failure I50.32 ; Pulmonary hypertension I27.20 ; Tobacco use Z72.0 and Obstructive sleep apnea (adult) (pediatric) G47.33 [place] [address] [id number] 01/05/2025 RANDELL SELL Asthma J45.909 ; Chronic hypoxic respiratory failure J96.11 ; Chronic diastolic heart failure I50.32 ; Pulmonary hypertension I27.20 ; Tobacco use Z72.0 and Obstructive sleep apnea (adult) (pediatric) G47.33 [place] [address] [id number] 01/07/2025 JUANA ROBBIE Asthma J45.909 ; Chronic hypoxic respiratory failure J96.11 ; Chronic diastolic heart failure I50.32 ; Pulmonary hypertension I27.20 ; Tobacco use Z72.0 and Obstructive sleep apnea (adult) (pediatric) G47.33 [place] [address] [id number] 01/10/2025 KELE HOBBS Asthma J45.909 ; Chronic hypoxic respiratory failure J96.11 ; Chronic diastolic heart failure I50.32 ; Pulmonary hypertension I27.20 ; Tobacco use Z72.0 and Obstructive sleep apnea (adult) (pediatric) G47.33 [place] [address] [id number] 01/12/2025 RANDELL SELL Asthma J45.909 ; Chronic hypoxic respiratory failure J96.11 ; Chronic diastolic heart failure I50.32 ; Pulmonary hypertension I27.20 ; Tobacco use Z72.0 and Obstructive sleep apnea (adult) (pediatric) G47.33 [place] [address] [id number] 01/14/2025 KELE HOBBS Asthma J45.909 ; Chronic hypoxic respiratory failure J96.11 ; Chronic diastolic heart failure I50.32 ; Pulmonary hypertension I27.20 ; Tobacco use Z72.0 and Obstructive sleep apnea (adult) (pediatric) G47.33 [place] [address] [id number] 01/17/2025 KELE HOBBS Asthma J45.909 ; Chronic hypoxic respiratory failure J96.11 ; Chronic diastolic heart failure I50.32 ; Pulmonary hypertension I27.20 ; Tobacco use Z72.0 and Obstructive sleep apnea (adult) (pediatric) G47.[address] [id number] 01/19/2025 RANDELL SELL Asthma J45.909 ; Chronic hypoxic respiratory failure J96.11 ; Chronic diastolic heart failure I50.32 ; Pulmonary hypertension I27.20 ; Tobacco use Z72.0 and Obstructive sleep apnea (adult) (pediatric) G47.[address] [id number] 01/22/2025 JUANA AVALOS Asthma J45.909 ; Chronic hypoxic respiratory failure J96.11 ; Chronic diastolic heart failure I50.32 ; Pulmonary hypertension I27.20 ; Tobacco use Z72.0 and Obstructive sleep apnea (adult) (pediatric) G47.[address] [id number] 01/24/2025 ELA HOBBS Asthma J45.909 ; Chronic hypoxic respiratory failure J96.11 ; Chronic diastolic heart failure I50.32 ; Pulmonary hypertension I27.20 ; Tobacco use Z72.0 and Obstructive sleep apnea (adult) (pediatric) G47.[address] [id number] 01/26/2025 RANDELL SELL Asthma J45.909 ; Chronic hypoxic respiratory failure J96.11 ; Chronic diastolic heart failure I50.32 ; Pulmonary hypertension I27.20 ; Tobacco use Z72.0 and Obstructive sleep apnea (adult) (pediatric) G47.[address] [id number] 01/29/2025 JUANA AVALOS Asthma J45.909 ; Chronic hypoxic respiratory failure J96.11 ; Chronic diastolic heart failure I50.32 ; Pulmonary hypertension I27.20 ; Tobacco use Z72.0 and Obstructive sleep apnea (adult) (pediatric) G47.33 Assessments Encounter Date Diagnosis (ICD Code) Assessment Notes Treatment Notes Treatment Clinical Notes Section Notes 06/16/2024 Acute respiratory failure with h ypoxia (ICD-10 - J96.01) 06/16/2024Tobacco use (ICD-10 - Z72.0)5Acute respiratory failure with hypoxia (ICD-10 - J96.01)5Acute respiratory failure with hypoxia (ICD- 10 - J96.01)5Acute respiratory failure with hypoxia (ICD-10 - J96.01) 5Acute respiratory failure with hypoxia (ICD-10 - J96.01)07/26/2024 Acute respiratory failure with hypoxia (ICD-10 - J96.01)07/26/2024sthma (ICD-10 - J45.909)5Acute respiratory failure with hypoxia (ICD-10 - J96.01) 5Acute respiratory failure with hypoxia (ICD-10 - J96.01)08/02/2024 Acute respiratory failure with hypoxia (ICD-10 - J96.01)08/04/2024ute respiratory failure with hypoxia (ICD-10 - J96.01)08/06/2024ute respiratory failure with hypoxia (ICD-10 - J96.01)5Acute respiratory failure with hypoxia (ICD-10 - J96.01)5Acute respiratory failure with hypoxia (ICD- 10 - J96.01)5Acute respiratory failure with hypoxia (ICD-10 - J96.01) 08/16/2024ute respiratory failure with hypoxia (ICD-10 - J96.01)08/16/2024 Asthma (ICD-10 - J45.909)5Acute respiratory failure with hypoxia (ICD- 10 - J96.01)5Acute respiratory failure with hypoxia (ICD-10 - J96.01) 5Acute respiratory failure with hypoxia (ICD-10 - J96.01)08/25/2024 Acute respiratory failure with hypoxia (ICD-10 - J96.01)5Acute respiratory failure with hypoxia (ICD-10 - J96.01)5Acute respiratory failure with hypoxia (ICD-10 - J96.01)5Acute respiratory failure with hypoxia (ICD-10 - J96.01)5Acute respiratory failure with hypoxia (ICD- 10 - J96.01)5Acute respiratory failure with hypoxia (ICD-10 - J96.01) 5Asthma (ICD-10 - J45.909)5Chronic hypoxic respiratory failure (ICD-10 - J96.11)5Asthma (ICD-10 - J45.909)5Asthma (ICD-10 - J45.909)5Asthma (ICD-10 - J45.909)5Asthma (ICD-10 - J45.909) 5Asthma (ICD-10 - J45.909)5Asthma (ICD-10 - J45.909)11/13/2024 Asthma (ICD-10 - J45.909)5Asthma (ICD-10 - J45.909)5Asthma (ICD-10 - J45.909)5Asthma (ICD-10 - J45.909)5Asthma (ICD-10 - J45.909)5Asthma (ICD-10 - J45.909)5Asthma (ICD-10 - J45.909) 5Asthma (ICD-10 - J45.909)5Asthma (ICD-10 - J45.909)12/04/2024 Asthma (ICD-10 - J45.909)5Asthma (ICD-10 - J45.909)5Asthma (ICD-10 - J45.909)5Asthma (ICD-10 - J45.909)5Asthma (ICD-10 - J45.909)5Asthma (ICD-10 - J45.909)5Asthma (ICD-10 - J45.909) 5Asthma (ICD-10 - J45.909)5Asthma (ICD-10 - J45.909)12/29/2024 Asthma (ICD-10 - J45.909)5Asthma (ICD-10 - J45.909)5Asthma (ICD-10 - J45.909)5Asthma (ICD-10 - J45.909)5Asthma (ICD-10 - J45.909)5Asthma (ICD-10 - J45.909)5Asthma (ICD-10 - J45.909) 5Asthma (ICD-10 - J45.909)5Asthma (ICD-10 - J45.909)01/19/2025 Asthma (ICD-10 - J45.909)5Asthma (ICD-10 - J45.909)5Asthma (ICD-10 - J45.909)5Asthma (ICD-10 - J45.909)5Asthma (ICD-10 - J45.909)5Asthma (ICD-10 - J45.909)5Chronic hypoxic respiratory failure (ICD-10 - J96.11)5Chronic hypoxic respiratory failure (ICD-10 - J96.11)5Chronic hypoxic respiratory failure (ICD-10 - J96.11)01/24/2025 Chronic hypoxic respiratory failure (ICD-10 - J96.11)5Chronic hypoxic respiratory failure (ICD-10 - J96.11)5Chronic hypoxic respiratory failure (ICD-10 - J96.11)5Chronic hypoxic respiratory failure (ICD-10 - J96.11)5Chronic hypoxic respiratory failure (ICD-10 - J96.11)01/12/2025 Chronic hypoxic respiratory failure (ICD-10 - J96.11)5Chronic hypoxic respiratory failure (ICD-10 - J96.11)5Chronic hypoxic respiratory failure (ICD-10 - J96.11)5Chronic hypoxic respiratory failure (ICD-10 - J96.11)5Chronic hypoxic respiratory failure (ICD-10 - J96.11)12/31/2024 Chronic hypoxic respiratory failure (ICD-10 - J96.11)5Chronic hypoxic respiratory failure (ICD-10 - J96.11)5Chronic hypoxic respiratory failure (ICD-10 - J96.11)5Chronic hypoxic respiratory failure (ICD-10 - J96.11)5Chronic hypoxic respiratory failure (ICD-10 - J96.11)12/20/2024 Chronic hypoxic respiratory failure (ICD-10 - J96.11)5Chronic hypoxic respiratory failure (ICD-10 - J96.11)5Chronic hypoxic respiratory failure (ICD-10 - J96.11)5Chronic hypoxic respiratory failure (ICD-10 - J96.11)5Chronic hypoxic respiratory failure (ICD-10 - J96.11)12/04/2024 Chronic hypoxic respiratory failure (ICD-10 - J96.11)5Chronic hypoxic respiratory failure (ICD-10 - J96.11)5Chronic hypoxic respiratory failure (ICD-10 - J96.11)5Chronic hypoxic respiratory failure (ICD-10 - J96.11)5Chronic hypoxic respiratory failure (ICD-10 - J96.11)11/22/2024 Chronic hypoxic respiratory failure (ICD-10 - J96.11)5Chronic hypoxic respiratory failure (ICD-10 - J96.11)5Chronic hypoxic respiratory failure (ICD-10 - J96.11)5Chronic hypoxic respiratory failure (ICD-10 - J96.11)5Chronic hypoxic respiratory failure (ICD-10 - J96.11)11/10/2024 Chronic hypoxic respiratory failure (ICD-10 - J96.11)5Chronic hypoxic respiratory failure (ICD-10 - J96.11)5Chronic hypoxic respiratory failure (ICD-10 - J96.11)5Chronic hypoxic respiratory failure (ICD-10 - J96.11)5Chronic hypoxic respiratory failure (ICD-10 - J96.11)09/18/2024 Chronic hypoxic respiratory failure (ICD-10 - J96.11)09/13/2024hronic diastolic heart failure (ICD-10 - I50.32)5Asthma (ICD-10 - J45.909)09/05/2024 Asthma (ICD-10 - J45.909)5Asthma (ICD-10 - J45.909)5Asthma (ICD-10 - J45.909)5Asthma (ICD-10 - J45.909)5Asthma (ICD-10 - J45.909)5Asthma (ICD-10 - J45.909)5Asthma (ICD-10 - J45.909) 5Asthma (ICD-10 - J45.909)5Chronic diastolic heart failure (ICD-10 - I50.32)5Asthma (ICD-10 - J45.909)5Asthma (ICD-10 - J45.909)5Asthma (ICD-10 - J45.909)5Asthma (ICD-10 - J45.909) 5Asthma (ICD-10 - J45.909)5Asthma (ICD-10 - J45.909)07/30/2024 Asthma (ICD-10 - J45.909)2024sthma (ICD-10 - J45.909)07/26/2024hronic diastolic heart failure (ICD-10 - I50.32)06/16/2024Obstructive sleep apnea (adult) (pediatric) (ICD-10 - G47.33)07/23/2024Tobacco use (ICD-10 - Z72.0) 07/21/2024Tobacco use (ICD-10 - Z72.0)07/19/2024Tobacco use (ICD-10 - Z72.0) 07/16/2024Tobacco use (ICD-10 - Z72.0)07/19/2024Obstructive sleep apnea (adult) (pediatric) (ICD-10 - G47.33)07/16/2024Obstructive sleep apnea (adult) (pediatric) (ICD-10 - G47.33)07/21/2024Obstructive sleep apnea (adult) (pediatric) (ICD-10 - G47.33)07/23/2024Obstructive sleep apnea (adult) (pediatric) (ICD-10 - G47.33)07/26/2024Pulmonary hypertension (ICD-10 - I27.20) 2024hronic diastolic heart failure (ICD-10 - I50.32)07/30/2024hronic diastolic heart failure (ICD-10 - I50.32)08/02/2024hronic diastolic heart failure (ICD-10 - I50.32)08/04/2024hronic diastolic heart failure (ICD-10 - I50.32)08/06/2024hronic diastolic heart failure (ICD-10 - I50.32)08/09/2024 Chronic diastolic heart failure (ICD-10 - I50.32)5Chronic diastolic heart failure (ICD-10 - I50.32)5Chronic diastolic heart failure (ICD-10 - I50.32)08/16/2024Pulmonary hypertension (ICD-10 - I27.20)5Chronic diastolic heart failure (ICD-10 - I50.32)05/10/2025Chronic diastolic heart failure (ICD-10 - I50.32)5Chronic diastolic heart failure (ICD-10 - I50.32)5Chronic diastolic heart failure (ICD-10 - I50.32)08/27/2024 Chronic diastolic heart failure (ICD-10 - I50.32)5Chronic diastolic heart failure (ICD-10 - I50.32)5Chronic diastolic heart failure (ICD-10 - I50.32)5Chronic diastolic heart failure (ICD-10 - I50.32)09/11/2024 Chronic diastolic heart failure (ICD-10 - I50.32)09/13/2024Pulmonary hypertension (ICD-10 - I27.20)09/18/2024hronic diastolic heart failure (ICD-10 - I50.32)5Chronic diastolic heart failure (ICD-10 - I50.32)10/21/2024 Chronic diastolic heart failure (ICD-10 - I50.32)5Chronic diastolic heart failure (ICD-10 - I50.32)5Chronic diastolic heart failure (ICD-10 - I50.32)5Chronic diastolic heart failure (ICD-10 - I50.32)11/13/2024 Chronic diastolic heart failure (ICD-10 - I50.32)5Chronic diastolic heart failure (ICD-10 - I50.32)5Chronic diastolic heart failure (ICD-10 - I50.32)5Chronic diastolic heart failure (ICD-10 - I50.32)11/22/2024 Chronic diastolic heart failure (ICD-10 - I50.32)5Chronic diastolic heart failure (ICD-10 - I50.32)5Chronic diastolic heart failure (ICD-10 - I50.32)5Chronic diastolic heart failure (ICD-10 - I50.32)12/01/2024 Chronic diastolic heart failure (ICD-10 - I50.32)5Chronic diastolic heart failure (ICD-10 - I50.32)5Chronic diastolic heart failure (ICD-10 - I50.32)5Chronic diastolic heart failure (ICD-10 - I50.32)12/15/2024 Chronic diastolic heart failure (ICD-10 - I50.32)5Chronic diastolic heart failure (ICD-10 - I50.32)5Chronic diastolic heart failure (ICD-10 - I50.32)5Chronic diastolic heart failure (ICD-10 - I50.32)12/24/2024 Chronic diastolic heart failure (ICD-10 - I50.32)5Chronic diastolic heart failure (ICD-10 - I50.32)5Chronic diastolic heart failure (ICD-10 - I50.32)5Chronic diastolic heart failure (ICD-10 - I50.32)01/03/2025 Chronic diastolic heart failure (ICD-10 - I50.32)5Chronic diastolic heart failure (ICD-10 - I50.32)5Chronic diastolic heart failure (ICD-10 - I50.32)5Chronic diastolic heart failure (ICD-10 - I50.32)01/12/2025 Chronic diastolic heart failure (ICD-10 - I50.32)5Chronic diastolic heart failure (ICD-10 - I50.32)5Chronic diastolic heart failure (ICD-10 - I50.32)5Chronic diastolic heart failure (ICD-10 - I50.32)01/22/2025 Chronic diastolic heart failure (ICD-10 - I50.32)5Chronic diastolic heart failure (ICD-10 - I50.32)5Chronic diastolic heart failure (ICD-10 - I50.32)5Chronic diastolic heart failure (ICD-10 - I50.32)01/31/2025 Chronic diastolic heart failure (ICD-10 - I50.32)01/31/2025Pulmonary hypertension (ICD-10 - I27.20)01/26/2025Pulmonary hypertension (ICD-10 - I27.20) 01/29/2025Pulmonary hypertension (ICD-10 - I27.20)01/24/2025Pulmonary hypertension (ICD-10 - I27.20)01/22/2025Pulmonary hypertension (ICD-10 - I27.20) 01/17/2025Pulmonary hypertension (ICD-10 - I27.20)01/19/2025Pulmonary hypertension (ICD-10 - I27.20)01/14/2025Pulmonary hypertension (ICD-10 - I27.20) 01/12/2025Pulmonary hypertension (ICD-10 - I27.20)01/07/2025Pulmonary hypertension (ICD-10 - I27.20)01/10/2025Pulmonary hypertension (ICD-10 - I27.20) 01/05/2025Pulmonary hypertension (ICD-10 - I27.20)01/03/2025Pulmonary hypertension (ICD-10 - I27.20)12/29/2024Pulmonary hypertension (ICD-10 - I27.20) 12/31/2024Pulmonary hypertension (ICD-10 - I27.20)12/27/2024Pulmonary hypertension (ICD-10 - I27.20)12/24/2024Pulmonary hypertension (ICD-10 - I27.20) 12/20/2024Pulmonary hypertension (ICD-10 - I27.20)12/22/2024Pulmonary hypertension (ICD-10 - I27.20)12/17/2024Pulmonary hypertension (ICD-10 - I27.20) 12/15/2024Pulmonary hypertension (ICD-10 - I27.20)12/11/2024Pulmonary hypertension (ICD-10 - I27.20)12/13/2024Pulmonary hypertension (ICD-10 - I27.20) 12/04/2024Pulmonary hypertension (ICD-10 - I27.20)12/01/2024Pulmonary hypertension (ICD-10 - I27.20)11/27/2024Pulmonary hypertension (ICD-10 - I27.20) 11/29/2024Pulmonary hypertension (ICD-10 - I27.20)11/24/2024Pulmonary hypertension (ICD-10 - I27.20)11/22/2024Pulmonary hypertension (ICD-10 - I27.20) 11/17/2024Pulmonary hypertension (ICD-10 - I27.20)11/20/2024Pulmonary hypertension (ICD-10 - I27.20)11/15/2024Pulmonary hypertension (ICD-10 - I27.20) 11/13/2024Pulmonary hypertension (ICD-10 - I27.20)11/08/2024Pulmonary hypertension (ICD-10 - I27.20)11/10/2024Pulmonary hypertension (ICD-10 - I27.20) 10/30/2024Pulmonary hypertension (ICD-10 - I27.20)10/21/2024Pulmonary hypertension (ICD-10 - I27.20)09/18/2024Pulmonary hypertension (ICD-10 - I27.20) 10/08/2024ulmonary hypertension (ICD-10 - I27.20)09/13/2024Tobacco use (ICD-10 - Z72.0)09/05/2024Pulmonary hypertension (ICD-10 - I27.20)09/11/2024Pulmonary hypertension (ICD-10 - I27.20)08/30/2024Pulmonary hypertension (ICD-10 - I27.20) 09/01/2024Pulmonary hypertension (ICD-10 - I27.20)08/25/2024Pulmonary hypertension (ICD-10 - I27.20)08/27/2024Pulmonary hypertension (ICD-10 - I27.20) 08/20/2024Pulmonary hypertension (ICD-10 - I27.20)08/23/2024Pulmonary hypertension (ICD-10 - I27.20)08/18/2024Pulmonary hypertension (ICD-10 - I27.20) 08/16/2024Tobacco use (ICD-10 - Z72.0)08/11/2024Pulmonary hypertension (ICD-10 - I27.20)08/13/2024Pulmonary hypertension (ICD-10 - I27.20)08/06/2024Pulmonary hypertension (ICD-10 - I27.20)08/09/2024Pulmonary hypertension (ICD-10 - I27.20) 08/02/2024Pulmonary hypertension (ICD-10 - I27.20)08/04/2024Pulmonary hypertension (ICD-10 - I27.20)2024Pulmonary hypertension (ICD-10 - I27.20) 07/30/2024Pulmonary hypertension (ICD-10 - I27.20)07/26/2024Tobacco use (ICD-10 - Z72.0)07/26/2024Obstructive sleep apnea (adult) (pediatric) (ICD-10 - G47.33) 07/30/2024Tobacco use (ICD-10 - Z72.0)2024Tobacco use (ICD-10 - Z72.0) 08/04/2024Tobacco use (ICD-10 - Z72.0)08/02/2024Tobacco use (ICD-10 - Z72.0) 08/06/2024Tobacco use (ICD-10 - Z72.0)08/09/2024Tobacco use (ICD-10 - Z72.0) 08/11/2024Tobacco use (ICD-10 - Z72.0)08/16/2024Obstructive sleep apnea (adult) (pediatric) (ICD-10 - G47.33)08/13/2024Tobacco use (ICD-10 - Z72.0)08/18/2024 Tobacco use (ICD-10 - Z72.0)08/25/2024Tobacco use (ICD-10 - Z72.0)08/23/2024 Tobacco use (ICD-10 - Z72.0)08/20/2024Tobacco use (ICD-10 - Z72.0)08/27/2024 Tobacco use (ICD-10 - Z72.0)08/30/2024Tobacco use (ICD-10 - Z72.0)09/01/2024 Tobacco use (ICD-10 - Z72.0)09/11/2024Tobacco use (ICD-10 - Z72.0)09/05/2024 Tobacco use (ICD-10 - Z72.0)09/13/2024Obstructive sleep apnea (adult) (pediatric) (ICD-10 - G47.33)10/08/2024Tobacco use (ICD-10 - Z72.0)09/18/2024 Tobacco use (ICD-10 - Z72.0)10/21/2024Tobacco use (ICD-10 - Z72.0)10/30/2024 Tobacco use (ICD-10 - Z72.0)11/10/2024Tobacco use (ICD-10 - Z72.0)11/08/2024 Tobacco use (ICD-10 - Z72.0)11/13/2024Tobacco use (ICD-10 - Z72.0)11/15/2024 Tobacco use (ICD-10 - Z72.0)11/20/2024Tobacco use (ICD-10 - Z72.0)11/17/2024 Tobacco use (ICD-10 - Z72.0)11/22/2024Tobacco use (ICD-10 - Z72.0)11/24/2024 Tobacco use (ICD-10 - Z72.0)11/29/2024Tobacco use (ICD-10 - Z72.0)11/27/2024 Tobacco use (ICD-10 - Z72.0)12/01/2024Tobacco use (ICD-10 - Z72.0)12/04/2024 Tobacco use (ICD-10 - Z72.0)12/13/2024Tobacco use (ICD-10 - Z72.0)12/11/2024 Tobacco use (ICD-10 - Z72.0)12/15/2024Tobacco use (ICD-10 - Z72.0)12/17/2024 Tobacco use (ICD-10 - Z72.0)12/22/2024Tobacco use (ICD-10 - Z72.0)12/20/2024 Tobacco use (ICD-10 - Z72.0)12/24/2024Tobacco use (ICD-10 - Z72.0)12/27/2024 Tobacco use (ICD-10 - Z72.0)12/31/2024Tobacco use (ICD-10 - Z72.0)12/29/2024 Tobacco use (ICD-10 - Z72.0)01/03/2025Tobacco use (ICD-10 - Z72.0)01/05/2025 Tobacco use (ICD-10 - Z72.0)01/10/2025Tobacco use (ICD-10 - Z72.0)01/07/2025 Tobacco use (ICD-10 - Z72.0)01/12/2025Tobacco use (ICD-10 - Z72.0)01/14/2025 Tobacco use (ICD-10 - Z72.0)01/19/2025Tobacco use (ICD-10 - Z72.0)01/17/2025 Tobacco use (ICD-10 - Z72.0)01/22/2025Tobacco use (ICD-10 - Z72.0)01/24/2025 Tobacco use (ICD-10 - Z72.0)01/29/2025Tobacco use (ICD-10 - Z72.0)01/26/2025 Tobacco use (ICD-10 - Z72.0)01/31/2025Tobacco use (ICD-10 - Z72.0)01/31/2025 Obstructive sleep apnea (adult) (pediatric) (ICD-10 - G47.33)01/29/2025 Obstructive sleep apnea (adult) (pediatric) (ICD-10 - G47.33)01/24/2025 Obstructive sleep apnea (adult) (pediatric) (ICD-10 - G47.33)01/26/2025 Obstructive sleep apnea (adult) (pediatric) (ICD-10 - G47.33)01/22/2025 Obstructive sleep apnea (adult) (pediatric) (ICD-10 - G47.33)01/19/2025 Obstructive sleep apnea (adult) (pediatric) (ICD-10 - G47.33)01/14/2025 Obstructive sleep apnea (adult) (pediatric) (ICD-10 - G47.33)01/17/2025 Obstructive sleep apnea (adult) (pediatric) (ICD-10 - G47.33)01/12/2025 Obstructive sleep apnea (adult) (pediatric) (ICD-10 - G47.33)01/10/2025 Obstructive sleep apnea (adult) (pediatric) (ICD-10 - G47.33)01/05/2025 Obstructive sleep apnea (adult) (pediatric) (ICD-10 - G47.33)01/07/2025 Obstructive sleep apnea (adult) (pediatric) (ICD-10 - G47.33)01/03/2025 Obstructive sleep apnea (adult) (pediatric) (ICD-10 - G47.33)12/31/2024 Obstructive sleep apnea (adult) (pediatric) (ICD-10 - G47.33)12/27/2024 Obstructive sleep apnea (adult) (pediatric) (ICD-10 - G47.33)12/29/2024 Obstructive sleep apnea (adult) (pediatric) (ICD-10 - G47.33)12/24/2024 Obstructive sleep apnea (adult) (pediatric) (ICD-10 - G47.33)12/22/2024 Obstructive sleep apnea (adult) (pediatric) (ICD-10 - G47.33)12/17/2024 Obstructive sleep apnea (adult) (pediatric) (ICD-10 - G47.33)12/20/2024 Obstructive sleep apnea (adult) (pediatric) (ICD-10 - G47.33)12/15/2024 Obstructive sleep apnea (adult) (pediatric) (ICD-10 - G47.33)12/13/2024 Obstructive sleep apnea (adult) (pediatric) (ICD-10 - G47.33)12/04/2024 Obstructive sleep apnea (adult) (pediatric) (ICD-10 - G47.33)12/11/2024 Obstructive sleep apnea (adult) (pediatric) (ICD-10 - G47.33)12/01/2024 Obstructive sleep apnea (adult) (pediatric) (ICD-10 - G47.33)11/29/2024 Obstructive sleep apnea (adult) (pediatric) (ICD-10 - G47.33)11/24/2024 Obstructive sleep apnea (adult) (pediatric) (ICD-10 - G47.33)11/27/2024 Obstructive sleep apnea (adult) (pediatric) (ICD-10 - G47.33)11/22/2024 Obstructive sleep apnea (adult) (pediatric) (ICD-10 - G47.33)11/20/2024 Obstructive sleep apnea (adult) (pediatric) (ICD-10 - G47.33)11/15/2024 Obstructive sleep apnea (adult) (pediatric) (ICD-10 - G47.33)11/17/2024 Obstructive sleep apnea (adult) (pediatric) (ICD-10 - G47.33)11/13/2024 Obstructive sleep apnea (adult) (pediatric) (ICD-10 - G47.33)11/10/2024 Obstructive sleep apnea (adult) (pediatric) (ICD-10 - G47.33)10/30/2024 Obstructive sleep apnea (adult) (pediatric) (ICD-10 - G47.33)11/08/2024 Obstructive sleep apnea (adult) (pediatric) (ICD-10 - G47.33)10/21/2024 Obstructive sleep apnea (adult) (pediatric) (ICD-10 - G47.33)10/08/2024 Obstructive sleep apnea (adult) (pediatric) (ICD-10 - G47.33)09/18/2024 Obstructive sleep apnea (adult) (pediatric) (ICD-10 - G47.33)09/11/2024 Obstructive sleep apnea (adult) (pediatric) (ICD-10 - G47.33)09/01/2024 Obstructive sleep apnea (adult) (pediatric) (ICD-10 - G47.33)09/05/2024 Obstructive sleep apnea (adult) (pediatric) (ICD-10 - G47.33)08/30/2024 Obstructive sleep apnea (adult) (pediatric) (ICD-10 - G47.33)08/20/2024 Obstructive sleep apnea (adult) (pediatric) (ICD-10 - G47.33)08/23/2024 Obstructive sleep apnea (adult) (pediatric) (ICD-10 - G47.33)08/27/2024 Obstructive sleep apnea (adult) (pediatric) (ICD-10 - G47.33)08/25/2024 Obstructive sleep apnea (adult) (pediatric) (ICD-10 - G47.33)08/18/2024 Obstructive sleep apnea (adult) (pediatric) (ICD-10 - G47.33)08/13/2024 Obstructive sleep apnea (adult) (pediatric) (ICD-10 - G47.33)08/11/2024 Obstructive sleep apnea (adult) (pediatric) (ICD-10 - G47.33)08/09/2024 Obstructive sleep apnea (adult) (pediatric) (ICD-10 - G47.33)08/06/2024 Obstructive sleep apnea (adult) (pediatric) (ICD-10 - G47.33)08/02/2024 Obstructive sleep apnea (adult) (pediatric) (ICD-10 - G47.33)08/04/2024 Obstructive sleep apnea (adult) (pediatric) (ICD-10 - G47.33)07/30/2024 Obstructive sleep apnea (adult) (pediatric) (ICD-10 - G47.33)2024 Obstructive sleep apnea (adult) (pediatric) (ICD-10 - G47.33)01/31/2025OtherSejasmina in collaboration and discussed plan of care with Dr. Juana Avalos07/19/2024Other Seen in collaboration and discussed plan of care with Dr. Juana Avalos07/26/2024 OtherSeen in collaboration and discussed plan of care with Dr. Juana Avalos 2024Gerardo in collaboration and discussed plan of care with Dr. Juana Avalos08/02/2024Gerardo in collaboration and discussed plan of care with Dr. Juana Avalos08/04/2024Gerardo in collaboration and discussed plan of care with Dr. Juana Avalos08/06/2024Gerardo in collaboration and discussed plan of care with Dr. Juana Avalos08/09/2024OtherSejasmina in collaboration and discussed plan of care with Dr. Juana Avalos08/11/2024Gerardo in collaboration and discussed plan of care with Dr. Juana Avalos08/13/2024Gerardo in collaboration and discussed plan of care with Dr. Juana Avalos08/16/2024OtherArcenio in collaboration and discussed plan of care with Dr. Juana Avalos08/18/2024Gerardo in collaboration and discussed plan of care with Dr. Juana Avalos08/25/2024Gerardo in collaboration and discussed plan of care with Dr. Juana Avalos08/30/2024OtherArcenio in collaboration and discussed plan of care with Dr. Juana Talbot/22/2025Jesus Alberto Seen in collaboration and discussed plan of care with Dr. Juana Avalos09/13/2024 OtherSeen in collaboration and discussed plan of care with Dr. Juana Avalos 11/08/2024OtherSejasmina in collaboration and discussed plan of care with Dr. Juana Avalos11/10/2024OtherSejasmina in collaboration and discussed plan of care with Dr. Juana Avalos11/15/2024OtherSejasmina in collaboration and discussed plan of care with Dr. Juana Avalos11/17/2024OtherSejasmina in collaboration and discussed plan of care with Dr. Juana Avalos11/22/2024OtherSejasmina in collaboration and discussed plan of care with Dr. Juana Avalos11/24/2024OtherSejasmina in collaboration and discussed plan of care with Dr. Juana Avalos11/29/2024OtherSejasmina in collaboration and discussed plan of care with Dr. Juana Avalos12/01/2024Jesus AlbertoSejasmina in collaboration and discussed plan of care with Dr. Juana Avalos12/11/2024OtherSejasmina in collaboration and discussed plan of care with Dr. Juana Avalos12/13/2024OtherSejasmina in collaboration and discussed plan of care with Dr. Juana Avalos12/15/2024OtherSejasmina in collaboration and discussed plan of care with Dr. Juana Avalos12/20/2024Jesus Alberto Seen in collaboration and discussed plan of care with Dr. Juana Avalos12/22/2024 Gerardo in collaboration and discussed plan of care with Dr. Juana Avalos 12/27/2024OtherSejasmina in collaboration and discussed plan of care with Dr. Juana Avalos12/29/2024OtherSejasmina in collaboration and discussed plan of care with Dr. Juana Avalos12/31/2024OtherSejasmina in collaboration and discussed plan of care with Dr. Juana Avalos01/03/2025OtherSejasmina in collaboration and discussed plan of care with Dr. Juana Avalos01/05/2025OtherSejasmina in collaboration and discussed plan of care with Dr. Juana Avalos01/10/2025Jesus AlbertoSejasmina in collaboration and discussed plan of care with Dr. Juana Avalos01/12/2025OtherSejasmina in collaboration and discussed plan of care with Dr. Juana Avalos01/14/2025OtherSejasmina in collaboration and discussed plan of care with Dr. Juana Avalos01/17/2025OtherArcenio in collaboration and discussed plan of care with Dr. Juana Avalos01/19/2025OtherArcenio in collaboration and discussed plan of care with Dr. Juana Avalos01/24/2025OtherArcenio in collaboration and discussed plan of care with Dr. Juana Avalos Plan Of Treatment No Information Insurance Providers Payer Name Payer Address Payer Phone Subscriber Number Group Number Insured Name Patient Relationship to Insured Coverage Start Date Coverage End Date Medicare [place] [address] [place] [address] [id number] Jagdish Butler - patient is the insuredMedicaid [facility] [address] [id number], MistySelf - patient is the insured
--- OUTSIDE RECORDS SUMMARY | 2025-01-31 12:04 | XMS_ITS | Patient Health Record ---
Author Organization [facility] Address [address] [address] Care Team Providers Care Monorail Operator Name Role Phone Chava Denney Primary Care Provider Devi Santoyo Unavailable [phone] ALLERGIES No Known Allergies REASON FOR REFERRAL No Information MEDICATIONS Medication SIG (Take, Route, Frequency, Duration) Notes Start Date End Date Status Zoloft 50 MG 1 tablet Orally Once a day for 3 0 days 05/27/2022ctiveSyringe (Disposable) 3 MLas directed Subcutaneous USE EVERY 2 WEEKS WITH ARANESP for 30 days06/26/2022ctiveAlcohol Swabs -USE 1 TOPICAL TWICE A WEEK for 30 days06/26/2022ctiveChlorthalidone 50 MG1 tablet in the morning with food Orally Once a day for 30 days05/27/2022ctiveSodium Bicarbonate 650 MG 1 tablet Orally Twice a dayActivePregabalin 75 MG1 capsule Orally Twice a day ActivehydrALAZINE HCl 100 MG1 tablet with food Orally three times a dayActive Polysaccharide Iron Complex 150 MG1 tablet Orally Once a day for 30 days 05/27/2022ctiveNiferex-150 150 MG1 capsule Orally Once a day for 30 day(s) 05/27/2022ctive SOCIAL HISTORY Tobacco Use: Social History Observation Description Date Details (start date - stop date) Current Smoker NA - NA Sex Assigned At : Social History Observation Description Sex Assigned At Unknown Are you a smoker Question Answer Notes Patient is a current smoker How often do you smoke cigarettes?every dayHow many cigarettes a day do you smoke?11-20Are you interested in quitting?Not ready to quitAlcohol Screen Question Answer Notes Did you have a drink containing alcohol in the p ast year? No [id number] PROBLEMS Problem Type ICD Code Onset Dates Problem Status W/U Status Risk SNOMED Code Notes Problem Diabetic nephropathy (E11.21) ActiveconfirmedDiabetic nephropathy (337404182)ProblemChronic Kidney Disease stage 5 (N18.5)ActiveconfirmedChronic kidney disease stage 5 (365495138)Problem Anemia in CKD (D63.1)ActiveconfirmedAnemia of chronic renal failure (80552711) ProblemHTN CKD stage 5 or ESRD (I12.0)ActiveconfirmedHypertensive heart AND chronic kidney disease stage 5 (disorder) (98209111353786) PLAN OF TREATMENT Pending Test Test Name Order Date CBC 05/27/2022 CBC 02/03/2022 Spot Urine Protein to Creatinine Ratio 1 RENAL FUNCTION PANEL W/EGFR 02/03/2022 Renal Function Panel 06/12/2020 CBC 06/12/2020 Spot urine Albumin to Creatinine Ratio 0 06/12/2020 Future Test Test Name Order Date Renal Ultrasound 02/01/2020 Renal Ultrasound of the Kidneys and Blad mariaelena 05/13/2022 Reticulocyte Count 08/05/2022 PTH, Intact 08/05/2022 Renal Function Panel 08/05/2022 CBC 08/05/2022 Insurance Providers Payer Name Payer Address Payer Phone Subscriber Number Group Number Insured Name Patient Relationship to Insured Coverage Start Date Coverage End Date MEDICARE [address] [place], [place] [id number] Jagdish Butler - patient is the [id number] 2022[place] [employer] [facility] [address] [place], [place] [id number], MistySelf - patient is the insured MEDICAL (GENERAL) HISTORY Medical History History ICD Code Arthritis carpal tunneldepressionanxietydiabetes mellitusdiabetic nephropathy hyperlipidemiahypertensioncyst, liverasthmaChronic Kidney Disease, stage 3 peripheral neuropathySurgical History Surgery Date(Month/Year) cholecystectomy LIVER RESECTIONcolon resectionkidney biopsyHospitalization History Reason Date(Month/Year) ABDOMINAL PAIN 06/04/20 [facility] 03/14/22
[2025-01-31 12:11] LABS: Hematocrit 29.6 % (36.0-48.0); Hemoglobin 9.4 g/dL (12.0-16.0); Immature Granulocytes Abs Auto 0.08 10^3/uL (0.00-0.03); Immature Granulocytes Pct Auto 0.8 % (0.0-0.5); Lymphocytes Absolute Auto 1.3 10^3/uL (1.2-3.8); Mean Corpuscular HGB Conc 31.8 g/dL (29.9-35.2); Mean Corpuscular Hemoglobin 31.6 pg (26.7-34.0); Mean Corpuscular Volume 99.7 fL (81.0-99.0); Platelet Count 156 10^3/uL (150-450); Red Blood Count 2.97 10^6/uL (4.20-5.40); White Blood Count 10.2 10^3/uL (4.0-11.0)
[2025-01-31 12:50] LABS: Anion Gap 22.1; Blood Urea Nitrogen 58.0 mg/dL (7.0-18.0); Calcium 9.7 mg/dL (8.5-10.1); Carbon Dioxide 23.8 mmol/L (21.0-32.0); Chloride 94 mmol/L (98-107); Estimated GFR (African America 7 (>=60 mL/min/1.73m^2); Estimated GFR (Non-African Ame 6 (>=60 mL/min/1.73m^2); Glucose 181 mg/dL (74-106); Potassium 4.9 mmol/L (3.5-5.1); Sodium 135 mmol/L (136-145)
[2025-01-31 13:05] LABS: NT Pro B Type Natriuretic Pept 34338.0 pg/mL (<=450.0)
== END 2025-01-31 11:58 | disposition home or self-care (01) ==
LOC: LAB 11:57
PROVIDERS: PCP Family Medicine; Visit Provider Nurse Practitioner Family
DX: I50.9 Heart failure, unspecified (principal); J96.91 Respiratory failure, unspecified with hypoxia
CPT/HCPCS: 36415; 80048; 83880; 85025

== ENCOUNTER 2025-03-16 14:46 | Emergency (ER) | payer MEDICARE, MEDICAID, SELFPAY ==
[2025-03-16] VITALS (29 sets, daily range): BP systolic 118–180; BP diastolic 48–130; PULSE 52–70; TEMP 36.6; O2SAT 81–99; BMI 57.2
--- NOTE | 2025-03-16 14:53 | XR_ITS ---
The [address] [address] Patient Name: CARMEN MARIE MRN: [id number] date: 1980 Sex: F Assigned Patient Location: ER Current Patient Location: ER Accession/Order Number: [id number] Exam Date: 03/16/2025 15:14 Report Date: 03/16/2025 15:43 At the request of: SOFIA STOVER MD Procedure: XR chest 1V Single view chest: CLINICAL HISTORY: Shortness of breath, no dialysis for a few days COMPARISON: Chest 10/09/2023 FINDINGS: Right-sided catheter is in place. Cardiomegaly with vascular congestion with bibasilar airspace disease and pleural effusions new since 2023. No pneumothorax or free air. IMPRESSION: CHF FINDINGS NEW SINCE 2023. Impression dictated by: Grzegorz Bell Jr., D.OHaily 03/16/2025 3:43 PM Dictation Location: [place] [address] Electronically authenticated by: [id number] Y Date: 03/16/2025 15:43
--- NOTE | 2025-03-16 14:53 | ECG_ITS ---
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 Measurements Intervals [place] Rate: 53 P: -72873 [place]: -24134 QRS: 26 QRSD: 70 T: 94 QT: 480 QTc: 462 Interpretive Statements Junctional bradycardia 3233 Anteroseptal myocardial infarction, probably old 8102 Low QRS voltage in chest leads 9150 abnormal ECG No previous ECG available for comparison Electronically Signed On 03-16-2025 20:52:35 EST by CLAUDE RESENDIZ M.D.
--- NOTE | 2025-03-16 14:58 | ED_ITS ---
HPI HPI - General Adult General Chief complaint: Shortness of Breath/Dyspnea Stated complaint: ASTHMA ATTACK Time Seen by Provider: 03/16/25 14:48 Source: patient Mode of arrival: ambulance History of Present Illness HPI narrative: 44-year-old female presented to the emergency department for an asthma attack. She has a history of kidney disease and has been on dialysis for a few years. She gets dialysis 5 days a week but did not have any for the past 2 days because her port is plugged. She was going to be sent to [place] to have that issue ameliorated but she had an asthma attack. She was given her inhaler and breathing treatments and she was sent here. She says she feels somewhat better. Related Data Home Medications ?Medication ?Instructions ?Recorded ?Confirmed isosorbide mononitrate 60 mg 60 mg PO DAILY 10/09/23 0 10/09/23 tablet,extended release 24 hr lorazepam 1 mg tablet 1 mg PO Q8H 10/09/23 4 pregabalin 50 mg capsule 50 mg PO DAILY 10/09/2309/12 Allergies Allergy/AdvReac Type Severity Reaction Status Date / Time No Known Drug Allergies Allergy Verified 10/09/23 11:45 Review of Systems ROS Narrative A ten point review of systems is negative except as noted above. [facility] Medical History (Updated 03/16/25 @ 16:44 by Corrina Jaramillo) Kidney failure ?N19 - Unspecified kidney failure (ICD-10) Exam Narrative Exam Narrative: Nurses note and vital signs reviewed General:The patient is getting a breathing treatment and she is in no acute distress. Skin:Warm, dry, no pallor noted.There is no rash noted. Head:Normocephalic, atraumatic Eye: Normal conjunctiva, no drainage Ears, Nose, Mouth, and Throat: oral mucosa is moist. Nares patent. Cardiovascular:Regular Rate and Rhythm, not tachycardic Respiratory:Patient is in no distress, no accessory muscle use, lungs are clear to auscultation, no wheezing, rales or rhonchi. Good air movement present. Back:non-tender GI: Soft and nontender Musculoskeletal: The patient has no evidence of calf tenderness, no pitting edema, symmetrical pulses noted bilaterally Neurological:A&O, normal speech Psychiatric:Cooperative Constitutional Vital Signs, click to edit/add: Last Vital Signs Temp 97.8 F 03/16/25 14:47 Pulse 58 L 03/16/25 16:10 Resp 17 03/16/25 16:10 BP 118/48 L 03/16/25 14:47 Pulse Ox 87 L 03/16/25 16:17 O2 Del Method Nasal Cannula 03/16/25 16:17 O2 Flow Rate 5 03/16/25 16:17 Course Vital Signs Vital signs: Vital Signs Temperature 97.8 F 03/16/25 14:47 Pulse Rate 52 L 03/16/25 14:47 Respiratory Rate 24 H 03/16/25 14:47 Blood Pressure 118/48 L 03/16/25 14:47 Temperature 97.8 F 03/16/25 14:47 Pulse Rate 58 L 03/16/25 16:10 Respiratory Rate 17 03/16/25 16:10 Blood Pressure 118/48 L 03/16/25 14:47 Pulse Oximetry 87 L 03/16/25 16:17 Oxygen Delivery Method Nasal Cannula 03/16/25 16:17 Oxygen Delivery Flow Rate 5 03/16/25 16:17 Medical Decision Making MDM Narrative Medical decision making narrative: The patient's asthma attack has been treated by the paramedics with a aerosol treatments and she feels much better in that regard. She has a chest x-ray showing some mild heart failure and a potassium of 7.2. She needs dialysis. The patient also should be treated for this hyperkalemia acutely with IV insulin and D50. The patient adamantly refuses to allow us to even try to place an IV. She was advised of the risks including sudden cardiac . She still is fully able to make medical decisions for herself and still refuses to allow us to even try an IV start. I have spoken to the county surveyor at [facility] who accepts the patient. The patient is stable and agreeable for transfer. She will likely need dialysis tonight. She was given oral Kayexalate here. Differential Diagnosis Differential Diagnosis: Asthma, heart failure, pneumonia, renal failure, hyperkalemia Lab Data Lab results reviewed: Yes I reviewed the patient's lab results Labs: Lab Results 03/16/25 Range/Units 15:08 WBC 7.6 (4.0-11.0) 10^3/uL RBC 2.65 L (4.20-5.40) 10^6/uL Hgb 8.3 L (12.0-16.0) g/dL Hct 26.1 L (36.0-48.0) % MCV 98.5 (81.0-99.0) fL MCH 31.3 (26.7-34.0) pg MCHC 31.8 (29.9-35.2) g/dL RDW 18.0 H (11.0-15.0) % Plt Count 146 L (150-450) 10^3/uL MPV 9.3 L (9.5-13.5) fL Neut % (Auto) 66.8 (43.0-75.0) % Lymph % (Auto) 20.1 L (20.5-60.0) % [place] % (Auto) 9.9 (1.7-12.0) % Eos % (Auto) 2.6 (0.9-7.0) % Baso % (Auto) 0.5 (0.2-2.0) % Neut # (Auto) 5.1 (1.4-6.5) 10^3/uL Lymph # (Auto) 1.5 (1.2-3.8) 10^3/uL [place] # (Auto) 0.8 (0.3-0.8) 10^3/uL Eos # (Auto) 0.2 (0.0-0.7) 10^3/uL Baso # (Auto) 0.0 (0.0-0.1) 10^3/uL Abs Immat Gran (auto) 0.01 (0.00-0.03) 10^3/uL Imm/Tot Granulo (auto) 0.1 (0.0-0.5) % Sodium 137 (136-145) mmol/L Potassium 7.2 H* (3.5-5.1) mmol/L Chloride 99 (98-107) mmol/L Carbon Dioxide 25.2 (21.0-32.0) mmol/L Anion Gap 20.0 BUN 101.0 H* (7.0-18.0) mg/dL Creatinine 13.26 H* (0.55-1.02) mg/dL Est GFR ( Amer) 4 L (>=60 mL/min/1.73m^2) Est GFR (Non-Af Amer) 3 L (>=60 mL/min/1.73m^2) BUN/Creatinine Ratio 7.6 Glucose 167 H (74-106) mg/dL Calcium 8.9 (8.5-10.1) mg/dL Imaging Data Chest x-ray: Radiologist's impression: Procedure: XR chest 1V Single view chest: CLINICAL HISTORY: Shortness of breath, no dialysis for a few days COMPARISON: Chest 10/09/2023 FINDINGS: Right-sided catheter is in place. Cardiomegaly with vascular congestion with bibasilar airspace disease and pleural effusions new since 2023. No pneumothorax or free air. IMPRESSION: CHF FINDINGS NEW SINCE 2023. Impression dictated by: Grzegorz Bell Jr. D.OHaily 03/16/2025 3:43 PM ECG Data Attestation: I personally reviewed and interpreted this ECG as follows: (EKG on my interpretation shows rate of 53. She does not appear to have P waves and has narrow complex. This is possibly a junctional rhythm.) Critical Care Time Critical Care Time Critical Care Time: Yes Total Critical Care Time: 45 Attestation: Due to the high probability of sudden and clinically significant deterioration in the patient's condition he/she required the highest level of my preparedness to intervene urgently I provided critical care time including documentation time, medication orders and management, reevaluation, vital sign assessment, ordering and reviewing of lab tests, ordering and reviewing of x-ray studies, and admission orders. Aggregate critical care time is 45 minutes including only time during which I was engaged in work directly related to his/her care and did not include time spent treating other patients simultaneously. Discharge Plan Discharge Chief Complaint: Shortness of Breath/Dyspnea Clinical Impression: Hyperkalemia Patient Disposition: [facility] Time of Disposition Decision: 16:43 Discharge Location: [facility] Condition: Critical Mode of Transportation: EMS
--- NOTE | 2025-03-16 15:02 | PC.NURSE ---
after watching pt on room air for several min. pt drops to 89-90%. NC placed at 3L.
[2025-03-16 15:17] LABS: Hematocrit 26.1 % (36.0-48.0); Hemoglobin 8.3 g/dL (12.0-16.0); Immature Granulocytes Abs Auto 0.01 10^3/uL (0.00-0.03); Immature Granulocytes Pct Auto 0.1 % (0.0-0.5); Lymphocytes Absolute Auto 1.5 10^3/uL (1.2-3.8); Mean Corpuscular HGB Conc 31.8 g/dL (29.9-35.2); Mean Corpuscular Hemoglobin 31.3 pg (26.7-34.0); Mean Corpuscular Volume 98.5 fL (81.0-99.0); Platelet Count 146 10^3/uL (150-450); Red Blood Count 2.65 10^6/uL (4.20-5.40); White Blood Count 7.6 10^3/uL (4.0-11.0)
[2025-03-16 15:25] LABS: Anion Gap 20.0; Calcium 8.9 mg/dL (8.5-10.1); Carbon Dioxide 25.2 mmol/L (21.0-32.0); Chloride 99 mmol/L (98-107); Estimated GFR (African America 4 (>=60 mL/min/1.73m^2); Estimated GFR (Non-African Ame 3 (>=60 mL/min/1.73m^2); Glucose 167 mg/dL (74-106); Sodium 137 mmol/L (136-145)
[2025-03-16 15:26] LABS: Potassium 7.2 mmol/L (3.5-5.1)
[2025-03-16 15:27] LABS: Blood Urea Nitrogen 101.0 mg/dL (7.0-18.0)
--- NOTE | 2025-03-16 15:55 | PC.NURSE ---
pt oxygen dropping, on check pt was found slouched in bed, informed pt just checking to see if oxygen was ok and if oxygen needed increased. pt has nc on and was not wanting anything done. pt left on 3L nc.
--- NOTE | 2025-03-16 16:17 | PC.NURSE ---
pt sleeping, oxygen turned up to 5L while pt sleeping d/t low oxygen levels.
[2025-03-16] MEDS: SODIUM POLYSTYRENE SULFON 15 GM/60 ML ORAL.SUSP KAYEXALATE 30 GM PO (16:49)
== END 2025-03-16 19:02 | disposition short-term general hospital (02) ==
PROVIDERS: Emergency Provider Emergency Medicine; PCP Family Medicine
DX: E87.5 Hyperkalemia (principal); Z99.2 Dependence on renal dialysis; N28.9 Disorder of kidney and ureter, unspecified; I50.9 Heart failure, unspecified
CPT/HCPCS: 36415; 71045; 80048; 85025; 93005; 99285